=== PATIENT | female | born 1970 | race Caucasian/White ===

== ENCOUNTER 2016-07-21 12:32 | Emergency (ER) | payer SELFPAY ==
[2016-07-21] MEDS ORDERED: Rocephin 1000 MG INJ IM ONE (12:43)
[2016-07-21] MEDS ORDERED: Rocephin 1000 MG INJ ONE (12:46)
[2016-07-21] MEDS ORDERED: XYLOCAINE 1% HCL 20 ML MDV ONE (12:47)
--- NOTE | 2016-07-21 12:47 | ERPHSYRPT ---
- History of Present Illness Time Seen by Provider: 07/21/16 12:44 Source: patient Exam Limitations: no limitations Patient Subjective Stated Complaint: left side of jaw swollen gargled salt water and its continued to swell Triage Nursing Assessment: patient left side of jaw swollen, major tooth decay in patients mouth Physician History: left side of jaw swollen gargled salt water and its continued to swell for 2-3 days Timing/Duration: day(s) (2-3 days) Severity: moderate Allergies/Adverse Reactions: aspirin Allergy (Verified 02/15/16 01:50) Hx Tetanus, Diphtheria Vaccination/Date Given: No Hx Influenza Vaccination/Date Given: No Hx Pneumococcal Vaccination/Date Given: No Immunizations Up to Date: No - Review of Systems Constitutional: No Symptoms Eyes: No Symptoms Ears, Nose, & Throat: Mouth Pain, Mouth Swelling, Loose Teeth Respiratory: No Symptoms Cardiac: No Symptoms Abdominal/Gastrointestinal: No Symptoms - Past Medical History Pertinent Past Medical History: Yes Other Medical History: BLOOD DISORDER: LUAN WILDEBRENDS - Past Surgical History Past Surgical History: Yes Female Surgical History: Tubal Ligation Other Surgical History: TUBAL LIGATION IN 1991 - Social History Smoking Status: Current every day smoker How long have you smoked: 30 Exposure to second hand smoke: Yes Drug Use: none Patient Lives Alone: No - Nursing Vital Signs Nursing Vital Signs: Initial Vital Signs Temperature 98.2 F Temperature Source Oral Pulse Rate 89 Respiratory Rate 20 Blood Pressure [Left Arm] 178/87 Pain Intensity 9 - Physical Exam General Appearance: no apparent distress Eye Exam: PERRL/EOMI Ears, Nose, Throat Exam: normal ENT inspection, other (multiple teeth decays) SpO2: 98 Oxygen Delivery: Room Air - Course Nursing assessment & vital signs reviewed: Yes - Progress Progress: unchanged Counseled pt/family regarding: diagnosis, need for follow-up - Departure Time of Disposition: 12:45 Departure Disposition: Home Clinical Impression: Dental caries extending into pulp Condition: Stable Critical Care Time: No Referrals: LUISA DELACRUZ MD [Primary Care Provider] - Instructions: Tooth Decay Additional Instructions: Please follow the instructions given to you. Please take your medication as prescribed if given. If symptoms recur or get worse, come back to the emergency room if you cannot reach your primary care physician, or call your primary care physician for an appointment. Again if your symptoms get worse, come back to the emergency room. Thanks for visiting emergency room, and let us take care of you. Prescriptions: Cephalexin Mh 500 mg [Keflex 500 mg] 500 mg PO Q6H #40 capsule
[2016-07-21 13:14] VITALS: BP 155/79; PULSE 79; O2SAT 100
== END 2016-07-21 13:14 | disposition home or self-care (01) ==
LOC: ED 12:32
DX: K02.9 Dental caries, unspecified (principal)
CPT/HCPCS: 96372; 99282; J0696

== ENCOUNTER 2016-08-21 01:15 | Emergency (ER) | payer SELFPAY ==
[2016-08-21] MEDS ORDERED: Rocephin 1000 MG INJ IM ONE (01:33)
[2016-08-21] MEDS ORDERED: PERCOCET TABLET 5/325MG PO STA (01:33)
--- NOTE | 2016-08-21 01:46 | ERPHSYRPT ---
- History of Present Illness Time Seen by Provider: 08/21/16 01:22 Source: patient Exam Limitations: no limitations Patient Subjective Stated Complaint: pt states she has had pain and swelling in her lt lower jaw for approx 3-4 days. states she came here to the er (does not know what day) and was prescribed keflex. states it isnt working. Triage Nursing Assessment: pt alert and oriented. answers questions approp. pt ambulatory with steady gait noted. respirations nonlabored. lungs cta. skin pink warm and dry. pt has multiple blackened teeth and swelling to lt lower jaw. Physician History: FOR THE PAST 5 DAYS PT HAS HAD PAINFUL SWELLING OF HER LEFT LOWER JAW; DENIES FEVER, VOMITING, CHEST PAIN, SHORTNESS OF AIR. Allergies/Adverse Reactions: aspirin Allergy (Verified 02/15/16 01:50) Home Medications: No Home Meds 1 ea UD 08/21/16 [History] Hx Tetanus, Diphtheria Vaccination/Date Given: No Hx Influenza Vaccination/Date Given: No Hx Pneumococcal Vaccination/Date Given: No Immunizations Up to Date: No - Review of Systems Constitutional: No Fever Ears, Nose, & Throat: Other (LEFT LOWER JAW SWELLING & PAIN) Respiratory: No Dyspnea Cardiac: No Chest Pain All Other Systems: Reviewed and Negative - Past Medical History Pertinent Past Medical History: Yes Other Medical History: BLOOD DISORDER: LUAN WILDEBRENDS - Past Surgical History Past Surgical History: Yes Female Surgical History: Tubal Ligation Other Surgical History: TUBAL LIGATION IN 1991 - Social History Smoking Status: Current every day smoker How long have you smoked: 30 Exposure to second hand smoke: Yes Drug Use: none Patient Lives Alone: No - Female History Hx Last Menstrual Period: 08/12/16 - Nursing Vital Signs Nursing Vital Signs: Initial Vital Signs Temperature 100.6 F Temperature Source Oral Pulse Rate 100 Respiratory Rate 16 Blood Pressure [Right Arm] 187/99 Pain Intensity 8 - Physical Exam General Appearance: alert Eye Exam: bilateral eye: PERRL, EOMI Ear Exam: bilateral ear: TM normal Nasal Exam: normal inspection Throat Exam: mandibular swelling (MILD EDEMA, ERYTHEMA AND TENDERNESS OF THE GUM SURROUNDING A LEFT MANDIBULAR PREMOLAR.), moist mucus membranes Neck Exam: trachea midline Cardiovascular/Respiratory Exam: normal breath sounds, heart sounds normal Abdominal Exam: soft (B.S. NORMAL) Neurologic Exam: alert, cooperative Skin Exam: warm, dry SpO2 Interpretation: normal SpO2: 98 Oxygen Delivery: Room Air - Course Nursing assessment & vital signs reviewed: Yes Ordered Tests: Medication Summary Discontinued Medications Generic Name Dose Route Start Last Admin Trade Name Tabitha PRN Reason Stop Dose Admin Ceftriaxone Sodium 1,000 mg 08/21/16 01:33 Rocephin 1000 Mg Inj IM 08/21/16 01:34 STAT ONE Oxycodone/Acetaminophen 2 tab 08/21/16 01:33 Percocet Tablet 5/325mg PO 08/21/16 01:34 SENT HOME W/ PATIENT STA - Departure Time of Disposition: 01:48 Departure Disposition: Home Clinical Impression: TOOTH ABSCESS Condition: Fair Critical Care Time: No Instructions: Tooth Abscess Additional Instructions: FOLLOW UP WITH PRIVATE DOCTOR & DENTIST LATER TODAY. Prescriptions: Naproxen [Naprosyn] 500 mg PO [id number] PRN #20 tablet PRN Reason: Pain Ciprofloxacin HCl 500 mg [Cipro 500 MG] 500 mg PO BIDAC #20 tablet
[2016-08-21] MEDS ORDERED: PERCOCET TABLET 5/325MG ONE (02:02)
[2016-08-21] MEDS ORDERED: Rocephin 1000 MG INJ ONE (02:02)
[2016-08-21] MEDS ORDERED: XYLOCAINE 1% HCL 20 ML MDV ONE (02:02)
[2016-08-21 02:17] VITALS: O2SAT 97
[2016-08-21 03:04] VITALS: BP 167/87; PULSE 86
== END 2016-08-21 02:40 | disposition home or self-care (01) ==
LOC: ED 01:15
DX: K04.7 Periapical abscess without sinus (principal); R22.0 Localized swelling, mass and lump, head; R68.84 Jaw pain
CPT/HCPCS: 96365; 96372; 99284; J0696

== ENCOUNTER 2017-07-01 16:58 | Emergency (ER) | payer OTHER ==
[2017-07-01] MEDS ORDERED: TORAdol 30 mg Injection IM ONE (17:28)
--- NOTE | 2017-07-01 17:28 | ERPHSYRPT ---
- History of Present Illness Time Seen by Provider: 07/01/17 17:23 Source: patient Exam Limitations: no limitations Patient Subjective Stated Complaint: Pt states "My face has been swollen since this morning. I have tried calling dentists all day and no one accepts my insurance." Triage Nursing Assessment: Pt alert and oriented X 3,s kin pwd. Pt ambulates with an upright steady gait, able to speak in clear full sentences. Pt upper right jaw swollen, lower left slightly swollen, several dental carries noted in mouth upon inspection Physician History: The patient is a 47-year-old female with her complaining of front upper gum tenderness and swelling that began this morning. She has known poor dentition. She'll the worked half a day today. She is currently taking cephalexin for another infection. She has tried calling the dentist office today without being able to find an appointment. Her past medical history is significant for appendicitis and dental caries. Timing/Duration: gradual onset Severity: moderate ENT Location: dental Prearrival Treatment: no prearrival treatment Modifying Factors: Improves With: nothing Associated Symptoms: facial pain/swelling Allergies/Adverse Reactions: aspirin Allergy (Verified 02/15/16 01:50) Hx Tetanus, Diphtheria Vaccination/Date Given: Yes Hx Influenza Vaccination/Date Given: No Hx Pneumococcal Vaccination/Date Given: No Immunizations Up to Date: Yes - Review of Systems Constitutional: No Fever, No Chills Eyes: No Symptoms Ears, Nose, & Throat: Mouth Pain Respiratory: No Cough, No Dyspnea Cardiac: No Chest Pain, No Edema, No Syncope Abdominal/Gastrointestinal: No Abdominal Pain, No Nausea, No Vomiting, No Diarrhea Genitourinary Symptoms: No Dysuria Musculoskeletal: No Back Pain, No Neck Pain Skin: No Rash Neurological: No Dizziness, No Focal Weakness, No Sensory Changes Psychological: No Symptoms Endocrine: No Symptoms Hematologic/Lymphatic: No Symptoms Immunological/Allergic: No Symptoms All Other Systems: Reviewed and Negative - Past Medical History Pertinent Past Medical History: Yes Other Medical History: BLOOD DISORDER: LUAN WILDEBRENDS - Past Surgical History Past Surgical History: Yes Female Surgical History: Tubal Ligation Other Surgical History: TUBAL LIGATION IN 1991 - Social History Smoking Status: Current every day smoker How long have you smoked: years Exposure to second hand smoke: Yes Drug Use: none Patient Lives Alone: No - Female History Hx Last Menstrual Period: 06/30/2017 Hx Now: No - Nursing Vital Signs Nursing Vital Signs: Initial Vital Signs Temperature 97.3 F 07/01/17 17:05 Pulse Rate 92 H 07/01/17 17:05 Respiratory Rate 18 07/01/17 17:05 Blood Pressure 177/90 07/01/17 17:05 O2 Sat by Pulse Oximetry 100 07/01/17 17:05 Pain Scale Pain Intensity 6 - Physical Exam General Appearance: mild distress Eye Exam: bilateral eye: normal inspection Ear Exam: bilateral ear: auricle normal Throat Exam: dental tenderness (upper anterior gum swelling, redness, and tenderness. Poor dentition.) Neck Exam: supple Cardiovascular/Respiratory Exam: chest non-tender Abdominal Exam: non-tender, soft Neurologic Exam: alert Skin Exam: normal color, warm, dry SpO2 Interpretation: normal SpO2: 100 Oxygen Delivery: Room Air - Progress Counseled pt/family regarding: diagnosis - Departure Time of Disposition: 17:32 Departure Disposition: Home Clinical Impression: Dental abscess Condition: Stable Critical Care Time: No Referrals: LUISA DELACRUZ MD [Primary Care Provider] - Additional Instructions: You have a dental abscess in the front of the upper jaw. You were given Toradol 60 mg by IM in the ER. Take penicillin VK 500 mg 4 times a day for 10 days. Follow up as soon as possible with a dentist. Prescriptions: Penicillin V Potassium 500 mg PO QID #40 tablet
[2017-07-01] MEDS ORDERED: TORAdol 30 mg Injection ONE (17:52)
[2017-07-01 18:40] VITALS: BP 176/88; PULSE 86; O2SAT 98
== END 2017-07-01 18:07 | disposition home or self-care (01) ==
LOC: ED 16:58
DX: K04.7 Periapical abscess without sinus (principal)
CPT/HCPCS: 96372; 99283; 99284; J1885

== ENCOUNTER 2017-07-03 23:57 | Emergency (ER) | payer OTHER ==
[2017-07-04] MEDS ORDERED: Sodium Chloride 0.9% 1000 ML 1,000 ML IV STA (00:58)
[2017-07-04] MEDS ORDERED: MORPHINE SULFATE 4 MG INJ IV ONE (00:58)
[2017-07-04] MEDS ORDERED: Zofran 4 MG/2 ML VIAL IV ONE (00:58)
--- NOTE | 2017-07-04 01:05 | ERPHSYRPT ---
- History of Present Illness Time Seen by Provider: 07/04/17 00:58 Historian: patient Exam Limitations: no limitations Patient Subjective Stated Complaint: Emesis Triage Nursing Assessment: Pt states onset of emesis and nausea x2 days ago, pt states unable to eat or drink anything due to nausea. Pt states so also has LLQ abdominal pain. Pt denies chest pain, sob or other complaints. Pt is A&O x4, no distress noted. Skin PWD. Physician History: Pt is c/o LLQ abdominal pain, left flank pain, started 2 days ago, vomiting frequently, denies fever, cold symptoms except mild, nonproductive cough, no chest pain, SOB, diarrhea, urinary complaints. Timing/Duration: day(s) (2), worse Activities at Onset: none Quality: cramping Abdominal Pain Onset Location: LLQ Pain Radiation: flank Severity of Pain-Max: severe Severity of Pain-Current: severe Modifying Factors: Improves With: nothing Associated Symptoms: nausea, vomiting Previous symptoms: no prior history Allergies/Adverse Reactions: aspirin Allergy (Verified 02/15/16 01:50) Penicillins Adverse Reaction (Mild, Verified 07/04/17 00:58) Nausea and Vomiting Hx Tetanus, Diphtheria Vaccination/Date Given: No Hx Influenza Vaccination/Date Given: No Hx Pneumococcal Vaccination/Date Given: No Immunizations Up to Date: No - Review of Systems Constitutional: No Symptoms Abdominal/Gastrointestinal: Abdominal Pain, Nausea, Vomiting, No Diarrhea Genitourinary Symptoms: No Symptoms All Other Systems: Reviewed and Negative - Past Medical History Pertinent Past Medical History: Yes Other Medical History: BLOOD DISORDER: LUAN WILDEBRENDS - Past Surgical History Past Surgical History: Yes Gastrointestinal: Appendectomy Female Surgical History: Tubal Ligation Other Surgical History: TUBAL LIGATION IN 1991 - Social History Smoking Status: Current every day smoker How long have you smoked: 30 years Exposure to second hand smoke: Yes Drug Use: none Patient Lives Alone: No - Female History Hx Now: No - Nursing Vital Signs Nursing Vital Signs: Initial Vital Signs Temperature 99.6 F 07/04/17 00:50 Pulse Rate 108 H 07/04/17 00:50 Respiratory Rate 18 07/04/17 00:50 Blood Pressure 169/96 07/04/17 00:50 O2 Sat by Pulse Oximetry 97 07/04/17 00:50 Pain Scale Pain Intensity 3 - Physical Exam General Appearance: no apparent distress Eye Exam: eyes nml inspection Ears, Nose, Throat Exam: normal ENT inspection Neck Exam: normal inspection, non-tender, supple Respiratory Exam: normal breath sounds, lungs clear Cardiovascular Exam: regular rate/rhythm, normal heart sounds, normal peripheral pulses, No murmur Gastrointestinal/Abdomen Exam: soft, normal bowel sounds, tenderness (LLQ, mod. mild diffuse- abd. ), No distention, No mass Back Exam: CVA tenderness (left) Extremity Exam: normal inspection Neurologic Exam: alert, oriented x 3 Skin Exam: normal color, warm, dry, No rash Lymphatic Exam: No adenopathy SpO2 Interpretation: normal SpO2: 97 Oxygen Delivery: Room Air - CT Exams Abdomen/Pelvis CT Interpretation: Negative Ordered Tests: Active Orders 24 hr Category Date Time Status IV Insertion STAT Care 07/04/17 00:58 Active NPO (ED) STAT Care 07/04/17 00:58 Active ABDOMEN AND PELVIS W/0 CONTRAS [CT] Stat Exams 07/04/17 00:59 Taken AMYLASE Stat Lab 07/04/17 01:15 Completed CBC W DIFF Stat Lab 07/04/17 01:15 Completed CMP Stat Lab 07/04/17 01:15 Completed HCG,QUALITATIVE URINE Stat Lab 07/04/17 01:15 Completed LIPASE Stat Lab 07/04/17 01:15 Completed UA W/RFX UR CULTURE Stat Lab 07/04/17 01:15 Completed Medication Summary Discontinued Medications Generic Name Dose Route Start Last Admin Trade Name Freq PRN Reason Stop Dose Admin Sodium Chloride 1,000 mls @ 999 mls/hr 07/04/17 00:58 07/04/17 02:00 Sodium Chloride 0.9% 1000 Ml IV 07/04/17 01:58 999 mls/hr .Q1H1M STA Administration Sodium Chloride Confirm 07/04/17 01:24 Sodium Chloride 0.9% 1000 Ml Administered 07/04/17 01:25 Dose 1,000 mls @ ud .ROUTE .STK-MED ONE Morphine Sulfate 4 mg 07/04/17 00:58 07/04/17 02:00 Morphine Sulfate 4 Mg Inj IV 07/04/17 00:59 4 mg STAT ONE Administration Morphine Sulfate Confirm 07/04/17 01:24 Morphine Sulfate 4 Mg Inj Administered 07/04/17 01:25 Dose 4 mg .ROUTE .STK-MED ONE Ondansetron HCl 4 mg 07/04/17 00:58 07/04/17 02:01 Zofran 4 Mg/2 Ml Vial IV 07/04/17 00:59 4 mg STAT ONE Administration Ondansetron HCl Confirm 07/04/17 01:24 Zofran 4 Mg/2 Ml Vial Administered 07/04/17 01:25 Dose 4 mg .ROUTE .STK-MED ONE Lab/Rad Data: Laboratory Result Diagrams 07/04/17 01:15 07/04/17 01:15 Laboratory Results 07/04/17 07/04/17 07/04/17 Range/Units 01:15 01:15 01:15 WBC (4.0-10.5) K/mm3 RBC (4.1-5.4) M/mm3 Hgb (12.0-16.0) gm/dl Hct (35-47) % MCV (78-100) fl MCH (26-32) pg MCHC (32-36) g/dl RDW (11.5-14.0) % Plt Count (150-450) K/mm3 MPV (6-9.5) fl Gran % (36.0-66.0) % Lymphocytes % (24.0-44.0) % Monocytes % (0.0-12.0) % Eosinophils % (0.00-5.0) % Basophils % (0.0-0.4) % Basophils # (0-0.4) Sodium 139 (136-145) mEq/L Potassium 3.5 (3.5-5.1) mEq/L Chloride 102 (98-107) mEq/L Carbon Dioxide 28.9 (21-32) mEq/L Anion Gap 11.6 (5-15) MEQ/L BUN 12 (9-20) mg/dL Creatinine 1.15 (0.55-1.30) mg/dl Estimated GFR 54 ML/MIN Glucose 117 H (70-110) MG/DL Calcium 9.0 (8.5-10.1) mg/dL Total Bilirubin 1.00 (0.2-1.0) mg/dL AST 16 (15-37) U/L ALT 14 (12-78) U/L Alkaline Phosphatase 68 (46-116) U/L Serum Total Protein 7.1 (6.4-8.2) gm/dL Albumin 3.7 (3.4-5.0) g/dL Amylase 54 (25-115) U/L Lipase 129 (73-393) U/L Ur Collection Type CLEAN CATCH Urine Color YELLOW (YELLOW) Urine Appearance CLEAR (CLEAR) Urine pH 5.0 (5-6) Ur Specific [place] 1.015 (1.005-1.025) Urine Protein NEGATIVE (Negative) Urine Ketones NEGATIVE (NEGATIVE) Urine Blood NEGATIVE (0-5) Kareem/ul Urine Nitrite NEGATIVE (NEGATIVE) Urine Bilirubin NEGATIVE (NEGATIVE) Urine Urobilinogen NORMAL (0-1) mg/dL Ur Leukocyte Esterase NEGATIVE (NEGATIVE) Urine Culture Reflexed NO (NO) Urine Glucose 50 (NEGATIVE) mg/dL Urine HCG, Qual NEGATIVE (Negative) Specimen Received 07/04/17 0115 07/04/17 Range/Units 01:15 WBC 5.1 (4.0-10.5) K/mm3 RBC 4.84 (4.1-5.4) M/mm3 Hgb 13.1 (12.0-16.0) gm/dl Hct 40.3 (35-47) % MCV 83.3 (78-100) fl MCH 27.1 (26-32) pg MCHC 32.5 (32-36) g/dl RDW 15.4 H (11.5-14.0) % Plt Count 226 (150-450) K/mm3 MPV 10.4 H (6-9.5) fl Gran % 63.5 (36.0-66.0) % Lymphocytes % 24.2 (24.0-44.0) % Monocytes % 11.9 (0.0-12.0) % Eosinophils % 0.2 (0.00-5.0) % Basophils % 0.2 (0.0-0.4) % Basophils # 0.01 (0-0.4) Sodium (136-145) mEq/L Potassium (3.5-5.1) mEq/L Chloride (98-107) mEq/L Carbon Dioxide (21-32) mEq/L Anion Gap (5-15) MEQ/L BUN (9-20) mg/dL Creatinine (0.55-1.30) mg/dl Estimated GFR ML/MIN Glucose (70-110) MG/DL Calcium (8.5-10.1) mg/dL Total Bilirubin (0.2-1.0) mg/dL AST (15-37) U/L ALT (12-78) U/L Alkaline Phosphatase (46-116) U/L Serum Total Protein (6.4-8.2) gm/dL Albumin (3.4-5.0) g/dL Amylase (25-115) U/L Lipase (73-393) U/L Ur Collection Type Urine Color (YELLOW) Urine Appearance (CLEAR) Urine pH (5-6) Ur Specific [place] (1.005-1.025) Urine Protein (Negative) Urine Ketones (NEGATIVE) Urine Blood (0-5) Kareem/ul Urine Nitrite (NEGATIVE) Urine Bilirubin (NEGATIVE) Urine Urobilinogen (0-1) mg/dL Ur Leukocyte Esterase (NEGATIVE) Urine Culture Reflexed (NO) Urine Glucose (NEGATIVE) mg/dL Urine HCG, Qual (Negative) Specimen Received - Progress Progress: improved Progress Note: 07/04/17 03:20 Improved after iv Morphine, Zofran and fluids, afebrile, no severe pain or vomiting. Stable. I informed her and renetta about the results, and suggested 2-3 days rest and liquid diet, and return if any worsening, follow up with her PCP next week, she understood, and agreed with the plan. All questions answered. - Departure Time of Disposition: 03:22 Departure Disposition: Home Clinical Impression: Abdominal pain Qualifiers: Abdominal location: left lower quadrant Qualified Code(s): R10.32 - Left lower quadrant pain Condition: Stable Critical Care Time: No Referrals: LUISA DELACRUZ MD [Primary Care Provider] - Instructions: Vomiting -- Adult, Acute Abdomen (Belly Pain), Adult (DC) Additional Instructions: Rest x 2-3 days, drink plenty of fluids, return if severe pain, vomiting, fever > 102 F! Prescriptions: Ondansetron [Zofran Odt] 4 mg PO Q6H PRN PRN 7 Days #10 tab.rapdis PRN Reason: Nausea/Vomiting Dicyclomine HCl 20 mg [Bentyl 20 mg] 20 mg PO Q8H PRN PRN #15 tablet PRN Reason: Pain
[2017-07-04] MEDS ORDERED: Zofran 4 MG/2 ML VIAL ONE (01:24)
[2017-07-04] MEDS ORDERED: Sodium Chloride 0.9% 1000 ML 1,000 ML ONE (01:24)
[2017-07-04] MEDS ORDERED: MORPHINE SULFATE 4 MG INJ ONE (01:24)
[2017-07-04 01:26] LABS: BASOPHIL % 0.2 % (0.0-0.4); Basophil (Absolute #) 0.01 (0-0.4); Eosinophil % 0.2 % (0.00-5.0); Eosinophil (Absolute #) 0.01 (0-0.5); Granulocyte Absolute (ANC) 3.21 (1.4-6.9); Granulocytes % 63.5 % (36.0-66.0); Hematocrit 40.3 % (35-47); Hemoglobin 13.1 gm/dl (12.0-16.0); Lymphocyte (Absolute #) 1.22 (1.0-4.6); Lymphocytes % 24.2 % (24.0-44.0); Mean Cell Volume 83.3 fl (78-100); Mean Corpuscular Hemoglobin 27.1 pg (26-32); Mean Corpuscular Hgb Concent. 32.5 g/dl (32-36); Mean Platelet Volume 10.4 fl (6-9.5); Monocytes % 11.9 % (0.0-12.0); Platelet Count 226 K/mm3 (150-450); Red Blood Count 4.84 M/mm3 (4.1-5.4); Red Cell Distribution Width 15.4 % (11.5-14.0); White Blood Count 5.1 K/mm3 (4.0-10.5)
[2017-07-04 01:31] LABS: Appearance CLEAR (CLEAR)
[2017-07-04 01:32] LABS: Bilirubin NEGATIVE (NEGATIVE); Blood NEGATIVE Ery/ul (0-5); Glucose 50 mg/dL (NEGATIVE); Ketones NEGATIVE (NEGATIVE); Leukocyte Esterase NEGATIVE (NEGATIVE); Nitrite NEGATIVE (NEGATIVE); Protein,Urine Dip NEGATIVE (Negative); Specific Gravity 1.015 (1.005-1.025); Urobilinogen NORMAL mg/dL (0-1)
[2017-07-04 01:47] LABS: ALBUMIN 3.7 g/dL (3.4-5.0); ANION GAP 11.6 MEQ/L (5-15); Carbon Dioxide 28.9 mEq/L (21-32); Creatinine 1 1.15 mg/dl (0.55-1.30); Potassium 3.5 mEq/L (3.5-5.1); Total Protein 7.1 gm/dL (6.4-8.2)
[2017-07-04 03:38] VITALS: BP 152/90; PULSE 80; O2SAT 98
--- NOTE | 2017-07-04 09:43 | XRAY ---
Indication: Left lower quadrant pain. Multiple contiguous axial images obtained through the abdomen and pelvis without contrast as ordered. Comparison: February 15, 2016. Lung bases demonstrates minimal fibrosis/scarring. No infiltrate or effusion. Heart is not enlarged. Noncontrasted stomach and bowel loops nonobstructed. There is mild diffuse scattered colonic fecal debris. Interval appendectomy. New 2.5 cm right ovary cyst. No free fluid/air. Spleen remains enlarged today 14.3 cm in greatest axial dimension. Again mild fatty liver. Remaining liver, gallbladder, pancreas, spleen, adrenal glands, kidneys, ureters, bladder, and uterus appear unremarkable for noncontrast exam. There remains mild aortoiliac calcifications without AAA. Osseous structures intact. Impression: 1. Mild fecal stasis without obstruction. 2. Incidental splenomegaly, fatty liver, and 2.5 cm right ovary cyst. 3. No acute intra-abdominal/pelvic abnormalities on this noncontrast exam. Comment: Preliminary interpretation was made by [facility]. No critical discrepancy. CTDI 21.39
== END 2017-07-04 03:41 | disposition home or self-care (01) ==
LOC: ED 23:57
DX: R10.32 Left lower quadrant pain (principal); R11.2 Nausea with vomiting, unspecified
CPT/HCPCS: 36000; 36415; 74176; 80053; 81002; 82150; 83690; 84703; 85025; 96374; 96375; 99284; J2270; J2405

== ENCOUNTER 2018-04-29 21:02 | Emergency (ER) | payer OTHER ==
[2018-04-29 21:14] VITALS: BP 197/95; PULSE 84; O2SAT 100
[2018-04-29] MEDS ORDERED: Norco 10/325 MG Tablet PO ONE (21:33)
[2018-04-29] MEDS ORDERED: NORCO 5/325 MG PO ONE (21:34)
[2018-04-29] MEDS ORDERED: Augmentin 875-125 Tablet PO ONE (21:34)
--- NOTE | 2018-04-29 21:35 | ERPHSYRPT ---
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 pt is ambulatory. pt comes in with complaint of dental pain on the left side of her mouth. pt saw dentist about 3 weeks ago and was put on an antibiotic but did not finish it "because it wasn't working". pt has multiple black and rotting teeth, chipped teeth, very poor dentition. Triage Nursing Assessment: see above Physician History: PATIENT WITH A HISTORY OF TYPE 2 DIABETES, AND HYPERTENSION, COMPLAINS OF LEFT UPPER DENTAL PAIN WITH WIDESPREAD DENTAL CARIES. EVALUATED BY DENTIST 2 WEEKS AGO AWAITING REFERRAL. DENIES FEVER, CHILLS, DIFFICULTY SWALLOWING OR BREATHING. Timing/Duration: gradual onset Severity: severe ENT Location: dental Prearrival Treatment: prescription meds ( DISCONTINUED ANTIBIOTICS) Modifying Factors: Improves With: nothing Associated Symptoms: facial pain/swelling Allergies/Adverse Reactions: aspirin Allergy (Verified 02/15/16 01:50) Home Medications: Bisoprolol/Hydrochlorothiazide [Bisoprolol-Hctz 2.5-6.25 mg Tb] 1 tab PO DAILY 04/29/18 [History] Glimepiride 1 tab PO DAILY 04/29/18 [History] Metformin HCl 500 mg [Glucophage 500 MG] 500 mg PO DAILY 04/29/18 [History ] Hx Tetanus, Diphtheria Vaccination/Date Given: No Hx Influenza Vaccination/Date Given: No Hx Pneumococcal Vaccination/Date Given: No Immunizations Up to Date: Yes - Review of Systems Constitutional: No Symptoms Ears, Nose, & Throat: Mouth Pain, Loose Teeth Respiratory: No Symptoms Cardiac: No Symptoms Abdominal/Gastrointestinal: No Symptoms Musculoskeletal: No Symptoms - Past Medical History Pertinent Past Medical History: Yes Neurological History: No Pertinent History ENT History: No Pertinent History Cardiac History: Hypertension Respiratory History: No Pertinent History Endocrine Medical History: Diabetes Type II Musculoskeletal History: No Pertinent History GI Medical History: No Pertinent History History: No Pertinent History Psycho-Social History: No Pertinent History Female Reproductive Disorders: No Pertinent History Other Medical History: BLOOD DISORDER: LUAN WILDEBRENDS - Past Surgical History Past Surgical History: Yes Neuro Surgical History: No Pertinent History Cardiac: No Pertinent History Respiratory: No Pertinent History Gastrointestinal: Appendectomy Genitourinary: No Pertinent History Female Surgical History: Tubal Ligation Other Surgical History: TUBAL LIGATION IN 1991 - Social History Smoking Status: Current every day smoker How long have you smoked: 31 years Exposure to second hand smoke: Yes Drug Use: none Patient Lives Alone: No - Female History Hx Now: No - Nursing Vital Signs Nursing Vital Signs: Initial Vital Signs Temperature 98.1 F 04/29/18 21:02 Pulse Rate 84 04/29/18 21:02 Respiratory Rate 20 04/29/18 21:02 Blood Pressure 197/95 04/29/18 21:02 O2 Sat by Pulse Oximetry 100 04/29/18 21:02 Pain Scale Pain Intensity 9 - Physical Exam General Appearance: no apparent distress Eye Exam: bilateral eye: normal inspection, PERRL, EOMI Ear Exam: bilateral ear: auricle normal, canal normal, TM normal Nasal Exam: normal inspection Throat Exam: dental tenderness (WIDESPREAD DENTAL CARIES WITH EROSIONS INTO GINGIVA WITH GINGIVAL SWELLING, POSTERIOR PHARYNX NEGATIVE) Neck Exam: normal inspection, non-tender Cardiovascular/Respiratory Exam: chest non-tender, normal breath sounds SpO2 Interpretation: normal SpO2: 100 Oxygen Delivery: Room Air Ordered Tests: Medication Summary Discontinued Medications Generic Name Dose Route Start Last Admin Trade Name Freq PRN Reason Stop Dose Admin Hydrocodone Bitart/Acetaminophen 1 tab 04/29/18 21:33 Thorofare 10/325 Mg Tablet PO 04/29/18 21:34 STAT ONE Hydrocodone Bitart/Acetaminophen 2 tab 04/29/18 21:34 Thorofare 5/325 Mg PO 04/29/18 21:35 SENT HOME W/ PATIENT ONE Amoxicillin/Clavulanate Potassium 875 mg 04/29/18 21:34 Augmentin 875-125 Tablet PO 04/29/18 21:35 STAT ONE - Progress Progress Note: 04/29/18 21:40 ADMINISTERED AUGMENTIN 875MG AND NORCO 10/325 ORALLY 04/29/18 21:42 ACCUCHECK 109 Counseled pt/family regarding: diagnosis - Departure Time of Disposition: 22:00 Departure Disposition: Home Clinical Impression: WIDESPREAD DENTAL CARIES Condition: Stable Critical Care Time: No Referrals: LUISA DELACRUZ MD [Primary Care Provider] - Additional Instructions: FOLLOWUP WITH YOUR DENTIST TOMORROW FOR EVALUATION. ANTIBIOTIC AUGMENTIN 875MG TWICE DAILY FOR 10 DAYS. NORCO 5/325 EVERY 6 HOURS FOR PAIN. CONSULT YOUR PRIMARY CARE PROVIDER FOR FOLLOWUP. Prescriptions: Hydrocodone Bit/Acetaminophen [Thorofare 5-325 Tablet] 1 each PO Q4H PRN PRN #10 tablet MDD 4 PRN Reason: Pain Amox Tr/Potass Clav. 875 mg [Augmentin 875-125 Tablet] 875 mg PO BID #20 tablet
[2018-04-29] MEDS ORDERED: NORCO 5/325 MG ONE (21:40)
[2018-04-29] MEDS ORDERED: Augmentin 875-125 Tablet ONE (21:40)
[2018-04-29] MEDS ORDERED: Norco 10/325 MG Tablet ONE (21:41)
== END 2018-04-29 21:56 | disposition home or self-care (01) ==
LOC: ED 21:02
DX: K02.9 Dental caries, unspecified (principal); Z79.899 Other long term (current) drug therapy
CPT/HCPCS: 99283; A9270-GY

== ENCOUNTER 2018-05-26 19:08 | Emergency (ER) | payer OTHER ==
--- NOTE | 2018-05-26 19:34 | ERPHSYRPT ---
- History of Present Illness Time Seen by Provider: 05/26/18 19:25 Source: patient Patient Subjective Stated Complaint: body aches cough and congestion. diarrhea x1 nausea. significant other dx with influenza yesterday Triage Nursing Assessment: wheezes noted on lung ausc. no vomiting and diarrhea noted as of yet. skin warm and dry. face appears flushed Physician History: 48 y/o white female presents with body aches, cough and congestion and diarrhea today. pts sig other dx with flu yesterday. pt was placed on a z pack for dental infection recently and took last dose today. no vomiting but a little nausea Timing/Duration: today Cough Quality/Degree: mild Possible Cause: occasional episodes Modifying Factors: Improves With: coughing Associated Symptoms: cough, muscle aches International travel in last 2 weeks: No Allergies/Adverse Reactions: aspirin Allergy (Verified 02/15/16 01:50) Home Medications: Bisoprolol/Hydrochlorothiazide [Bisoprolol-Hctz 2.5-6.25 mg Tb] 1 tab PO DAILY 04/29/18 [History] Glimepiride 1 tab PO DAILY 04/29/18 [History] Metformin HCl 500 mg [Glucophage 500 MG] 500 mg PO DAILY 04/29/18 [History ] Hx Tetanus, Diphtheria Vaccination/Date Given: No Hx Influenza Vaccination/Date Given: No Hx Pneumococcal Vaccination/Date Given: No Immunizations Up to Date: Yes - Review of Systems Constitutional: No Symptoms, Fever Eyes: No Symptoms, Discharge Ears, Nose, & Throat: No Symptoms, No Ear Pain, No Nose Congestion Respiratory: Cough, No Dyspnea, No Stridor, No Wheezing Cardiac: No Symptoms Abdominal/Gastrointestinal: No Symptoms, Nausea, No Vomiting, No Diarrhea Genitourinary Symptoms: No Symptoms, No Dysuria, No Hematuria Musculoskeletal: No Symptoms Skin: No Symptoms Neurological: No Symptoms Psychological: No Symptoms Endocrine: No Symptoms Hematologic/Lymphatic: No Symptoms Immunological/Allergic: No Symptoms All Other Systems: Reviewed and Negative - Past Medical History Pertinent Past Medical History: Yes Neurological History: No Pertinent History ENT History: No Pertinent History Cardiac History: Hypertension Respiratory History: No Pertinent History Endocrine Medical History: Diabetes Type II Musculoskeletal History: No Pertinent History GI Medical History: No Pertinent History History: No Pertinent History Psycho-Social History: No Pertinent History Female Reproductive Disorders: No Pertinent History Other Medical History: BLOOD DISORDER: LUAN WILDEBRENDS - Past Surgical History Past Surgical History: Yes Neuro Surgical History: No Pertinent History Cardiac: No Pertinent History Respiratory: No Pertinent History Gastrointestinal: Appendectomy Genitourinary: No Pertinent History Female Surgical History: Tubal Ligation Other Surgical History: TUBAL LIGATION IN 1991 - Social History Smoking Status: Current every day smoker How long have you smoked: 31 years Exposure to second hand smoke: Yes Drug Use: none Patient Lives Alone: No - Female History Hx Last Menstrual Period: occasional Hx Now: No - Nursing Vital Signs Nursing Vital Signs: Initial Vital Signs Temperature 97.4 F 05/26/18 19:16 Pulse Rate 89 05/26/18 19:16 Respiratory Rate 16 05/26/18 19:16 Blood Pressure 180/99 05/26/18 19:16 O2 Sat by Pulse Oximetry 99 05/26/18 19:16 Pain Scale Pain Intensity 2 - Physical Exam General Appearance: no apparent distress, alert, anxiety Ears, Nose, Throat Exam: normal ENT inspection, TMs normal, pharynx normal Neck Exam: normal inspection, non-tender, supple, full range of motion Respiratory Exam: normal breath sounds, lungs clear, airway intact, No chest tenderness, No respiratory distress, No accessory muscle use, No rhonchi, No wheezing, No stridor Cardiovascular Exam: regular rate/rhythm, normal heart sounds, normal peripheral pulses Gastrointestinal/Abdomen Exam: soft, normal bowel sounds, No tenderness, No guarding, No rebound Pelvic Exam: not done Rectal Exam: not done Back Exam: normal inspection, normal range of motion, No CVA tenderness, No vertebral tenderness Extremity Exam: normal inspection, normal range of motion, pelvis stable Neurologic Exam: alert, oriented x 3, cooperative, qualification engineer II-XII nml as tested Skin Exam: normal color, warm, dry Lymphatic Exam: No adenopathy SpO2 Interpretation: normal SpO2: 99 Oxygen Delivery: Room Air Lab/Rad Data: Laboratory Results 05/26/18 Range/Units 19:36 Influenza Type A Ag NEGATIVE (NEGATIVE) Influenza Type B Ag NEGATIVE (NEGATIVE) RSV (PCR) NEGATIVE (Negative) - Progress Progress: re-examined Air Movement: good Counseled pt/family regarding: lab results, diagnosis, need for follow-up - Departure Time of Disposition: 20:30 Departure Disposition: Home Clinical Impression: Bronchitis Condition: Stable Critical Care Time: No Referrals: JAYME,LUISA, MD [Primary Care Provider] - Additional Instructions: drink plenty of fluids. follow up with primary doctor for further management Prescriptions: Albuterol 8 gm Mdi Hfa [Ventolin Hfa MDI] 8 gm IH Q4H #1 [email or web address] Hydrocodone Bit/Acetaminophen [Hydrocodone-Acetaminophen Soln] 10 ml PO Q6H # 120 ml
[2018-05-26 20:14] VITALS: BP 134/82
[2018-05-26 20:24] LABS: INFLUENZA A NEGATIVE (NEGATIVE); INFLUENZA B NEGATIVE (NEGATIVE); RESPIRATORY SYNCTIAL VIRUS NEGATIVE (Negative)
[2018-05-26 20:34] VITALS: O2SAT 99
[2018-05-26] MEDS ORDERED: HYDROCODONE-ACETAMIN 2.5-108/5 ML SOLUTION PO STA (20:34)
[2018-05-26] MEDS ORDERED: DELTASONE 10 MG PO ONE (20:35)
[2018-05-26] MEDS ORDERED: HYDROCODONE-ACETAMIN 2.5-108/5 ML SOLUTION ONE (20:39)
[2018-05-26] MEDS ORDERED: DELTASONE 20 MG ONE (20:39)
[2018-05-26 20:46] VITALS: PULSE 86
== END 2018-05-26 21:02 ==
LOC: ED 19:08
DX: J40 Bronchitis, not specified as acute or chronic (principal)
CPT/HCPCS: 87631; 99284; A9270-GY

== ENCOUNTER 2018-07-14 00:43 | Emergency (ER) | payer OTHER ==
--- NOTE | 2018-07-14 01:11 | ERPHSYRPT ---
- History of Present Illness Time Seen by Provider: 07/14/18 01:06 Source: patient, family Exam Limitations: no limitations Patient Subjective Stated Complaint: Left sided dental pain Triage Nursing Assessment: Patient ambulated back to ED and transferred self to bed. Patient A+O X 3. Patient's skin pink, warm and dry. Patient complains of left sided dental/jaw pain. Left jaw noted to be swollen and tender 5/10. Patient has been using orajel, which has helped some. Physician History: The patient is a 48-year-old female with her daughter complaining of worsening left-sided lower dental pain that began yesterday but has worsened today. She has known poor dentition. She wants to get her teeth pulled and have dentures. She denies fever or chills. She states her left lower jaw is swollen and tender. Her past medical history is significant for dental caries, DM, and HTN. Timing/Duration: gradual onset, yesterday Severity: moderate ENT Location: dental Prearrival Treatment: no prearrival treatment Modifying Factors: Improves With: nothing Associated Symptoms: facial pain/swelling, jaw pain, tooth pain Allergies/Adverse Reactions: aspirin Allergy (Verified 07/14/18 00:59) Home Medications: Bisoprolol/Hydrochlorothiazide [Bisoprolol-Hctz 2.5-6.25 mg Tb] 1 tab PO DAILY 04/29/18 [History] Glimepiride 1 tab PO DAILY 04/29/18 [History] Metformin HCl 500 mg [Glucophage 500 MG] 500 mg PO DAILY 04/29/18 [History ] Hx Tetanus, Diphtheria Vaccination/Date Given: No Hx Influenza Vaccination/Date Given: No Hx Pneumococcal Vaccination/Date Given: No Immunizations Up to Date: Yes - Review of Systems Constitutional: No Fever, No Chills Eyes: No Symptoms Ears, Nose, & Throat: Mouth Pain Respiratory: No Cough, No Dyspnea Cardiac: No Chest Pain, No Edema, No Syncope Abdominal/Gastrointestinal: No Abdominal Pain, No Nausea, No Vomiting, No Diarrhea Genitourinary Symptoms: No Dysuria Musculoskeletal: No Back Pain, No Neck Pain Skin: No Rash Neurological: No Dizziness, No Focal Weakness, No Sensory Changes Psychological: No Symptoms Endocrine: No Symptoms Hematologic/Lymphatic: No Symptoms Immunological/Allergic: No Symptoms All Other Systems: Reviewed and Negative - Past Medical History Pertinent Past Medical History: Yes Neurological History: No Pertinent History ENT History: No Pertinent History Cardiac History: Hypertension Respiratory History: No Pertinent History Endocrine Medical History: Diabetes Type II Musculoskeletal History: No Pertinent History GI Medical History: No Pertinent History History: No Pertinent History Psycho-Social History: No Pertinent History Female Reproductive Disorders: No Pertinent History Other Medical History: BLOOD DISORDER: LUAN WILDEBRENDS - Past Surgical History Past Surgical History: Yes Neuro Surgical History: No Pertinent History Cardiac: No Pertinent History Respiratory: No Pertinent History Gastrointestinal: Appendectomy Genitourinary: No Pertinent History Musculoskeletal: No Pertinent History Female Surgical History: Tubal Ligation Other Surgical History: TUBAL LIGATION IN 1991 - Social History Smoking Status: Current every day smoker How long have you smoked: since Exposure to second hand smoke: Yes Drug Use: none Patient Lives Alone: No - Female History Hx Last Menstrual Period: 2 weeks ago Hx Now: No - Nursing Vital Signs Nursing Vital Signs: Initial Vital Signs Temperature 98.9 F 07/14/18 00:52 Pulse Rate 114 H 07/14/18 00:52 Respiratory Rate 18 07/14/18 00:52 Blood Pressure 194/87 07/14/18 00:52 O2 Sat by Pulse Oximetry 100 07/14/18 00:52 Pain Scale Pain Intensity 5 - Physical Exam General Appearance: no apparent distress, alert Eye Exam: bilateral eye: normal inspection Ear Exam: bilateral ear: auricle normal Nasal Exam: normal inspection Throat Exam: dental tenderness (Oral examination reveals significant dental caries throughout. Left lower jaw shows gum erythema and swelling.), mandibular swelling Neck Exam: supple Cardiovascular/Respiratory Exam: normal breath sounds, regular rate/rhythm Abdominal Exam: non-tender, soft Neurologic Exam: alert, oriented x 3, sensation nml, No motor deficits Skin Exam: normal color, warm, dry SpO2 Interpretation: normal SpO2: 100 O2 Delivery: Room Air - Progress Progress: improved Counseled pt/family regarding: diagnosis, need for follow-up - Departure Time of Disposition: :10 Departure Disposition: Home Clinical Impression: Dental abscess Condition: Stable Critical Care Time: No Referrals: LUISA DELACRUZ MD [Primary Care Provider] - Additional Instructions: You have a dental abscess in your left lower jaw. You were given Toradol 60 mg by IM and penicillin 500 mg orally in the ER. Take penicillin 500 mg 4 times a day for 10 days. Take naproxen 500 mg 2 times a day as needed. Follow-up with your dentist in the next few days. Prescriptions: Naproxen 500 mg PO BID PRN #30 tablet Penicillin V Potassium 500 mg PO QID #40 tablet
[2018-07-14] MEDS ORDERED: TORAdol 30 mg Injection ONE (01:15)
[2018-07-14] MEDS ORDERED: PEN-VEE K ONE (01:16)
[2018-07-14] MEDS: PEN-VEE K PO ONE (01:19)
[2018-07-14] MEDS: TORAdol 30 mg Injection IM ONE (01:19)
[2018-07-14 01:37] VITALS: BP 159/96; PULSE 92; O2SAT 96
== END 2018-07-14 01:37 | disposition home or self-care (01) ==
LOC: ED 00:43
DX: K04.7 Periapical abscess without sinus (principal); E11.9 Type 2 diabetes mellitus without complications; Z79.4 Long term (current) use of insulin; I10 Essential (primary) hypertension; Z72.0 Tobacco use; Z79.899 Other long term (current) drug therapy
CPT/HCPCS: 96372; 99283; J1885; A9270-GY

== ENCOUNTER 2018-09-18 18:00 | Emergency (ER) | payer OTHER ==
[2018-09-18 18:13] VITALS: BP 157/97; PULSE 90; O2SAT 100
--- NOTE | 2018-09-18 18:35 | ERPHSYRPT ---
- History of Present Illness Time Seen by Provider: 09/18/18 18:15 Source: patient Exam Limitations: clinical condition Patient Subjective Stated Complaint: mouth pain on the left upper and lower Triage Nursing Assessment: Pt c/o of left sided mouth pain on the upper and lower x 2 days, unable to see any inflammation, hypertensive, rates pain 5/10 as a dull constant ache, poor oral hygeine Physician History: PATIENT COMPLAINS OF LEFT UPPER DENTAL PAIN X 4-5 DAYS. DENIES FEVER, FACIAL SWELLING, CHILLS, DIFFICULTY SWALLOWING OR BREATHING. Timing/Duration: gradual onset Severity: moderate ENT Location: dental Prearrival Treatment: no prearrival treatment Modifying Factors: Improves With: other Associated Symptoms: denies symptoms, tooth pain Allergies/Adverse Reactions: aspirin Allergy (Verified 09/18/18 18:13) Home Medications: Bisoprolol/Hydrochlorothiazide [Bisoprolol-Hctz 2.5-6.25 mg Tb] 1 tab PO DAILY 04/29/18 [History] Glimepiride 1 tab PO DAILY 04/29/18 [History] Metformin HCl 500 mg [Glucophage 500 MG] 500 mg PO DAILY 04/29/18 [History ] Hx Tetanus, Diphtheria Vaccination/Date Given: No Hx Influenza Vaccination/Date Given: No Hx Pneumococcal Vaccination/Date Given: No - Review of Systems Constitutional: No Fever, No Chills Eyes: No Symptoms Ears, Nose, & Throat: No Symptoms, Loose Teeth, Other (DENTAL PAIN) Respiratory: No Symptoms, No Cough, No Dyspnea Cardiac: No Chest Pain, No Edema, No Syncope Abdominal/Gastrointestinal: Abdominal Pain, No Nausea, No Vomiting, No Diarrhea Genitourinary Symptoms: No Dysuria Musculoskeletal: No Back Pain, No Neck Pain Skin: No Rash Neurological: No Dizziness, No Focal Weakness, No Sensory Changes Psychological: No Symptoms Endocrine: No Symptoms All Other Systems: Reviewed and Negative - Past Medical History Pertinent Past Medical History: Yes Neurological History: No Pertinent History ENT History: No Pertinent History Cardiac History: Hypertension Respiratory History: No Pertinent History Endocrine Medical History: Diabetes Type II Musculoskeletal History: No Pertinent History GI Medical History: No Pertinent History History: No Pertinent History Psycho-Social History: No Pertinent History Female Reproductive Disorders: No Pertinent History Other Medical History: BLOOD DISORDER: LUAN MONIQUEEBRENDS - Past Surgical History Past Surgical History: Yes Neuro Surgical History: No Pertinent History Cardiac: No Pertinent History Respiratory: No Pertinent History Gastrointestinal: Appendectomy Genitourinary: No Pertinent History Musculoskeletal: No Pertinent History Female Surgical History: Tubal Ligation Other Surgical History: TUBAL LIGATION IN 1991 - Social History Smoking Status: Current every day smoker How long have you smoked: since 15 Exposure to second hand smoke: Yes Drug Use: none Patient Lives Alone: No - Female History Hx Now: No (tubal) - Nursing Vital Signs Nursing Vital Signs: Initial Vital Signs Temperature 98.2 F 09/18/18 18:04 Pulse Rate 90 09/18/18 18:04 Respiratory Rate 14 09/18/18 18:04 Blood Pressure 157/97 09/18/18 18:04 O2 Sat by Pulse Oximetry 100 09/18/18 18:04 Pain Scale Pain Intensity 6 - Physical Exam General Appearance: no apparent distress, alert Eye Exam: bilateral eye: normal inspection, PERRL, EOMI Ear Exam: bilateral ear: auricle normal, canal normal Nasal Exam: normal inspection Throat Exam: dental tenderness (WIDESPREAD DENTAL CARIES WITH EROSIONS INTO GINGIVA) Neck Exam: supple Cardiovascular/Respiratory Exam: chest non-tender SpO2: 100 - Progress Counseled pt/family regarding: diagnosis, need for follow-up - Departure Departure Disposition: Home Clinical Impression: WIDESPREAD DENTAL CARIES Condition: Stable Critical Care Time: No Referrals: LUISA DELACRUZ MD [Primary Care Provider] - Additional Instructions: FOLLOWUP WITH YOUR FAMILY PHYSICIAN FOR REFERRAL TO A DENTIST. ANTIBIOTIC AUGMENTIN 875MG TWICE DAILY FOR 10 DAYS. NORCO 5/325 EVERY 6 HOURS NEEDED FOR PAIN. Prescriptions: Hydrocodone/APAP 5-325 Tab^^^ [[place] 5-325 Tablet^^^] 1 tab PO Q6HPRN PRN #10 tablet MDD 6 PRN Reason: Pain Amox Tr/Potass Clav. 875 mg [Augmentin 875-125 Tablet] 875 mg PO BID #20 tablet
== END 2018-09-18 18:51 | disposition home or self-care (01) ==
LOC: ED 18:00
DX: K02.9 Dental caries, unspecified (principal); K13.79 Other lesions of oral mucosa; R13.10 Dysphagia, unspecified; E11.9 Type 2 diabetes mellitus without complications; Z79.4 Long term (current) use of insulin; I10 Essential (primary) hypertension
CPT/HCPCS: 99283

== ENCOUNTER 2018-10-18 02:51 | Emergency (ER) | payer OTHER ==
--- NOTE | 2018-10-18 03:31 | ERPHSYRPT ---
- History of Present Illness Time Seen by Provider: 10/18/18 03:15 Source: patient Exam Limitations: no limitations Patient Subjective Stated Complaint: pt c/o left flank pain starting 4 days ago that radiates to left abd/pelvis. c/o nausea no vomiting, denies diarrhea/ constipation, denies fever. Triage Nursing Assessment: pink/warm/dry, resp easy, a&ox4, steady gait, abd soft and tender, no distress noted at this time. Physician History: 48 y/o white diabetic female with h/o htn, presents with 4 day h/o left flank pain that radiates to left groin. no abd pain and no n/v/d. pt currently on her menstrual period that began 2 days ago Timing/Duration: day(s) (4) Activites at Onset: none Quality: aching Onset Location: left flank, groin (left) Severity of Pain-Max: moderate Severity of Pain-Current: mild Associated Symptoms: lower back pain (left), No abdominal pain, No diaphoresis, No nausea, No vomiting, No dysuria Allergies/Adverse Reactions: aspirin Allergy (Verified 10/18/18 02:57) Home Medications: Bisoprolol/Hydrochlorothiazide [Bisoprolol-Hctz 2.5-6.25 mg Tb] 1 tab PO HS 01/07 [History] Glimepiride 1 tab PO DAILY 04/29/18 [History] Metformin HCl 500 mg [Glucophage 500 MG] 500 mg PO DAILY 04/29/18 [History ] Hx Tetanus, Diphtheria Vaccination/Date Given: Yes Hx Influenza Vaccination/Date Given: No Hx Pneumococcal Vaccination/Date Given: No - Review of Systems Constitutional: No Symptoms Eyes: No Symptoms Ears, Nose, & Throat: No Symptoms Respiratory: No Symptoms Cardiac: No Symptoms Abdominal/Gastrointestinal: No Symptoms Genitourinary Symptoms: Flank Pain (left) Musculoskeletal: No Symptoms Skin: No Symptoms Neurological: No Symptoms Psychological: No Symptoms Endocrine: No Symptoms Hematologic/Lymphatic: No Symptoms Immunological/Allergic: No Symptoms All Other Systems: Reviewed and Negative - Past Medical History Pertinent Past Medical History: Yes Neurological History: No Pertinent History ENT History: No Pertinent History Cardiac History: Hypertension Respiratory History: No Pertinent History Endocrine Medical History: Diabetes Type II Musculoskeletal History: No Pertinent History GI Medical History: No Pertinent History History: No Pertinent History Psycho-Social History: No Pertinent History Female Reproductive Disorders: No Pertinent History Other Medical History: BLOOD DISORDER: LUAN MONIQUEEBRENDS - Past Surgical History Past Surgical History: Yes Neuro Surgical History: No Pertinent History Cardiac: No Pertinent History Respiratory: No Pertinent History Gastrointestinal: Appendectomy Genitourinary: No Pertinent History Musculoskeletal: No Pertinent History Female Surgical History: Tubal Ligation Other Surgical History: TUBAL LIGATION IN 1991 - Social History Smoking Status: Current every day smoker How long have you smoked: since 15 Exposure to second hand smoke: Yes Drug Use: none Patient Lives Alone: No - Female History Hx Last Menstrual Period: now Hx Now: No - Nursing Vital Signs Nursing Vital Signs: Initial Vital Signs Temperature 98.9 F 10/18/18 02:58 Pulse Rate 88 10/18/18 02:58 Respiratory Rate 16 10/18/18 02:58 Blood Pressure 184/102 10/18/18 02:58 O2 Sat by Pulse Oximetry 100 10/18/18 02:58 Pain Scale Pain Intensity 8 - Physical Exam General Appearance: mild distress, alert Eye Exam: PERRL/EOMI Ears, Nose, Throat Exam: normal ENT inspection, moist mucous membranes Neck Exam: normal inspection, non-tender, supple, full range of motion Respiratory Exam: normal breath sounds, lungs clear, airway intact, No chest tenderness, No respiratory distress Cardiovascular Exam: regular rate/rhythm, normal heart sounds, normal peripheral pulses Gastrointestinal/Abdomen Exam: soft, normal bowel sounds, No tenderness, No guarding, No rebound Pelvic Exam: not done Rectal Exam: not done Back Exam: normal inspection, normal range of motion, CVA tenderness (left), No vertebral tenderness Extremity Exam: normal inspection, normal range of motion, pelvis stable Neurologic Exam: alert, oriented x 3, cooperative, incident coordinator II-XII nml as tested, normal mood/affect, nml cerebellar function, nml station & gait Skin Exam: normal color, warm, dry Lymphatic Exam: No adenopathy SpO2 Interpretation: normal SpO2: 100 O2 Delivery: Room Air - Course Nursing assessment & vital signs reviewed: Yes Ordered Tests: Active Orders 24 hr Category Date Time Status ABDOMEN AND PELVIS W/0 CONTRAS [CT] Stat Exams 10/18/18 03:34 Taken CULTURE,URINE Stat Lab 10/18/18 03:16 Received HCG,QUALITATIVE URINE Stat Lab 04/28/19 03:16 Completed UA W/RFX UR CULTURE Stat Lab 10/18/18 03:16 Completed Lab/Rad Data: Laboratory Results 10/18/18 10/18/18 Range/Units 03:16 03:16 Urine Color YELLOW (YELLOW) Urine Appearance SLIGHTLY CLOUDY (CLEAR) Urine pH 6.0 (5-6) Ur Specific Fowler 1.023 (1.005-1.025) Urine Protein 30 (Negative) Urine Ketones NEGATIVE (NEGATIVE) Urine Blood SMALL (0-5) Kareem/ul Urine Nitrite NEGATIVE (NEGATIVE) Urine Bilirubin NEGATIVE (NEGATIVE) Urine Urobilinogen 2 (0-1) mg/dL Ur Leukocyte Esterase TRACE (NEGATIVE) Urine WBC (Auto) 3-5 (0-5) /HPF Urine RBC (Auto) 11-15 (0-2) /HPF U Epithel Cells (Auto) RARE (FEW) /HPF Urine Bacteria (Auto) NONE (NEGATIVE) /HPF Urine Mucus (Auto) SLIGHT (NEGATIVE) /HPF Urine Culture Reflexed YES (NO) Urine Glucose NEGATIVE (NEGATIVE) mg/dL Urine HCG, Qual NEGATIVE (Negative) - Progress Progress: unchanged Air Movement: good Progress Note: 10/18/18 04:58 ct abd/pelvis-no acute intraabd process Blood Culture(s) Obtained: No Antibiotics given: No Counseled pt/family regarding: lab results, diagnosis, need for follow-up, rad results - Departure Departure Disposition: Home Clinical Impression: Left flank pain Condition: Stable Critical Care Time: No Referrals: LUISA DELACRUZ MD [Primary Care Provider] - Additional Instructions: drink plenty of fluids. use tylenol for pain. follow up with primary doctor for persistent symptoms
[2018-10-18 03:41] LABS: Appearance SLIGHTLY CLOUDY (CLEAR); Bilirubin NEGATIVE (NEGATIVE); Blood SMALL Ery/ul (0-5); Epithelial Cells RARE /HPF (FEW); Glucose NEGATIVE (NEGATIVE); Ketones NEGATIVE (NEGATIVE); Leukocyte Esterase TRACE (NEGATIVE); Mucus SLIGHT /HPF (NEGATIVE); Nitrite NEGATIVE (NEGATIVE); Protein,Urine Dip 30 (Negative); Specific Gravity 1.023 (1.005-1.025); Urobilinogen 2 mg/dL (0-1)
[2018-10-18] MEDS ORDERED: NORCO 5/325 MG PO ONE (04:59)
[2018-10-18] MEDS ORDERED: NORCO 5/325 MG ONE (05:11)
[2018-10-18 05:12] VITALS: BP 133/90; PULSE 79; O2SAT 95
--- NOTE | 2018-10-18 08:10 | XRAY ---
Indication: Left flank pain. Multiple contiguous axial images obtained through the abdomen and pelvis without contrast as ordered. Comparison: July 04, 2017. Lung bases remain clear. Heart is not enlarged. Noncontrasted stomach and bowel loops appear nonobstructed. And appendectomy. Again mild diffuse scattered colonic fecal debris, more than before. No free fluid/air. Stable fatty liver. Spleen remains enlarged today measuring 13 cm. Prominent uterus with endometrial cavity thickening, possible menses. A few prominent left ovary follicular cyst, largest 1.7 cm. Remaining liver, gallbladder, pancreas, spleen, adrenal glands, kidneys, ureters, and bladder appear unremarkable for noncontrast exam. Again mild aortoiliac calcifications without AAA. Osseous structures intact. No ventral or inguinal hernias. Impression: 1. Again mild fecal stasis without obstruction. 2. Prominent uterus with endometrial cavity thickening and prominent left ovary cysts. Correlate with patient's menstrual cycle. Pelvic sonogram may yield further information if clinically warranted. 3. Again incidental fatty liver and splenomegaly. 4. Remaining CT abdomen/pelvis without contrast exam is negative. Comment: Preliminary interpretation was made by C. No discrepancy. CTDI 22.76
== END 2018-10-18 05:25 | disposition home or self-care (01) ==
LOC: ED 02:51
DX: R10.9 Unspecified abdominal pain (principal); I10 Essential (primary) hypertension; E11.9 Type 2 diabetes mellitus without complications
CPT/HCPCS: 74176; 81001; 84703; 87086; 99284; A9270-GY

== ENCOUNTER 2018-10-27 10:36 | Emergency (ER) | payer MEDICAID, OTHER ==
[2018-10-27] MEDS ORDERED: CLEOCIN 150 MG CAPSULE PO ONE (10:53)
[2018-10-27] MEDS ORDERED: XYLOCAINE HCl Viscous MM PRN (10:53)
--- NOTE | 2018-10-27 10:59 | ERPHSYRPT ---
- History of Present Illness Time Seen by Provider: 10/27/18 10:55 Source: patient Patient Subjective Stated Complaint: left side of face swollen when she woke up this am. hx dental abscesses. states she has no dentist because no will take her teeth out due to blood disorder. Triage Nursing Assessment: left side of face very swollen. upper lip swollen. ambulated to room per self. skin w/d, face flushed. Physician History: mild to mod throbbing ache of the upper left dental margin for 3 days, no injury , no fever, speech fluent Allergies/Adverse Reactions: aspirin Allergy (Verified 10/27/18 10:51) Home Medications: Bisoprolol/Hydrochlorothiazide [Bisoprolol-Hctz 2.5-6.25 mg Tb] 1 tab PO HS 01/07 [History] Glimepiride 1 tab PO DAILY 04/29/18 [History] Metformin HCl 500 mg [Glucophage 500 MG] 500 mg PO DAILY 04/29/18 [History ] Hx Tetanus, Diphtheria Vaccination/Date Given: No Hx Influenza Vaccination/Date Given: No Hx Pneumococcal Vaccination/Date Given: No Immunizations Up to Date: No - Review of Systems Constitutional: No Fever Eyes: No Vision Changes Ears, Nose, & Throat: No Epistaxis, No Throat Swelling Respiratory: No Dyspnea Skin: No Rash Neurological: No Dizziness - Past Medical History Pertinent Past Medical History: Yes Neurological History: No Pertinent History ENT History: No Pertinent History Cardiac History: Hypertension Respiratory History: No Pertinent History Endocrine Medical History: Diabetes Type II Musculoskeletal History: No Pertinent History GI Medical History: No Pertinent History History: No Pertinent History Psycho-Social History: No Pertinent History Female Reproductive Disorders: No Pertinent History Other Medical History: BLOOD DISORDER: LUAN WILDEBRENDS - Past Surgical History Past Surgical History: Yes Neuro Surgical History: No Pertinent History Cardiac: No Pertinent History Respiratory: No Pertinent History Gastrointestinal: Appendectomy Genitourinary: No Pertinent History Musculoskeletal: No Pertinent History Female Surgical History: Tubal Ligation Other Surgical History: TUBAL LIGATION IN 1991 - Social History Smoking Status: Current every day smoker How long have you smoked: since 15 Exposure to second hand smoke: Yes Drug Use: none Patient Lives Alone: No - Female History Hx Last Menstrual Period: one week ago Hx Now: No - Nursing Vital Signs Nursing Vital Signs: Initial Vital Signs Temperature 99 F 10/27/18 10:43 Pulse Rate 97 H 10/27/18 10:43 Respiratory Rate 16 10/27/18 10:43 Blood Pressure 157/88 10/27/18 10:43 O2 Sat by Pulse Oximetry 100 10/27/18 10:43 Pain Scale Pain Intensity 8 - Physical Exam General Appearance: no apparent distress Eye Exam: eyes nml inspection Ears, Nose, Throat Exam: other (tender upper left dental margin, no fluc mass, no trismus) Neck Exam: non-tender, supple Respiratory Exam: No respiratory distress Neurologic Exam: alert, oriented x 3, cooperative Skin Exam: normal color, warm, dry SpO2 Interpretation: normal SpO2: 100 - Course Nursing assessment & vital signs reviewed: Yes Ordered Tests: Medication Summary Generic Name Dose Route Start Last Admin Trade Name Freq PRN Reason Stop Dose Admin Lidocaine HCl 20 ml 10/27/18 10:53 Xylocaine Hcl Viscous * MM 11/26/18 10:52 PRN PRN PAIN Discontinued Medications Generic Name Dose Route Start Last Admin Trade Name Freq PRN Reason Stop Dose Admin Clindamycin HCl 300 mg 10/27/18 10:53 Cleocin 150 Mg Capsule PO 10/27/18 10:54 STAT ONE - Progress Progress: unchanged Progress Note: 10/27/18 10:57 see a dentist, cleocin and viscus lidocaine, return if worse - Departure Departure Disposition: Home Clinical Impression: Pain, dental Condition: Stable Critical Care Time: No Referrals: LUISA DELACRUZ MD [Primary Care Provider] - Prescriptions: Clindamycin HCl [Cleocin HCl] 150 mg PO BIDWMEALS 10 Days #20 capsule
[2018-10-27] MEDS ORDERED: XYLOCAINE HCl Viscous ONE (11:05)
[2018-10-27] MEDS ORDERED: CLEOCIN 150 MG CAPSULE ONE ×2 (11:05→11:08)
[2018-10-27 12:27] VITALS: BP 154/88; PULSE 90; O2SAT 98
== END 2018-10-27 12:34 | disposition home or self-care (01) ==
LOC: ED 10:36
DX: K08.89 Other specified disorders of teeth and supporting structures (principal); E11.9 Type 2 diabetes mellitus without complications; Z79.4 Long term (current) use of insulin
CPT/HCPCS: 99283; A9270-GY

== ENCOUNTER 2018-12-10 21:34 | Emergency (ER) | payer MEDICAID ==
--- NOTE | 2018-12-10 22:17 | ERPHSYRPT ---
- History of Present Illness Time Seen by Provider: 12/10/18 22:01 Source: patient Exam Limitations: no limitations Patient Subjective Stated Complaint: Pt states on Friday she started having pain in her left arm, that starts just above her elbow and goes down into her hand. Fingers also feel tingly. Pt also states she has been having pain in her left knee. Hurts when she bends down or stands up Triage Nursing Assessment: Pt a & o x3. Ambulated to dept and onto bed. Respirations easy and non-labored. No obvious injury to left arm or knee. Pt able to move arm up and down and out to the side. Pt states she has more pain with movement. Knee does not appear swollen Physician History: 48-year-old white female with history of diabetes type 2, high blood pressure, von Willebrand's. Patient arrives with complaint of pain in her left arm radiating to her left left hand and wrist symptoms for 4 days she states she's been having some paresthesia in the left fingers. Also had some pain in her left knee. Chest no shortness of breath no chest pain no nausea no vomiting. Past medical history includes high blood pressure, diabetes type 2, von Willebrand's, left ovarian cyst. Past surgical history includes appendectomy and tubal ligation. Timing/Duration: day(s) (4 days) Severity: moderate Modifying Factors: Improves With: nothing Associated Symptoms: No nausea, No vomiting, No abdominal pain, No shortness of breath, No heartburn, No diaphoresis, No cough, No chills, No chest pain, No fever, No headaches, No loss of appetite, No malaise, No rash, No syncope, No seizure Allergies/Adverse Reactions: aspirin Allergy (Verified 10/27/18 10:51) Home Medications: Bisoprolol/Hydrochlorothiazide [Bisoprolol-Hctz 2.5-6.25 mg Tb] 1 tab PO HS 01/07 [History] Glimepiride 1 mg PO DAILY 04/29/18 [History] Metformin HCl 500 mg [Glucophage 500 MG] 500 mg PO DAILY 04/29/18 [History ] Norethindrone 1 tab PO HS 12/10/18 [History] Hx Tetanus, Diphtheria Vaccination/Date Given: No Hx Influenza Vaccination/Date Given: No Hx Pneumococcal Vaccination/Date Given: No - Review of Systems Constitutional: No Fever, No Chills Eyes: No Symptoms Ears, Nose, & Throat: No Symptoms Respiratory: No Cough, No Dyspnea Cardiac: No Chest Pain, No Edema, No Syncope Abdominal/Gastrointestinal: No Abdominal Pain, No Nausea, No Vomiting, No Diarrhea Genitourinary Symptoms: No Dysuria Musculoskeletal: Other (left arm and hand pain. pain left knee with movement) Skin: No Rash Neurological: Parasthesia (intermittent paresthesias to fingersleft hand) Psychological: No Symptoms Endocrine: No Symptoms All Other Systems: Reviewed and Negative - Past Medical History Pertinent Past Medical History: Yes Neurological History: No Pertinent History ENT History: No Pertinent History Cardiac History: Hypertension Respiratory History: No Pertinent History Endocrine Medical History: Diabetes Type II Musculoskeletal History: No Pertinent History GI Medical History: No Pertinent History History: No Pertinent History Psycho-Social History: No Pertinent History Female Reproductive Disorders: Other Other Medical History: BLOOD DISORDER: LUAN WILDEBRENDS. Left ovarian cyst - Past Surgical History Past Surgical History: Yes Neuro Surgical History: No Pertinent History Cardiac: No Pertinent History Respiratory: No Pertinent History Gastrointestinal: Appendectomy Genitourinary: No Pertinent History Musculoskeletal: No Pertinent History Female Surgical History: Tubal Ligation Other Surgical History: TUBAL LIGATION IN 1991 - Social History Smoking Status: Current every day smoker How long have you smoked: since Exposure to second hand smoke: Yes Drug Use: none Patient Lives Alone: No - Female History Hx Last Menstrual Period: currently on period Hx Now: No - Nursing Vital Signs Nursing Vital Signs: Initial Vital Signs Temperature 97.7 F 12/10/18 21:43 Pulse Rate 90 12/10/18 21:43 Respiratory Rate 18 12/10/18 21:43 Blood Pressure 196/99 12/10/18 21:43 O2 Sat by Pulse Oximetry 99 12/10/18 21:43 Pain Scale Pain Intensity 5 - Physical Exam General Appearance: no apparent distress, alert Eye Exam: PERRL/EOMI, eyes nml inspection Ears, Nose, Throat Exam: normal ENT inspection, TMs normal, pharynx normal, moist mucous membranes Neck Exam: normal inspection, non-tender, supple, full range of motion Respiratory Exam: normal breath sounds, lungs clear, No respiratory distress Cardiovascular Exam: regular rate/rhythm, normal heart sounds, normal peripheral pulses, capillary refill <2 sec Back Exam: normal inspection, normal range of motion, No CVA tenderness, No vertebral tenderness Extremity Exam: other (full range of motion all extremities left knee stable to exam no tenderness good For a refill all extremities pulses equal two over four upper and lower good capillary refill all fingers Tinel's positive left wrist Phalen's positive left wrist.) Neurologic Exam: alert, oriented x 3, cooperative, normal mood/affect, nml cerebellar function, nml station & gait, sensation nml, No motor deficits Skin Exam: normal color, warm, dry, No rash Lymphatic Exam: No adenopathy SpO2 Interpretation: normal (99%) SpO2: 99 - Course Nursing assessment & vital signs reviewed: Yes EKG Interpreted by Me: RATE (72 bpm), Sinus Rhythm, NORMAL AXIS, Other (EKG: Sinus rhythm, 72 beats per minute, normal axis, T-wave depression in 1 and L., no old EKG for comparison) - Radiology Exams Left Wrist X-ray Interpretation: Interpreted by me, Negative, No Fracture, No Subluxation Ordered Tests: Active Orders 24 hr Category Date Time Status EKG-ER Only STAT Care 12/10/18 22:11 Active WRIST (MIN 3 VIEWS) Stat Exams 12/10/18 22:10 Taken CBC W DIFF Stat Lab 12/10/18 22:23 Completed CMP Stat Lab 12/10/18 22:23 Completed TROPONIN Q3H Lab 12/10/18 22:23 Completed TROPONIN Q3H Lab 12/11/18 01:15 Ordered TROPONIN Q3H Lab 12/11/18 04:15 Ordered TROPONIN Q3H Lab 12/11/18 07:15 Ordered TROPONIN Q3H Lab 12/11/18 10:15 Ordered Lab/Rad Data: Laboratory Result Diagrams 12/10/18 22:23 12/10/18 22:23 Laboratory Results 12/10/18 12/10/18 12/10/18 Range/Units 22:23 22:23 22:23 WBC 5.4 (4.0-10.5) K/mm3 RBC 4.60 (4.1-5.4) M/mm3 Hgb 13.0 (12.0-16.0) gm/dl Hct 39.0 (35-47) % MCV 84.8 (78-100) fl MCH 28.3 (26-32) pg MCHC 33.3 (32-36) g/dl RDW 15.9 H (11.5-14.0) % Plt Count 226 (150-450) K/mm3 MPV 10.9 H (6-9.5) fl Gran % 55.0 (36.0-66.0) % Eos # (Auto) 0.02 (0-0.5) Absolute Lymphs (auto) 1.98 (1.0-4.6) Absolute Monos (auto) 0.43 (0.0-1.3) Lymphocytes % 36.5 (24.0-44.0) % Monocytes % 7.9 (0.0-12.0) % Eosinophils % 0.4 (0.00-5.0) % Basophils % 0.2 (0.0-0.4) % Absolute Granulocytes 2.99 (1.4-6.9) Basophils # 0.01 (0-0.4) Sodium 139 (137-145) mmol/L Potassium 3.5 (3.5-5.1) mmol/L Chloride 100 (98-107) mmol/L Carbon Dioxide 27 (22-30) mmol/L Anion Gap 15.5 H (5-15) MEQ/L BUN 9 (7-17) mg/dL Creatinine 0.62 (0.52-1.04) mg/dL Estimated GFR > 60.0 ML/MIN Glucose 118 H (74-106) mg/dL Calcium 10.0 (8.4-10.2) mg/dL Total Bilirubin 0.60 (0.2-1.3) mg/dL AST 16 (14-36) U/L ALT 13 (0-35) U/L Alkaline Phosphatase 60 (38-126) U/L Troponin I < 0.012 (0.000-0.034) ng/mL Serum Total Protein 7.6 (6.3-8.2) g/dL Albumin 4.3 (3.5-5.0) g/dL - Progress Progress: improved Progress Note: 12/10/18 22:15 48-year-old white female with history of high blood pressure, von Willebrand's, diabetes type 2, left ovarian cyst. Patient arrives with complaint of pain in her left forearm radiating to her hand symptoms for 4 days denies any injury. Patient with positive Phalen's and positive Tinel's on the left side. Radial and Amado pulses are intact and symmetrical two over four. Patient with full range of motion to all extremities Patient's left knee with normal examination. Will go ahead and obtain x-ray left wrist. Because of the patient's history of diabetes and von Willebrand's will obtain CBC CMP patient is worried about heart problems will go ahead and obtain a troponin and EKG. Expect the patient will have splinting of her left wrist avoiding nonsteroidals because of patient's history of von Willebrand's. .. 12/10/18 23:13 Patient's labs, x-ray left wrist, EKG essentially normal. Will go ahead and discharge patient with the wristlet on the left wrist. Will write for limited use of left hand at work for 48 hours patient to use her left wristlet for one week and followup with her family . - Departure Departure Disposition: Home Clinical Impression: Left arm pain, paresthesias left fingers Carpal tunnel syndrome Qualifiers: Laterality: left Qualified Code(s): G56.02 - Carpal tunnel syndrome, left upper limb Condition: Fair Critical Care Time: No Referrals: LUISA DELACRUZ MD [Primary Care Provider] - Additional Instructions: Return home. wear wristlet left wrist x 1 week. Tylenol every 4 hours as needed for pain. Limited use left hand 48 hours. Followup with your family Dr. perales for acute distress or symptoms or for any problems. .
[2018-12-10 22:26] LABS: BASOPHIL % 0.2 % (0.0-0.4); Basophil (Absolute #) 0.01 (0-0.4); Eosinophil % 0.4 % (0.00-5.0); Eosinophil (Absolute #) 0.02 (0-0.5); Granulocyte Absolute (ANC) 2.99 (1.4-6.9); Lymphocyte (Absolute #) 1.98 (1.0-4.6); Lymphocytes % 36.5 % (24.0-44.0); Mean Cell Volume 84.8 fl (78-100); Mean Corpuscular Hemoglobin 28.3 pg (26-32); Mean Corpuscular Hgb Concent. 33.3 g/dl (32-36); Mean Platelet Volume 10.9 fl (6-9.5); Monocytes % 7.9 % (0.0-12.0); Platelet Count 226 K/mm3 (150-450); Red Cell Distribution Width 15.9 % (11.5-14.0); White Blood Count 5.4 K/mm3 (4.0-10.5)
[2018-12-10 22:27] VITALS: PULSE 75
[2018-12-10 22:34] VITALS: O2SAT 99
[2018-12-10 22:38] LABS: ALBUMIN 4.3 g/dL (3.5-5.0); ALKALINE PHOSPHATASE 60 U/L (38-126); ANION GAP 15.5 MEQ/L (5-15); BLOOD UREA NITROGEN 9 mg/dL (7-17); CHLORIDE 100 mmol/L (98-107); Carbon Dioxide 27 mmol/L (22-30); Creatinine 1 0.62 mg/dL (0.52-1.04); Glucose 118 mg/dL (74-106); Potassium 3.5 mmol/L (3.5-5.1); SGOT/AST 16 U/L (14-36); SGPT/ALT 13 U/L (0-35); SODIUM 139 mmol/L (137-145); Total Protein 7.6 g/dL (6.3-8.2)
[2018-12-10 23:27] VITALS: BP 137/79
--- NOTE | 2018-12-11 08:46 | XRAY ---
Indication: Pain and numbness. No known injury. Comparison: None 3 views of the left wrist demonstrates mild 1st metacarpal multangular degenerative changes and mild radiocarpal joint space narrowing with punctate lateral heterotopic ossification. No other bony, articular, or soft tissue abnormalities.
== END 2018-12-10 23:28 | disposition home or self-care (01) ==
LOC: ED 21:34
DX: M79.602 Pain in left arm (principal); R20.2 Paresthesia of skin; G56.02 Carpal tunnel syndrome, left upper limb
CPT/HCPCS: 36415; 73110; 80053; 84484; 85025; 93005; 99284; L3908

== ENCOUNTER 2019-02-12 14:27 | Emergency (ER) | payer MEDICAID | END 2019-02-12 21:25 | disposition home or self-care (01) | LOC: ED 14:27 ==

== ENCOUNTER 2019-08-03 12:00 | Emergency (ER) | payer SELFPAY ==
--- NOTE | 2019-08-03 12:15 | ERPHSYRPT ---
- History of Present Illness Source: patient Exam Limitations: no limitations Timing/Duration: other (2 weeks) Associated Symptoms: cough, No nausea, No vomiting, No abdominal pain, No shortness of breath, No fever, No rash Hx Tetanus, Diphtheria Vaccination/Date Given: No Hx Influenza Vaccination/Date Given: No Hx Pneumococcal Vaccination/Date Given: No - History of Present Illness Time Seen by Provider: 08/03/19 12:14 Physician History: She is a 49-year-old female with a past medical history significant for diabetes mellitus in addition to ongoing cigarette smoking in which she smokes a half a pack a day presents with a chief complaint of cough and cold symptoms that started 2 weeks ago. She endorsed having clear rhinorrhea, postnasal drip in addition to a sore throat, sinus congestion and a cough in which she is coughing up "white phlegm" for the past couple weeks. She reportedly has been taking Mucinex twice a day to treat her symptoms over the last few days but to no avail in addition to [id number] cough medicine. She denies fever, chills, shortness of breath, nausea, vomiting, diarrhea, chest pain and abdominal pain. She endorsed having recent sick contacts, specifically grandchildren with a diagnosis of "viral pharyngitis" in addition to viral URI symptoms over the last 1 to 2 weeks. (ALISA HERCULES) Allergies/Adverse Reactions: aspirin Allergy (Verified 02/12/19 14:44) Home Medications: Bisoprolol/Hydrochlorothiazide [Bisoprolol-Hctz 2.5-6.25 mg Tb] 1 tab PO HS 01/07 [History] Glimepiride 1 mg PO DAILY 04/29/18 [History] Metformin HCl 500 mg [Glucophage 500 MG] 500 mg PO DAILY 04/29/18 [History ] - Review of Systems Constitutional: No Fever, No Chills Eyes: No Symptoms Ears, Nose, & Throat: Nose Congestion, Throat Pain, No Ear Pain, No Painful Swallowing, No Stridor Respiratory: Cough, No Dyspnea, No Dyspnea on Exertion (SILVA), No Stridor, No Wheezing Abdominal/Gastrointestinal: No Abdominal Pain, No Nausea, No Vomiting, No Diarrhea, No Constipation Genitourinary Symptoms: No Dysuria, No Frequency, No Hematuria Musculoskeletal: No Symptoms Skin: No Symptoms Neurological: No Symptoms Psychological: No Symptoms Endocrine: No Symptoms Hematologic/Lymphatic: No Symptoms Immunological/Allergic: No Symptoms - Past Medical History Pertinent Past Medical History: Yes Neurological History: No Pertinent History ENT History: No Pertinent History Cardiac History: Hypertension Respiratory History: No Pertinent History Endocrine Medical History: Diabetes Type II Musculoskeletal History: No Pertinent History GI Medical History: No Pertinent History History: No Pertinent History Psycho-Social History: No Pertinent History Female Reproductive Disorders: Other Other Medical History: BLOOD DISORDER: LUAN WILDEBRENDS. Left ovarian cyst - Past Surgical History Past Surgical History: Yes Neuro Surgical History: No Pertinent History Cardiac: No Pertinent History Respiratory: No Pertinent History Gastrointestinal: Appendectomy Genitourinary: No Pertinent History Musculoskeletal: No Pertinent History Female Surgical History: Tubal Ligation Other Surgical History: TUBAL LIGATION IN 1991 - Social History Smoking Status: Current every day smoker How long have you smoked: since 15 Exposure to second hand smoke: Yes Drug Use: none Patient Lives Alone: No - Nursing Vital Signs Nursing Vital Signs: Initial Vital Signs Temperature 98.5 F 08/03/19 12:21 Pulse Rate 90 08/03/19 12:21 Respiratory Rate 08/03/19 12:21 Blood Pressure 179/97 08/03/19 12:21 O2 Sat by Pulse Oximetry 98 08/03/19 12:21 Pain Scale Pain Intensity 0 - Course Nursing assessment & vital signs reviewed: Yes - Radiology Exams Chest X-ray Interpretation: Reviewed by me, Negative Ordered Tests: Active Orders 24 hr Category Date Time Status CHEST 2 VIEWS (PA AND LAT) Stat Exams 08/03/19 12:20 Completed - Progress Progress: unchanged Counseled pt/family regarding: diagnosis, need for follow-up, rad results, smoking cessation - Departure Departure Disposition: Home Critical Care Time: No - Departure Clinical Impression: Upper respiratory infection, viral, Tobacco abuse Condition: Stable Referrals: LUISA DELACRUZ MD [Primary Care Provider] - Forms: Work/School Release Form Prescriptions: Benzonatate [Tessalon [place]] 100 mg PO [id number] PRN #30 capsule PRN Reason: Cough Albuterol 8 gm Mdi Hfa [Ventolin Hfa MDI] 90 mcg IH Q4H PRN #1 [id number] PRN Reason: Shortness Of Breath Oxymetazoline HCl Nasal [Afrin Nasal [place]] 15 ml NS BID 3 Days #1 bottle Sodium Chloride [Saline Nasal [place]] 30 ml NS BID PRN #1 spray
[2019-08-03 12:30] VITALS: O2SAT 98
--- NOTE | 2019-08-03 13:05 | XRAY ---
Indication: Cough 2 weeks. Comparison: None PA/lateral chest demonstrates normal heart and lungs. Bony thorax intact with mild degenerative changes.
[2019-08-03 13:40] VITALS: BP 128/70; PULSE 80
== END 2019-08-03 13:39 | disposition home or self-care (01) ==
LOC: ED 12:00
DX: J06.9 Acute upper respiratory infection, unspecified (principal); Z72.0 Tobacco use
CPT/HCPCS: 71046; 99284

== ENCOUNTER 2019-09-06 13:32 | Emergency (ER) | payer OTHER ==
[2019-09-06] MEDS ORDERED: solu-MEDROL 125 MG IV ONE (13:59)
[2019-09-06] MEDS ORDERED: HYDROCODONE-ACETAMIN 2.5-108/5 ML SOLUTION ONE (14:09)
[2019-09-06] MEDS ORDERED: solu-MEDROL 125 MG ONE (14:09)
[2019-09-06] MEDS ORDERED: HYDROCODONE-ACETAMIN 2.5-108/5 ML SOLUTION PO STA (14:09)
--- NOTE | 2019-09-06 14:09 | ERPHSYRPT ---
- History of Present Illness Time Seen by Provider: 09/06/19 13:55 Source: patient Exam Limitations: no limitations Patient Subjective Stated Complaint: Pt states "I have had a cough for over a month now and I had a chest x ray a couple of weeks ago and my doctor gave me cough medicine to take but nothing is helping. I went to work and they sent me home and said I need to go get checked out." Triage Nursing Assessment: PT presented alert and oriented X 3, skin wpd pt ambulates with an upright steady gait, able to speak in clear full sentences pt in no apparent respiratory distress. Physician History: This is a 49-year-old female who states that she is allergic only to aspirin and presents with 1 month history of intermittent coughing. Patient was seen by her primary care physician approximately 2 weeks ago and underwent a chest x- ray. This chest x-ray was negative for pneumonia per the patient's report. Patient was given a prescription for a cough medicine and it has not helped. Her symptoms have persisted over the last 2 weeks. Patient was at work today and was told to go to the emergency room to be evaluated. Patient denies fever she denies chest pain she denies abdominal pain she denies nausea vomiting or diarrhea. Patient does not have shortness of breath unless she is coughing. Patient's coughing has kept her awake at night. He has no known exposures to individuals with diagnosis of any type of flu. Patient is aware that we do not test for the coronavirus at this time. Timing/Duration: week(s) (4) Cough Quality/Degree: moderate, dry cough Possible Cause: occasional episodes Modifying Factors: Improves With: nothing Associated Symptoms: cough, No fever, No chills, No chest pain/soreness, No dizziness, No headache, No muscle aches, No nasal congestion, No nasal drainage , No shortness of breath, No sinus infection, No sore throat, No wheezing Allergies/Adverse Reactions: aspirin Allergy (Verified 02/12/19 14:44) Home Medications: Bisoprolol/Hydrochlorothiazide [Bisoprolol-Hctz 2.5-6.25 mg Tb] 1 tab PO HS 01/07 [History] Glimepiride 1 mg PO DAILY 04/29/18 [History] Metformin HCl 500 mg [Glucophage 500 MG] 500 mg PO DAILY 04/29/18 [History ] Guaifenesin/Codeine Phos [Guaiatussin AC Liquid] 10 ml PO QID 09/06/19 [History] Hx Tetanus, Diphtheria Vaccination/Date Given: No Hx Influenza Vaccination/Date Given: No Hx Pneumococcal Vaccination/Date Given: No Immunizations Up to Date: Yes - Review of Systems Constitutional: No Symptoms Eyes: No Symptoms Ears, Nose, & Throat: No Symptoms Respiratory: Cough Cardiac: No Symptoms Abdominal/Gastrointestinal: No Symptoms Genitourinary Symptoms: No Symptoms Musculoskeletal: No Symptoms Skin: No Symptoms Neurological: No Symptoms Psychological: No Symptoms Endocrine: No Symptoms Hematologic/Lymphatic: No Symptoms Immunological/Allergic: No Symptoms All Other Systems: Reviewed and Negative - Past Medical History Pertinent Past Medical History: Yes Neurological History: No Pertinent History ENT History: No Pertinent History Cardiac History: Hypertension Respiratory History: No Pertinent History Endocrine Medical History: Diabetes Type II Musculoskeletal History: No Pertinent History GI Medical History: No Pertinent History History: No Pertinent History Psycho-Social History: No Pertinent History Female Reproductive Disorders: Other Other Medical History: BLOOD DISORDER: LUAN WILDEBRENDS. Left ovarian cyst - Past Surgical History Past Surgical History: Yes Neuro Surgical History: No Pertinent History Cardiac: No Pertinent History Respiratory: No Pertinent History Gastrointestinal: Appendectomy Genitourinary: No Pertinent History Musculoskeletal: No Pertinent History Female Surgical History: Tubal Ligation Other Surgical History: TUBAL LIGATION IN 1991 - Social History Smoking Status: Current every day smoker How long have you smoked: years Exposure to second hand smoke: Yes Drug Use: none Patient Lives Alone: No - Female History Hx Last Menstrual Period: menopause Hx Now: No - Nursing Vital Signs Nursing Vital Signs: Initial Vital Signs Temperature 98.4 F 09/06/19 13:39 Pulse Rate 100 H 09/06/19 13:39 Respiratory Rate 22 09/06/19 13:39 Blood Pressure 225/108 09/06/19 13:39 O2 Sat by Pulse Oximetry 99 09/06/19 13:39 Pain Scale Pain Intensity 0 - Physical Exam General Appearance: no apparent distress, alert, anxiety Eye Exam: PERRL/EOMI, eyes nml inspection Ears, Nose, Throat Exam: normal ENT inspection, moist mucous membranes Neck Exam: normal inspection, non-tender, supple, full range of motion Respiratory Exam: normal breath sounds, lungs clear, airway intact, No chest tenderness, No respiratory distress, No accessory muscle use, No rhonchi, No wheezing, No stridor Cardiovascular Exam: regular rate/rhythm, normal heart sounds, normal peripheral pulses Gastrointestinal/Abdomen Exam: soft, normal bowel sounds, No tenderness Pelvic Exam: not done Rectal Exam: not done Back Exam: normal inspection, normal range of motion, No CVA tenderness, No vertebral tenderness Extremity Exam: normal inspection, normal range of motion, pelvis stable Neurologic Exam: alert, oriented x 3, cooperative, 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 nml as tested, normal mood/affect, nml cerebellar function, nml station & gait Skin Exam: normal color, warm, dry Lymphatic Exam: No adenopathy SpO2 Interpretation: normal SpO2: 99 O2 Delivery: Room Air - Course Nursing assessment & vital signs reviewed: Yes Ordered Tests: Active Orders 24 hr Category Date Time Status IV Insertion STAT Care 09/06/19 13:58 Active Pulse Oximetry (ED) STAT Care 09/06/19 13:58 Active CHEST 1 VIEW (PORTABLE) Stat Exams 09/06/19 13:59 Completed BLOOD CULTURE Stat Lab 09/06/19 14:25 Received BMP Stat Lab 09/06/19 14:20 Completed CBC W DIFF Stat Lab 09/06/19 14:20 Completed [place] Screen Stat Lab 09/06/19 14:20 Completed Medication Summary Discontinued Medications Generic Name Dose Route Start Last Admin Trade Name Tabitha PRN Reason Stop Dose Admin Hydrocodone Bitart/Acetaminophen 10 ml 09/06/19 14:09 09/06/19 14:11 Hydrocodone-Acetamin 2.5-108/5 Ml Solution PO 09/06/19 14:10 10 ml STAT STA Administration Hydrocodone Bitart/Acetaminophen Confirm 09/06/19 14:09 Hydrocodone-Acetamin 2.5-108/5 Ml Solution Administered 09/06/19 14:10 Dose 10 ml .ROUTE .STK-MED ONE Methylprednisolone Sodium Succinate 125 mg 09/06/19 13:59 09/06/19 14:11 Solu-Medrol 125 Mg IV 09/06/19 14:00 125 mg STAT ONE Administration Methylprednisolone Sodium Succinate Confirm 09/06/19 14:09 Solu-Medrol 125 Mg Administered 09/06/19 14:10 Dose 125 mg .ROUTE .STK-MED ONE Potassium Chloride 20 meq 09/06/19 15:19 09/06/19 15:28 Klor Con 10 Meq PO 09/06/19 15:20 20 meq STAT ONE Administration Potassium Chloride Confirm 09/06/19 15:27 Klor Con 10 Meq Administered 09/06/19 15:28 Dose 20 meq PO .STK-MED ONE Lab/Rad Data: Laboratory Result Diagrams 09/06/19 14:20 09/06/19 14:20 Laboratory Results 09/06/19 09/06/19 09/06/19 Range/Units 14:25 14:20 14:20 WBC (4.0-10.5) K/mm3 RBC (4.1-5.4) M/mm3 Hgb (12.0-16.0) gm/dl Hct (35-47) % MCV (78-100) fl MCH (26-32) pg MCHC (32-36) g/dl RDW (11.5-14.0) % Plt Count (150-450) K/mm3 MPV (7.5-11.0) fl Gran % (36.0-66.0) % Eos # (Auto) (0-0.5) Absolute Lymphs (auto) (1.0-4.6) Absolute Monos (auto) (0.0-1.3) Lymphocytes % (24.0-44.0) % Monocytes % (0.0-12.0) % Eosinophils % (0.00-5.0) % Basophils % (0.0-0.4) % Absolute Granulocytes (1.4-6.9) Basophils # (0-0.4) Sodium 141 (137-145) mmol/L Potassium 3.0 L (3.5-5.1) mmol/L Chloride 98 (98-107) mmol/L Carbon Dioxide 32 H (22-30) mmol/L Anion Gap 14.0 (5-15) MEQ/L BUN 10 (7-17) mg/dL Creatinine 0.61 (0.52-1.04) mg/dL Estimated GFR > 60.0 ML/MIN Glucose 148 H (74-106) mg/dL Calcium 9.7 (8.4-10.2) mg/dL Monoscreen NEGATIVE (Negative) Influenza Type A Ag NEGATIVE (NEGATIVE) Influenza Type B Ag NEGATIVE (NEGATIVE) RSV (PCR) NEGATIVE (Negative) Group A Strep Antibody NOT DETECTED (NEGATIVE) 09/06/19 Range/Units 14:20 WBC 6.6 (4.0-10.5) K/mm3 RBC 4.70 (4.1-5.4) M/mm3 Hgb 13.6 (12.0-16.0) gm/dl Hct 41.5 (35-47) % MCV 88.3 (78-100) fl MCH 28.9 (26-32) pg MCHC 32.8 (32-36) g/dl RDW 16.2 H (11.5-14.0) % Plt Count 202 (150-450) K/mm3 MPV 11.6 H (7.5-11.0) fl Gran % 61.0 (36.0-66.0) % Eos # (Auto) 0.02 (0-0.5) Absolute Lymphs (auto) 1.94 (1.0-4.6) Absolute Monos (auto) 0.59 (0.0-1.3) Lymphocytes % 29.5 (24.0-44.0) % Monocytes % 9.0 (0.0-12.0) % Eosinophils % 0.3 (0.00-5.0) % Basophils % 0.2 (0.0-0.4) % Absolute Granulocytes 4.02 (1.4-6.9) Basophils # 0.01 (0-0.4) Sodium (137-145) mmol/L Potassium (3.5-5.1) mmol/L Chloride (98-107) mmol/L Carbon Dioxide (22-30) mmol/L Anion Gap (5-15) MEQ/L BUN (7-17) mg/dL Creatinine (0.52-1.04) mg/dL Estimated GFR ML/MIN Glucose (74-106) mg/dL Calcium (8.4-10.2) mg/dL Monoscreen (Negative) Influenza Type A Ag (NEGATIVE) Influenza Type B Ag (NEGATIVE) RSV (PCR) (Negative) Group A Strep Antibody (NEGATIVE) - Progress Progress: re-examined Air Movement: good Progress Note: 09/06/19 15:29 Chest x-ray no acute infiltrate or other process. Antibiotics given: Yes Counseled pt/family regarding: lab results, diagnosis, need for follow-up, rad results - Departure Departure Disposition: Home Clinical Impression: Bronchitis Condition: Stable Critical Care Time: No Referrals: LUISA DELACRUZ MD [Primary Care Provider] - Additional Instructions: Avoid exposure to any kind of smoke. Drink plenty of fluids. Take your medication as prescribed. Follow-up with your primary care for persistent symptoms. Forms: Work/School Release Form Prescriptions: Albuterol 8 gm Mdi Hfa [Ventolin Hfa MDI] 8 gm IH Q4H #1 hfa.aer.ad Azithromycin 250 mg [Zithromax 250 MG TABLET] 250 mg PO ZPACK #6 tablet Hydrocodone Bit/Acetaminophen [Hydrocodone-Acetaminophen Soln] 10 ml PO Q6H # 120 ml Prednisone 10 mg [Deltasone 10 mg] 10 mg PO TID #12 tablet
--- NOTE | 2019-09-06 14:34 | XRAY ---
Indication: Cough and short of breath. Comparison: August 03, 2019. Portable chest continues to demonstrate normal heart and lungs. Bony thorax intact again with mild degenerative changes. No new/acute findings.
[2019-09-06 14:50] LABS: Absolute Neutrophil Ct (ANC) 4.02 (1.4-6.9); BASOPHIL % 0.2 % (0.0-0.4); Basophil (Absolute #) 0.01 (0-0.4); Eosinophil % 0.3 % (0.00-5.0); Eosinophil (Absolute #) 0.02 (0-0.5); Hematocrit 41.5 % (35-47); Hemoglobin 13.6 gm/dl (12.0-16.0); Lymphocyte (Absolute #) 1.94 (1.0-4.6); Lymphocytes % 29.5 % (24.0-44.0); Mean Cell Volume 88.3 fl (78-100); Mean Corpuscular Hemoglobin 28.9 pg (26-32); Mean Corpuscular Hgb Concent. 32.8 g/dl (32-36); Mean Platelet Volume 11.6 fl (7.5-11.0); Monocyte (Absolute #) 0.59 (0.0-1.3); Platelet Count 202 K/mm3 (150-450); Red Cell Distribution Width 16.2 % (11.5-14.0); White Blood Count 6.6 K/mm3 (4.0-10.5)
[2019-09-06 15:09] VITALS: BP 146/72; PULSE 80
[2019-09-06 15:15] LABS: BLOOD UREA NITROGEN 10 mg/dL (7-17); CHLORIDE 98 mmol/L (98-107); Calcium 9.7 mg/dL (8.4-10.2); Carbon Dioxide 32 mmol/L (22-30); Creatinine 1 0.61 mg/dL (0.52-1.04); Glucose 148 mg/dL (74-106); SODIUM 141 mmol/L (137-145)
[2019-09-06 15:19] LABS: Group A Strep NOT DETECTED (NEGATIVE)
[2019-09-06] MEDS ORDERED: Klor Con 10 MEQ PO ONE ×2 (15:19→15:27)
[2019-09-06 15:23] LABS: INFLUENZA A NEGATIVE (NEGATIVE); INFLUENZA B NEGATIVE (NEGATIVE); RESPIRATORY SYNCTIAL VIRUS NEGATIVE (Negative)
[2019-09-06 15:29] VITALS: O2SAT 99
[2019-09-06] MEDS ORDERED: ROCEPHIN 1 Gm-D5w 50 ml Bag** 1 G/50 ML IVPB IV ONE ×2 (15:31→15:32)
== END 2019-09-06 15:54 | disposition home or self-care (01) ==
LOC: ED 13:32
DX: J40 Bronchitis, not specified as acute or chronic (principal); R05 Cough; I10 Essential (primary) hypertension; E11.9 Type 2 diabetes mellitus without complications; Z79.899 Other long term (current) drug therapy; Z79.84 Long term (current) use of oral hypoglycemic drugs
CPT/HCPCS: 36000; 36415; 71045; 80048; 85025; 86308; 87040; 87631; 87651; 94760; 96365; 96374; 99284; J0696; J2930; A9270-GY

== ENCOUNTER 2021-05-20 14:34 | Emergency (ER) | payer OTHER ==
--- NOTE | 2021-05-20 14:52 | ERPHSYRPT ---
- History of Present Illness Time Seen by Provider: 05/20/21 14:46 Source: patient Exam Limitations: no limitations Physician History: Patient is a 51-year-old female who presents with a complaint of swelling and pain in the anterior left maxillary area. This is gone on for 24 hours swelling started today. She apparently has not had any dental care in her life. Timing/Duration: yesterday Severity: moderate ENT Location: dental Prearrival Treatment: no prearrival treatment Modifying Factors: Improves With: nothing Associated Symptoms: facial pain/swelling, tooth pain Allergies/Adverse Reactions: aspirin Allergy (Verified 02/12/19 14:44) Home Medications: Bisoprolol/Hydrochlorothiazide [Bisoprolol-Hctz 2.5-6.25 mg Tb] 1 tab PO HS 04/29/18 [History] Glimepiride 1 mg PO DAILY 04/29/18 [History] Metformin HCl 500 mg [Glucophage 500 MG] 500 mg PO DAILY 04/29/18 [History] Hx Tetanus, Diphtheria Vaccination/Date Given: No Hx Influenza Vaccination/Date Given: No Hx Pneumococcal Vaccination/Date Given: No - Review of Systems Constitutional: No Fever, No Chills Eyes: No Symptoms Ears, Nose, & Throat: No Symptoms Respiratory: No Cough, No Dyspnea Cardiac: No Chest Pain, No Edema, No Syncope Abdominal/Gastrointestinal: No Abdominal Pain, No Nausea, No Vomiting, No Diarrhea Genitourinary Symptoms: No Dysuria Musculoskeletal: No Back Pain, No Neck Pain Skin: No Rash Neurological: No Dizziness, No Focal Weakness, No Sensory Changes Psychological: No Symptoms Endocrine: No Symptoms All Other Systems: Reviewed and Negative - Past Medical History Pertinent Past Medical History: Yes Neurological History: No Pertinent History ENT History: No Pertinent History Cardiac History: Hypertension Respiratory History: No Pertinent History Endocrine Medical History: Diabetes Type II Musculoskeletal History: No Pertinent History GI Medical History: No Pertinent History History: No Pertinent History Psycho-Social History: No Pertinent History Female Reproductive Disorders: Other Other Medical History: BLOOD DISORDER: LUAN WILDEBRENDS. Left ovarian cyst - Past Surgical History Past Surgical History: Yes Neuro Surgical History: No Pertinent History Cardiac: No Pertinent History Respiratory: No Pertinent History Gastrointestinal: Appendectomy Genitourinary: No Pertinent History Musculoskeletal: No Pertinent History Female Surgical History: Tubal Ligation Other Surgical History: TUBAL LIGATION IN 1991 - Social History Smoking Status: Current every day smoker How long have you smoked: years Exposure to second hand smoke: Yes Drug Use: none Patient Lives Alone: No - Physical Exam General Appearance: moderate distress Eye Exam: bilateral eye: normal inspection, PERRL, EOMI Ear Exam: bilateral ear: auricle normal, canal normal Nasal Exam: normal inspection, No active bleeding Throat Exam: dental tenderness (The patient has extreme caries with almost every tooth eroded to the gumline. There is swelling over the left maxillary area anteriorly it appears that it is a abscess that is pointing and should drain spontaneously soon) Neck Exam: normal inspection, non-tender, supple Neurologic Exam: alert, oriented x 3, cooperative Skin Exam: normal color, warm, dry SpO2 Interpretation: normal O2 Delivery: Room Air - Course Nursing assessment & vital signs reviewed: Yes - Progress Progress: unchanged - Departure Departure Disposition: Home Clinical Impression: Dental abscess Condition: Stable Critical Care Time: No Referrals: LUISA DELACRUZ MD [Primary Care Provider] - Follow up/PCP as directed Instructions: Tooth Abscess (DC) Prescriptions: Hydrocodone/Acetaminophen [Hydrocodone-Acetamin 5-325 mg] 1 tab PO Q6HPRN PRN 3 Days #12 tablet MDD 4 PRN Reason: Pain clindamycin HCL [Cleocin HCl] 300 mg PO TID #30 cap
[2021-05-20 15:18] VITALS: BP 170/95; PULSE 93; O2SAT 99
== END 2021-05-20 15:18 | disposition home or self-care (01) ==
LOC: ED 14:34
DX: K04.7 Periapical abscess without sinus (principal); E11.8 Type 2 diabetes mellitus with unspecified complications; Z79.84 Long term (current) use of oral hypoglycemic drugs; I10 Essential (primary) hypertension; D68.0 Von Willebrand disease; Z72.0 Tobacco use; Z79.891 Long term (current) use of opiate analgesic
CPT/HCPCS: 99283

== ENCOUNTER 2021-11-01 18:03 | Emergency (ER) | payer OTHER ==
[2021-11-01 18:17] VITALS: O2SAT 99
[2021-11-01] MEDS ORDERED: Augmentin 875-125 Tablet PO ONE (18:28)
[2021-11-01] MEDS ORDERED: CLONIDINE 0.1 MG TABLET PO ONE (18:28)
[2021-11-01] MEDS ORDERED: MORPHINE SULFATE 4 MG INJ IM ONE (18:28)
--- NOTE | 2021-11-01 18:34 | ERPHSYRPT ---
- History of Present Illness Time Seen by Provider: 11/01/21 18:21 Source: patient Exam Limitations: no limitations Patient Subjective Stated Complaint: abscess and tooth pain x couple days Triage Nursing Assessment: pt to ED c/o abscess and tooth pain for a couple days. pt reports she has had this in the past and normally she can controll it with tylenol and topical ointment. rates 04/01 now. noted multiple dental carries. tender and hard to touch. does not have established dentist. Physician History: 51 years old female with history of hypertension, hyperlipidemia, diabetes mellitus, multiple bad dentition with dental caries/periodontal disease presented to the ER with 2 days of left lower jaw pain and swelling with gradually worsening and minimal relief with [id number] medication. Fever or chills reported. No swelling floor of mouth, tongue swelling or difficulty breathing/swallowing. Timing/Duration: gradual onset, persistent, days (2) Severity: moderate, severe ENT Location: dental Prearrival Treatment: over the counter meds Modifying Factors: Improves With: other Associated Symptoms: facial pain/swelling, tooth pain Allergies/Adverse Reactions: aspirin Allergy (Verified 11/01/21 18:09) Home Medications: Bisoprolol/Hydrochlorothiazide [Bisoprolol-Hctz 2.5-6.25 mg Tb] 1 tab PO HS 04/29/18 [History] Glimepiride 1 mg PO DAILY 04/29/18 [History] Metformin HCl 500 mg [Glucophage 500 MG] 500 mg PO DAILY 04/29/18 [History] Hx Tetanus, Diphtheria Vaccination/Date Given: No Hx Influenza Vaccination/Date Given: No Hx Pneumococcal Vaccination/Date Given: No Immunizations Up to Date: No Travel Risk - International Travel Have you traveled outside of the country in past 3 weeks: No - Coronavirus Screening Are you exhibiting any of the following symptoms?: No Close contact with a COVID-19 positive Pt in past 14-21 Days: No - Vaccine Status Have you recieved a Covid-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: Yes [facility]: [place] - Vaccination Dates Date of 2cond Vaccination (if applicable): has not had yet - Review of Systems Constitutional: No Symptoms Eyes: No Symptoms Ears, Nose, & Throat: Mouth Pain, Mouth Swelling Respiratory: No Symptoms Cardiac: No Symptoms Abdominal/Gastrointestinal: No Symptoms Genitourinary Symptoms: No Symptoms Musculoskeletal: No Symptoms Skin: No Symptoms Neurological: No Symptoms Psychological: No Symptoms Endocrine: No Symptoms Hematologic/Lymphatic: No Symptoms Immunological/Allergic: No Symptoms - Past Medical History Pertinent Past Medical History: Yes Neurological History: No Pertinent History ENT History: No Pertinent History Cardiac History: Hypertension Respiratory History: No Pertinent History Endocrine Medical History: Diabetes Type II Musculoskeletal History: No Pertinent History GI Medical History: No Pertinent History History: No Pertinent History Psycho-Social History: No Pertinent History Female Reproductive Disorders: Other Other Medical History: BLOOD DISORDER: LUAN WILDEBRENDS. Left ovarian cyst - Past Surgical History Past Surgical History: Yes Neuro Surgical History: No Pertinent History Cardiac: No Pertinent History Respiratory: No Pertinent History Gastrointestinal: Appendectomy Genitourinary: No Pertinent History Musculoskeletal: No Pertinent History Female Surgical History: Tubal Ligation Other Surgical History: TUBAL LIGATION IN 1991 - Social History Smoking Status: Current every day smoker How long have you smoked: years Exposure to second hand smoke: Yes Drug Use: none Patient Lives Alone: No - Nursing Vital Signs Nursing Vital Signs: Initial Vital Signs Temperature 99 F 11/01/21 18:11 Pulse Rate 105 H 11/01/21 18:11 Respiratory Rate 20 11/01/21 18:11 Blood Pressure 208/117 11/01/21 18:11 O2 Sat by Pulse Oximetry 99 11/01/21 18:11 Pain Scale Pain Intensity 10 - Physical Exam General Appearance: no apparent distress, alert Eye Exam: bilateral eye: normal inspection, PERRL, EOMI Ear Exam: bilateral ear: auricle normal Nasal Exam: normal inspection Throat Exam: normal, dental tenderness (Left lower premolar with associated gingival swelling. Negative fluctuation. 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 Started on Augmentin and given 1 dose of 0.1 mg clonidine for elevated blood pressure. Patient does take medications in the evening which she is advised to take once at home. Part of elevated pressure is secondary to pain. Recommended outpatient dental follow-up. Counseled pt/family regarding: diagnosis, need for follow-up - Departure Departure Disposition: Home Clinical Impression: Dental infection, Uncontrolled hypertension Condition: Stable Critical Care Time: No Referrals: LUISA DELACRUZ MD [Primary Care Provider] - Follow up/PCP as directed (1-2 days for reevaluation) [employer] DDS [NON-STAFF PHY W/O PRIVILEGES] - Follow up/PCP as directed (1-2 days for reevaluation) Instructions: Tooth Abscess (DC), High Blood Pressure (DC) Additional Instructions: Take pain medications as needed. Monitor your blood pressure regularly, keep a log and follow-up with PCP. Return to ER if having intractable headache, blurry vision, chest pain palpitation, shortness of breath, abdominal pain etc. Follow-up with dentist for reevaluation. Return to ER for increasing facial swelling, fever chills, difficulty swallowing/breathing etc. Prescriptions: Tramadol HCl 50 mg [Ultram 50 mg] 50 mg PO Q6HPRN PRN 3 Days #12 tablet PRN Reason: Pain Amox Tr/Potass Clav. 875 mg [Augmentin 875-125 Tablet] 875 mg PO BID #14 tablet
[2021-11-01] MEDS ORDERED: CLONIDINE 0.1 MG TABLET ONE (18:38)
[2021-11-01] MEDS ORDERED: MORPHINE SULFATE 4 MG INJ ONE (18:39)
[2021-11-01] MEDS ORDERED: Augmentin 875-125 Tablet ONE (18:39)
[2021-11-01 20:06] VITALS: BP 150/97; PULSE 80
== END 2021-11-01 20:06 | disposition home or self-care (01) ==
LOC: ED 18:03
DX: K04.7 Periapical abscess without sinus (principal); I10 Essential (primary) hypertension; R68.84 Jaw pain; R60.0 Localized edema; E78.5 Hyperlipidemia, unspecified; E11.9 Type 2 diabetes mellitus without complications; Z72.0 Tobacco use; Z79.84 Long term (current) use of oral hypoglycemic drugs; Z79.899 Other long term (current) drug therapy; Z79.891 Long term (current) use of opiate analgesic
CPT/HCPCS: 96372; 99284; J2270; A9270-GY

== ENCOUNTER 2022-01-20 18:32 | Emergency (ER) | payer OTHER ==
[2022-01-20 18:50] VITALS: O2SAT 98
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
[2022-01-20 19:22] VITALS: BP 144/83; PULSE 95
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
== END 2022-01-20 19:25 | disposition home or self-care (01) ==
LOC: ED 18:32
DX: S40.021A Contusion of right upper arm, initial encounter (principal); V87.7XXA Person injured in collision between other specified motor vehicles (traffic), initial encounter; M25.511 Pain in right shoulder; M79.601 Pain in right arm; I10 Essential (primary) hypertension; E11.9 Type 2 diabetes mellitus without complications; D68.0 Von Willebrand disease; Z72.0 Tobacco use; Z79.84 Long term (current) use of oral hypoglycemic drugs; Z79.899 Other long term (current) drug therapy
CPT/HCPCS: 73030; 73060; 99282

== ENCOUNTER 2022-07-22 11:52 | Emergency (ER) | payer OTHER ==
[2022-07-22] MEDS ORDERED: CLONIDINE 0.1 MG TABLET PO ONE (12:19)
[2022-07-22 12:26] LABS: Absolute Neutrophil Ct (ANC) 3.24 x10^3/uL (1.4-6.9); BASOPHIL % 0.2 % (0.0-0.4); Basophil (Absolute #) 0.01 x10^3/uL (0-0.4); Eosinophil % 0.2 % (0.00-5.0); Eosinophil (Absolute #) 0.01 x10^3/uL (0-0.5); Hematocrit 42.4 % (35-47); Hemoglobin 13.7 g/dL (12.0-16.0); IMMATURE GRAN # 0.03 x10^3u/L (0.00-0.03); IMMATURE GRAN % 0.5 % (0.00-0.4); Lymphocyte (Absolute #) 1.77 x10^3/uL (1.0-4.6); Lymphocytes % 30.8 % (24.0-44.0); Mean Cell Volume 80.3 fL (78-100); Mean Corpuscular Hemoglobin 25.9 pg (26-32); Mean Corpuscular Hgb Concent. 32.3 g/dL (32-36); Mean Platelet Volume 11.2 fL (7.5-11.0); Monocyte (Absolute #) 0.68 x10^3/uL (0.0-1.3); Monocytes % 11.8 % (0.0-12.0); Neutrophil % 56.5 % (36.0-66.0); Platelet Count 153 x10^3/uL (150-450); Red Blood Count 5.28 x10^6/uL (4.1-5.4); Red Cell Distribution Width 15.1 % (11.5-14.0); White Blood Count 5.7 x10^3/uL (4.0-10.5)
[2022-07-22] MEDS ORDERED: CLONIDINE 0.1 MG TABLET ONE (12:29)
[2022-07-22 12:53] LABS: Appearance Clear (Clear); Bacteria None Seen /HPF (None Seen); Bilirubin Negative (Negative); Blood Negative (Negative); Epithelial Cells Rare /HPF (None Seen); Glucose, Urine 500 mg/dL (Negative); Hyaline Casts NONE SEEN /LPF (0-2); Ketones Negative (Negative); Leukocyte Esterase Negative (Negative); Nitrite Negative (Negative); Protein,Urine Dip Negative (Negative); RBC 0-2 /HPF (0-5); Urobilinogen 0.2 mg/dL (0.2)
[2022-07-22 12:58] LABS: ADD URINE CULTURE? NO (NO)
[2022-07-22 12:59] LABS: ISTAT K 3.5 mmol/L (3.5-4.9); ISTAT iCA 1.1 mmol/L (1.12-1.32)
[2022-07-22 13:00] LABS: ISTAT CREA 0.6 mg/dL (0.6-1.3)
--- NOTE | 2022-07-22 14:00 | XRAY ---
Indication: Lightheaded and dizziness. Hyperglycemia. Multiple contiguous axial images obtained through the head without contrast. Comparison: None Normal appearing brain parenchyma, ventricles, and bony calvarium. Visualized paranasal sinuses and mastoid air cells are clear. Impression: Normal CT head without contrast exam.
--- NOTE | 2022-07-22 14:19 | ERPHSYRPT ---
- History of Present Illness Source: patient Exam Limitations: other (Poor historian) Patient Subjective Stated Complaint: Hyperglycemia Triage Nursing Assessment: Patient ambulated back to ED and transferred self to bed. Patient A+O X3. Patient's skin pink, warm and dry. Patient complains of hyperglycemia. Patient states he blood sugar prior to coming in was 272. Patient states around 1100 she started feeling dizzy and lightheaded. Patient states she has hyperglycemia and checked her blood sugar. Patient denies pain or discomfort. Physician History: 55 yo wf stated that while at work at [employer] today she developed scotoma/lightheadedness/mild dizziness. Pt states that she had similar symptoms when her glucose was elevated. She denies focal weakness/headache/chest pain/dyspnea/nausea/vomiting/diarrhea/fever. Timing/Duration: today Severity: mild Modifying Factors: Improves With: nothing Associated Symptoms: denies symptoms, weakness Allergies/Adverse Reactions: aspirin Allergy (Verified 02/25/22 15:52) Home Medications: Bisoprolol/Hydrochlorothiazide [Bisoprolol-Hctz 2.5-6.25 mg Tb] 1 tab PO HS 04/29/18 [History] Glimepiride 1 mg PO DAILY 04/29/18 [History] Metformin HCl 500 mg [Glucophage 500 MG] 500 mg PO DAILY 04/29/18 [History] PANTOPRAZOLE 40 mg Tablet [Protonix 40MG Tablet] 40 mg PO QAM 02/25/22 [History] Hx Tetanus, Diphtheria Vaccination/Date Given: No Hx Influenza Vaccination/Date Given: No Hx Pneumococcal Vaccination/Date Given: No Immunizations Up to Date: Yes Travel Risk - International Travel Have you traveled outside of the country in past 3 weeks: No - Coronavirus Screening Are you exhibiting any of the following symptoms?: No Close contact with a COVID-19 positive Pt in past 14-21 Days: No - Vaccine Status Have you recieved a Covid-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: 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[employer] - Vaccination Dates Date of 2cond Vaccination (if applicable): not recieved - Review of Systems Constitutional: No Symptoms, Lethargy, Weakness Eyes: No Symptoms Ears, Nose, & Throat: No Symptoms Respiratory: No Symptoms Cardiac: No Symptoms Genitourinary Symptoms: No Symptoms Musculoskeletal: No Symptoms Skin: No Symptoms Neurological: No Symptoms, Dizziness, Lethargy Psychological: No Symptoms Endocrine: No Symptoms Hematologic/Lymphatic: No Symptoms Immunological/Allergic: No Symptoms - Past Medical History Pertinent Past Medical History: Yes Neurological History: No Pertinent History ENT History: No Pertinent History Cardiac History: Hypertension Respiratory History: No Pertinent History Endocrine Medical History: Diabetes Type II Musculoskeletal History: No Pertinent History GI Medical History: No Pertinent History History: No Pertinent History Psycho-Social History: No Pertinent History Female Reproductive Disorders: Other Other Medical History: BLOOD DISORDER: LUAN WILDEBRENDS. Left ovarian cyst - Past Surgical History Past Surgical History: Yes Neuro Surgical History: No Pertinent History Cardiac: No Pertinent History Respiratory: No Pertinent History Gastrointestinal: Appendectomy Genitourinary: No Pertinent History Musculoskeletal: No Pertinent History Female Surgical History: Tubal Ligation Other Surgical History: TUBAL LIGATION IN 1991 - Social History Smoking Status: Current every day smoker How long have you smoked: years Exposure to second hand smoke: Yes Drug Use: none Patient Lives Alone: No - Nursing Vital Signs Nursing Vital Signs: Initial Vital Signs Temperature 97.0 F 07/22/22 12:07 Pulse Rate 89 07/22/22 12:07 Respiratory Rate 18 07/22/22 12:07 Blood Pressure 207/107 07/22/22 12:07 O2 Sat by Pulse Oximetry 100 07/22/22 12:07 Pain Scale Pain Intensity 0 - Physical Exam General Appearance: no apparent distress Eye Exam: PERRL/EOMI, eyes nml inspection Ears, Nose, Throat Exam: normal ENT inspection, TMs normal, pharynx normal, moist mucous membranes Neck Exam: normal inspection, non-tender, supple, full range of motion, No meningismus, No mass, No Brudzinski, No Kernig's, No carotid bruit Respiratory Exam: normal breath sounds, lungs clear, airway intact Cardiovascular Exam: regular rate/rhythm, normal heart sounds, normal peripheral pulses, capillary refill <2 sec, No murmur Gastrointestinal/Abdomen Exam: soft, normal bowel sounds Back Exam: normal inspection, normal range of motion, No CVA tenderness, No vertebral tenderness Extremity Exam: normal inspection, normal range of motion Neurologic Exam: alert, oriented x 3, cooperative, 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 nml as tested, normal mood/affect, nml cerebellar function, nml station & gait, sensation nml, No motor deficits, No sensory deficit Skin Exam: normal color, warm, dry Lymphatic Exam: No adenopathy SpO2 Interpretation: normal SpO2: 100 O2 Delivery: Room Air - Course Nursing assessment & vital signs reviewed: Yes EKG Interpreted by Me: RATE (NSR/Rate 82/Normal QT-QTc/Flipped anterior T waves/Non-specific ST-Twave changes) - CT Exams Head CT Interpretation: Discussed w/radiologist (CT head negative) Ordered Tests: Active Orders 24 hr Category Date Time Status EKG-ER Only STAT Care 07/22/22 13:33 Completed IV Insertion STAT Care 07/22/22 12:26 Completed POCT Glucose Check STAT Care 07/22/22 12:05 Completed HEAD WITHOUT CONTRAST [CT] Stat Exams 07/22/22 13:32 Completed CBC W DIFF Stat Lab 07/22/22 12:00 Completed POCT GLUCOSE Stat Lab 07/22/22 12:05 Completed TROPONIN Q4H Lab 07/22/22 13:00 Completed UA W/RFX UR CULTURE Stat Lab 07/22/22 12:00 Completed Medication Summary Discontinued Medications Generic Name Dose Route Start Last Admin Trade Name Tabitha PRN Reason Stop Dose Admin Clonidine 0.2 mg 07/22/22 12:19 07/22/22 12:29 Clonidine Hcl 0.1 Mg Tablet PO 07/22/22 12:20 0.2 mg STAT ONE Administration Clonidine Confirm 07/22/22 12:29 Clonidine Hcl 0.1 Mg Tablet Administered 07/22/22 12:30 Dose 0.2 mg .ROUTE .STK-MED ONE Lab/Rad Data: Laboratory Result Diagrams 07/22/22 12:00 07/22/22 12:00 Laboratory Results 07/22/22 07/22/22 07/22/22 Range/Units 13:00 12:05 12:00 WBC (4.0-10.5) x10^3/uL RBC (4.1-5.4) x10^6/uL Hgb (12.0-16.0) g/dL Hct (35-47) % MCV (78-100) fL MCH (26-32) pg MCHC (32-36) g/dL RDW (11.5-14.0) % Plt Count (150-450) x10^3/uL MPV (7.5-11.0) fL Gran % (36.0-66.0) % Immature Gran % (Auto) (0.00-0.4) % Nucleat RBC Rel Count (0.00-0.1) % Eos # (Auto) (0-0.5) x10^3/uL Immature Gran # (Auto) (0.00-0.03) x10^3u/L Absolute Lymphs (auto) (1.0-4.6) x10^3/uL Absolute Monos (auto) (0.0-1.3) x10^3/uL Absolute Nucleated RBC (0.00-0.01) x10^3u/L Lymphocytes % (24.0-44.0) % Monocytes % (0.0-12.0) % Eosinophils % (0.00-5.0) % Basophils % (0.0-0.4) % Absolute Granulocytes (1.4-6.9) x10^3/uL Basophils # (0-0.4) x10^3/uL Sodium Direct 133 L (138-146) mmol/L Potassium 3.5 (3.5-4.9) mmol/L Chloride 95 L (98-109) mmol/L Carbon Dioxide 29 (24-29) mmol/L Venous BUN 9 (8-26) mg/dL Creatinine 0.6 (0.6-1.3) mg/dL Glucose 251 H (70-105) mg/dL POC Glucometer 229 H (74 to 106) mg/dL Ionized Calcium 1.10 L (1.12-1.32) mmol/L Troponin I < 0.012 (0.000-0.034) ng/mL Urine Color (Yellow) Urine Appearance (Clear) Urine pH (4.6-8.0) Ur Specific Sunburst (1.005-1.030) Urine Protein (Negative) Urine Glucose (UA) (Negative) mg/dL Urine Ketones (Negative) Urine Blood (Negative) Urine Nitrite (Negative) Urine Bilirubin (Negative) Urine Urobilinogen (0.2) mg/dL Ur Leukocyte Esterase (Negative) U Hyaline Cast (Auto) (0-2) /LPF Urine Microscopic RBC (0-5) /HPF Urine Microscopic WBC (0-5) /HPF Ur Epithelial Cells (None Seen) /HPF Urine Bacteria (None Seen) /HPF Urine Culture Reflexed (NO) 07/22/22 07/22/22 Range/Units 12:00 12:00 WBC 5.7 (4.0-10.5) x10^3/uL RBC 5.28 (4.1-5.4) x10^6/uL Hgb 13.7 (12.0-16.0) g/dL Hct 42.4 (35-47) % MCV 80.3 (78-100) fL MCH 25.9 L (26-32) pg MCHC 32.3 (32-36) g/dL RDW 15.1 H (11.5-14.0) % Plt Count 153 (150-450) x10^3/uL MPV 11.2 H (7.5-11.0) fL Gran % 56.5 (36.0-66.0) % Immature Gran % (Auto) 0.5 H (0.00-0.4) % Nucleat RBC Rel Count 0.0 (0.00-0.1) % Eos # (Auto) 0.01 (0-0.5) x10^3/uL Immature Gran # (Auto) 0.03 (0.00-0.03) x10^3u/L Absolute Lymphs (auto) 1.77 (1.0-4.6) x10^3/uL Absolute Monos (auto) 0.68 (0.0-1.3) x10^3/uL Absolute Nucleated RBC 0.00 (0.00-0.01) x10^3u/L Lymphocytes % 30.8 (24.0-44.0) % Monocytes % 11.8 (0.0-12.0) % Eosinophils % 0.2 (0.00-5.0) % Basophils % 0.2 (0.0-0.4) % Absolute Granulocytes 3.24 (1.4-6.9) x10^3/uL Basophils # 0.01 (0-0.4) x10^3/uL Sodium Direct (138-146) mmol/L Potassium (3.5-4.9) mmol/L Chloride (98-109) mmol/L Carbon Dioxide (24-29) mmol/L Venous BUN (8-26) mg/dL Creatinine (0.6-1.3) mg/dL Glucose (70-105) mg/dL POC Glucometer (74 to 106) mg/dL Ionized Calcium (1.12-1.32) mmol/L Troponin I (0.000-0.034) ng/mL Urine Color Yellow (Yellow) Urine Appearance Clear (Clear) Urine pH 6.0 (4.6-8.0) Ur Specific Sunburst 1.010 (1.005-1.030) Urine Protein Negative (Negative) Urine Glucose (UA) 500 A (Negative) mg/dL Urine Ketones Negative (Negative) Urine Blood Negative (Negative) Urine Nitrite Negative (Negative) Urine Bilirubin Negative (Negative) Urine Urobilinogen 0.2 (0.2) mg/dL Ur Leukocyte Esterase Negative (Negative) U Hyaline Cast (Auto) NONE SEEN (0-2) /LPF Urine Microscopic RBC 0-2 (0-5) /HPF Urine Microscopic WBC 3-5 (0-5) /HPF Ur Epithelial Cells Rare (None Seen) /HPF Urine Bacteria None Seen (None Seen) /HPF Urine Culture Reflexed NO (NO) - Progress Progress: improved Progress Note: 07/22/22 21:59 Nursing note and vital signs reviewed All labs/Ct results reviewed and shared w pt Glucose wo critical elevation, and pt nonketotic w normal anion gap. No focal weakness, dyspnea, or chest pain in ER Pt w normal serial neuro exams Pt is a full code No housing or food insecurities noted 07/22/22 22:00 Counseled pt/family regarding: lab results, diagnosis, need for follow-up, rad results - Departure Departure Disposition: Home Clinical Impression: Near syncope, Hyperglycemia Condition: Stable Critical Care Time: No Referrals: LUISA DELACRUZ MD [Primary Care Provider] - Follow up/PCP as directed Instructions: High Blood Sugar, Adult (DC), Near Fainting (DC) Additional Instructions: Watch your glucose closely Follow up with your family MD in 1-2 days Return to ER for focal weakness, chest pain, headache, or shortness of breath Forms: Work/School Release Form
[2022-07-22 16:31] VITALS: BP 98/63; PULSE 67
[2022-07-22 22:03] VITALS: O2SAT 100
== END 2022-07-22 16:31 | disposition home or self-care (01) ==
LOC: ED 11:52
DX: E11.65 Type 2 diabetes mellitus with hyperglycemia (principal); R55 Syncope and collapse; R42 Dizziness and giddiness; H53.459 Other localized visual field defect, unspecified eye; I10 Essential (primary) hypertension; Z79.84 Long term (current) use of oral hypoglycemic drugs; Z79.899 Other long term (current) drug therapy; Z72.0 Tobacco use
CPT/HCPCS: 36000; 36415; 70450; 80047; 81001; 82947; 84484; 85025; 93005; 99284; A9270-GY

== ENCOUNTER 2022-12-13 12:05 | Emergency (ER) | payer OTHER ==
[2022-12-13 12:21] VITALS: BP 138/79; PULSE 94; O2SAT 98
--- NOTE | 2022-12-13 12:52 | XRAY ---
Indication: Pain following injury. Comparison: February 25, 2022 3 view left wrist unchanged again demonstrating osteopenia, radiocarpal joint space narrowing, and mild 1st metacarpal multangular degenerative changes. No new/acute abnormalities.
--- NOTE | 2022-12-13 12:54 | XRAY ---
Indication: Pain following injury. Comparison: February 25, 2022 3 view left hand unchanged again demonstrating osteopenia, radiocarpal joint space narrowing, and mild 1st metacarpal multangular degenerative changes. No new/acute abnormalities.
--- NOTE | 2022-12-13 12:57 | ERPHSYRPT ---
- History of Present Illness Time Seen by Provider: 12/13/22 12:11 Source: patient Exam Limitations: no limitations Patient Subjective Stated Complaint: Pt smashed her left hand between 2 bun racks while working at [employer] Nursing Assessment: Pt brought self to the ER, vitals wnl, rates pain as 5/10, left hand slightly swollen, denies any other injuries, pulses normal, skin n/w/d, n bruising noted at this time Physician History: Left hand and wrist pain. Patient states that her grill at work hit her hand. She works at [employer]. States that it got caught in between this. No fever no chills no falls no other trauma. She has not done anything to make it better or worse. Allergies/Adverse Reactions: aspirin Allergy (Verified 12/13/22 12:21) Home Medications: Bisoprolol/Hydrochlorothiazide [Bisoprolol-Hctz 2.5-6.25 mg Tb] 1 tab PO HS 04/29/18 [History] Glimepiride 1 mg PO DAILY 04/29/18 [History] Metformin HCl 500 mg [Glucophage 500 MG] 500 mg PO DAILY 04/29/18 [History] Hx Tetanus, Diphtheria Vaccination/Date Given: No Hx Influenza Vaccination/Date Given: No Hx Pneumococcal Vaccination/Date Given: No Travel Risk - International Travel Have you traveled outside of the country in past 3 weeks: No - Coronavirus Screening Are you exhibiting any of the following symptoms?: No Close contact with a COVID-19 positive Pt in past 14-21 Days: No - Vaccine Status Have you recieved a Covid-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: 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[employer] - Vaccination Dates Date of 2cond Vaccination (if applicable): not recieved - Review of Systems Constitutional: No Fever, No Chills Eyes: No Symptoms Ears, Nose, & Throat: No Symptoms Respiratory: No Cough, No Dyspnea Cardiac: No Chest Pain, No Edema, No Syncope Abdominal/Gastrointestinal: No Abdominal Pain, No Nausea, No Vomiting, No Diarrhea Genitourinary Symptoms: No Dysuria Musculoskeletal: No Back Pain, No Neck Pain Skin: No Rash Neurological: No Dizziness, No Focal Weakness, No Sensory Changes Psychological: No Symptoms Endocrine: No Symptoms All Other Systems: Reviewed and Negative - Past Medical History Pertinent Past Medical History: Yes Neurological History: No Pertinent History ENT History: No Pertinent History Cardiac History: Hypertension Respiratory History: No Pertinent History Endocrine Medical History: Diabetes Type II Musculoskeletal History: No Pertinent History GI Medical History: No Pertinent History History: No Pertinent History Psycho-Social History: No Pertinent History Female Reproductive Disorders: Other Other Medical History: BLOOD DISORDER: LUAN WILDEBRENDS. Left ovarian cyst - Past Surgical History Past Surgical History: Yes Neuro Surgical History: No Pertinent History Cardiac: No Pertinent History Respiratory: No Pertinent History Gastrointestinal: Appendectomy Genitourinary: No Pertinent History Musculoskeletal: No Pertinent History Female Surgical History: Tubal Ligation Other Surgical History: TUBAL LIGATION IN 1991 - Social History Smoking Status: Current every day smoker How long have you smoked: years Exposure to second hand smoke: Yes Drug Use: none Patient Lives Alone: No - Nursing Vital Signs Nursing Vital Signs: Initial Vital Signs Temperature 98.4 F 12/13/22 12:12 Pulse Rate 94 H 12/13/22 12:12 Blood Pressure 138/79 12/13/22 12:12 O2 Sat by Pulse Oximetry 98 12/13/22 12:12 Pain Scale Pain Intensity 5 - Physical Exam General Appearance: no apparent distress, alert Eye Exam: PERRL/EOMI, eyes nml inspection Ears, Nose, Throat Exam: normal ENT inspection, TMs normal, pharynx normal, moist mucous membranes Neck Exam: normal inspection, non-tender, supple, full range of motion Respiratory Exam: normal breath sounds, lungs clear, No respiratory distress Cardiovascular Exam: regular rate/rhythm, normal heart sounds, normal peripheral pulses Gastrointestinal/Abdomen Exam: soft, normal bowel sounds, No tenderness, No mass Back Exam: normal inspection, normal range of motion, No CVA tenderness, No vertebral tenderness Extremity Exam: normal inspection, normal range of motion, pelvis stable, other (Left wrist tenderness. No deformity. Full range of motion with some pain.) Neurologic Exam: alert, oriented x 3, cooperative, normal mood/affect, nml cerebellar function, nml station & gait, sensation nml, No motor deficits Skin Exam: normal color, warm, dry, No rash Lymphatic Exam: No adenopathy SpO2: 98 - Course Nursing assessment & vital signs reviewed: Yes Ordered Tests: Active Orders 24 hr Category Date Time Status HAND (MINIMUM 3 VIEWS) Stat Exams 12/13/22 12:23 Completed WRIST (MIN 3 VIEWS) Stat Exams 12/13/22 12:24 Completed - Progress Progress: improved Progress Note: 12/13/22 13:50 Patient has tenderness of left wrist and hand. X-rays obtained. This shows no acute fracture. Plan for [facility] wrap close follow-up with PCP. May return here sooner for new or changing symptoms. Counseled pt/family regarding: diagnosis, need for follow-up, rad results - Departure Departure Disposition: Home Clinical Impression: Left wrist sprain Condition: Stable Critical Care Time: No Referrals: LUISA DELACRUZ MD [Primary Care Provider] - Follow up/PCP as directed Instructions: Hand Pain (DC)
== END 2022-12-13 13:09 | disposition home or self-care (01) ==
LOC: ED 12:05
DX: S63.502A Unspecified sprain of left wrist, initial encounter (principal); W22.8XXA Striking against or struck by other objects, initial encounter; Y92.511 Restaurant or cafe as the place of occurrence of the external cause; Y99.0 Civilian activity done for income or pay; I10 Essential (primary) hypertension; E11.9 Type 2 diabetes mellitus without complications; Z79.84 Long term (current) use of oral hypoglycemic drugs; Z79.899 Other long term (current) drug therapy; Z72.0 Tobacco use
CPT/HCPCS: 73110; 73130; 99282

== ENCOUNTER 2023-01-16 10:19 | Emergency (ER) | payer OTHER ==
[2023-01-16 10:45] VITALS: RESP 16; TEMP 98
[2023-01-16] MEDS ORDERED: NORCO 5/325 MG ONE (11:04)
[2023-01-16] MEDS ORDERED: NORCO 5/325 MG PO ONE (11:06)
--- NOTE | 2023-01-16 11:11 | ERPHSYRPT ---
- History of Present Illness Time Seen by Provider: 01/16/23 10:27 Source: patient Exam Limitations: no limitations Patient Subjective Stated Complaint: Pt reports a couple of days ago I got a sharp pain in my right leg (pointing to right calf) and it has just gotten worse . Pain is now reported to extend up to top of right leg. Triage Nursing Assessment: Pt alert and oriented x3. No apparent respiratory distress. Wheeled to ED cot by ED staff, transfered from chair to cot without difficulty. Skin w/p/d. No obvious deformities/discoloration. Pt feels right calf is more swollen than normal. Pt rates pain 01/30. Physician History: 52-year-old female with history of hypertension, diabetes mellitus presented in the ER with chief complaint of right lower extremity pain gradually worsening for the last 2 to 3 days. Patient reported initially it started in the right calf and gradually involving the right thigh without any fall or trauma. Patient reports dull aching cramping/sharp pain with no significant aggravating or relieving factors. Reports associated swelling of the leg without redness No difficulty movements at any joint. Normal numbness or weakness of lower extremity. Denies any back pain. Timing/Duration: day(s) (2), gradual onset, worse Severity: moderate Associated Symptoms: denies symptoms Allergies/Adverse Reactions: aspirin Allergy (Verified 01/16/23 10:36) Home Medications: Bisoprolol/Hydrochlorothiazide [Bisoprolol-Hctz 2.5-6.25 mg Tb] 1 tab PO HS [History] Glimepiride 1 mg PO DAILY 04/29/18 [History] Metformin HCl 500 mg [Glucophage 500 MG] 500 mg PO DAILY 04/29/18 [History] Hx Tetanus, Diphtheria Vaccination/Date Given: No Hx Influenza Vaccination/Date Given: No Hx Pneumococcal Vaccination/Date Given: No Travel Risk - International Travel Have you traveled outside of the country in past 3 weeks: No - Coronavirus Screening Are you exhibiting any of the following symptoms?: No Close contact with a COVID-19 positive Pt in past 14-21 Days: No - Vaccine Status Have you recieved a Covid-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: 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[employer]: [employer] - Vaccination Dates Date of 2cond Vaccination (if applicable): not recieved - Review of Systems Constitutional: No Symptoms Eyes: No Symptoms Ears, Nose, & Throat: No Symptoms Respiratory: No Symptoms Cardiac: No Symptoms Abdominal/Gastrointestinal: No Symptoms Genitourinary Symptoms: No Symptoms Musculoskeletal: Myalgias Skin: No Symptoms Neurological: No Symptoms Psychological: No Symptoms Hematologic/Lymphatic: No Symptoms - Past Medical History Pertinent Past Medical History: Yes Neurological History: No Pertinent History ENT History: No Pertinent History Cardiac History: Hypertension Respiratory History: No Pertinent History Endocrine Medical History: Diabetes Type II Musculoskeletal History: No Pertinent History GI Medical History: No Pertinent History History: No Pertinent History Psycho-Social History: No Pertinent History Female Reproductive Disorders: Other Other Medical History: BLOOD DISORDER: LUAN WILDEBRENDS. Left ovarian cyst - Past Surgical History Past Surgical History: Yes Neuro Surgical History: No Pertinent History Cardiac: No Pertinent History Respiratory: No Pertinent History Gastrointestinal: Appendectomy Genitourinary: No Pertinent History Musculoskeletal: No Pertinent History Female Surgical History: Tubal Ligation Other Surgical History: TUBAL LIGATION IN 1991 - Social History Smoking Status: Current every day smoker How long have you smoked: years Exposure to second hand smoke: Yes Drug Use: none Patient Lives Alone: No - Nursing Vital Signs Nursing Vital Signs: Initial Vital Signs Temperature 98 F 01/16/23 10:36 Pulse Rate 89 01/16/23 10:36 Respiratory Rate 16 01/16/23 10:36 Blood Pressure 119/75 01/16/23 10:36 O2 Sat by Pulse Oximetry 98 01/16/23 10:36 Pain Scale Pain Intensity 2 - Physical Exam General Appearance: no apparent distress, alert Eye Exam: PERRL/EOMI Ears, Nose, Throat Exam: normal ENT inspection Neck Exam: normal inspection, full range of motion Respiratory Exam: normal breath sounds, lungs clear Cardiovascular Exam: regular rate/rhythm, normal heart sounds Back Exam: normal inspection, normal range of motion, No CVA tenderness, No vertebral tenderness Extremity Exam: normal inspection, normal range of motion, pelvis stable, patricia's sign (Right side with tenderness of right thigh muscle. No osseous tenderness. Intact range of motion of all joints. No signs of cellulitis.) Neurologic Exam: alert, oriented x 3, cooperative Skin Exam: normal color SpO2 Interpretation: normal SpO2: 98 O2 Delivery: Room Air Ordered Tests: Active Orders 24 hr Category Date Time Status Ultrasound Unilateral Extremities [VENOUS UNILAT/ Exams 01/16/23 11:03 Completed LIMITED EXTREMIT] [US] Stat Medication Summary Discontinued Medications Generic Name Dose Route Start Last Admin Trade Name Tabitha PRN Reason Stop Dose Admin Hydrocodone Bitart/Acetaminophen Confirm 01/16/23 11:04 Hydrocodone/Apap 5/325 1 Tab Tablet Administered 01/16/23 11:05 Dose 1 tab .ROUTE .STK-MED ONE Hydrocodone Bitart/Acetaminophen 1 tab 01/16/23 11:06 01/16/23 11:08 Hydrocodone/Apap 5/325 1 Tab Tablet PO 01/16/23 11:07 1 tab STAT ONE Administration - Progress Progress: improved, re-examined Progress Note: 01/16/23 11:10 52-year-old female with history of hypertension, diabetes mellitus presented in the ER with chief complaint of right lower extremity pain gradually worsening for the last 2 to 3 days. Patient reported initially it started in the right ca lf and gradually involving the right thigh without any fall or trauma. Patient reports dull aching cramping/sharp pain with no significant aggravating or relieving factors. Reports associated swelling of the leg without redness No difficulty movements at any joint. Normal numbness or weakness of lower extremity. Denies any back pain. Patient does not have any bony tenderness. Has positive Homans' sign and tenderness of right thigh. No signs of cellulitis. No fever or chills reported. No fall or trauma reported. Will obtain ultrasound, given symptomatic treatment for pain. Pain is not radiating from the back and in fact it started initially in the calf and gradually extending proximally. Good dorsalis pedis pulse with cap refill less than 3 seconds. 01/16/23 12:50 She is given [place] for symptomatic relief, on reevaluation her pain is improved. I have obtained ultrasound right lower extremity and is negative for DVT. No signs of cellulitis, no bony injury., Do not think needs any other work-up as I think is probably muscular pain. Recommended Tylenol to take as needed. Outpatient follow-up for reevaluation in 1 week and may need to repeat an ultrasound if pain does not go away. Discussed signs symptoms of worsening needing return to ER which she seems understanding. Counseled pt/family regarding: diagnosis, need for follow-up, rad results Medical Desision Making - Diagnostic Testing Radiological Interpretation: Reviewed by me - Risk of complications Low Risk: Low risk of morbidity from additional dx testing or treatment - Departure Departure Disposition: Home Clinical Impression: Right leg pain Condition: Stable Critical Care Time: No Referrals: LUISA DELACRUZ MD [Primary Care Provider] - Follow Up with PCP/3 days Instructions: Muscle and Bone Pain (DC) Additional Instructions: Take Tylenol as needed. Follow-up with primary care for reevaluation and may need another ultrasound if pain does not go away or having worsening of swelling after a week. Return to ER for any worsening.
--- NOTE | 2023-01-16 11:45 | XRAY ---
Indication: Pain and swelling. Two-dimensional sonogram and color Doppler imaging of the major venous vessels of the right leg performed. Comparison: None No thrombus seen in the examined deep venous vessels of the right leg including greater saphenous vein. Veins demonstrate normal compressibility. Venous waveforms are normal with and without augmentation. Impression: Right leg negative for DVT.
[2023-01-16 13:03] VITALS: BP 108/71; PULSE 88; O2SAT 97
== END 2023-01-16 13:02 | disposition home or self-care (01) ==
LOC: ED 10:19
DX: M79.604 Pain in right leg (principal); I10 Essential (primary) hypertension; E11.9 Type 2 diabetes mellitus without complications; Z79.84 Long term (current) use of oral hypoglycemic drugs; Z79.899 Other long term (current) drug therapy; Z72.0 Tobacco use
CPT/HCPCS: 93971; 99282; A9270-GY

== ENCOUNTER 2023-06-22 19:54 | Emergency (ER) | payer OTHER ==
[2023-06-22 20:14] VITALS: TEMP 97.3; O2SAT 100
--- NOTE | 2023-06-22 21:06 | ERPHSYRPT ---
- History of Present Illness Time Seen by Provider: 06/22/23 20:09 Source: patient Exam Limitations: no limitations Patient Subjective Stated Complaint: pt states that she has fractured her left hand/ wrist multiple times over the years starting in early adulthood. pt repo rts that a couple of hours prior to coming to ED this evening it started hurting again, is swollen, with some numbness to entire area. denies recent injury or accident to account for pain at this time. Triage Nursing Assessment: pt ambulated into room 8 independently with slow steady gait after standing on scale for weight acquisition. pt is alert and oriented times three, able to move all extremities (limited to left arm due to pain), able to speak in complete sentences, and with resp even and unlabored. left radial pulse palpable, left hand color, cap refill, movement all within normal limits. pt states that she can feel touch to hand/ wrist/ fingers but that it is dulled. Physician History: 53 years old right-handed dominant female with history of hypertension, GERD, diabetes mellitus presented in the ER with chief complaint of left hand and wrist pain with some numbness and tingling sensation in the fingers intermittently. Patient reports having multiple fractures in the left hand/wrist in the past and lately having increased pain with movements at the wrist and the dorsum of the hand and some tingly sensation in the fingers. Also reports hand going numb while sleeping and has to flicker. Pain and numbness gets worse with hyperflexion at the wrist. No new fall or trauma reported. Does report some swelling on the dorsum of the hand as well. Allergies/Adverse Reactions: aspirin Allergy (Severe, Verified 06/22/23 20:02) type 3 vonWillenbrand's so doesn't clot Home Medications: Bisoprolol/Hydrochlorothiazide [Bisoprolol-Hctz 2.5-6.25 mg Tb] 1 tab PO DAILY 04/29/18 [History] Glimepiride 1 mg PO DAILY 04/29/18 [History] Metformin HCl 500 mg [Glucophage 500 MG] 500 mg PO DAILY 04/29/18 [History] PANTOPRAZOLE 40 mg Tablet [Protonix 40MG Tablet] 40 mg PO QAM 06/22/23 [History] Hx Tetanus, Diphtheria Vaccination/Date Given: No Hx Influenza Vaccination/Date Given: No Hx Pneumococcal Vaccination/Date Given: No Immunizations Up to Date: No Travel Risk - International Travel Have you traveled outside of the country in past 3 weeks: No - Coronavirus Screening Are you exhibiting any of the following symptoms?: No Close contact with a COVID-19 positive Pt in past 14-21 Days: No - Vaccine Status Have you recieved a 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-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: 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: [employer] - Vaccination Dates Date of 2cond Vaccination (if applicable): not recieved - Review of Systems Constitutional: No Symptoms Ears, Nose, & Throat: No Symptoms Respiratory: No Symptoms Cardiac: No Symptoms Abdominal/Gastrointestinal: No Symptoms Genitourinary Symptoms: No Symptoms Musculoskeletal: Joint Pain Skin: No Symptoms Neurological: No Symptoms Hematologic/Lymphatic: No Symptoms Immunological/Allergic: No Symptoms - Past Medical History Pertinent Past Medical History: Yes Neurological History: No Pertinent History ENT History: No Pertinent History Cardiac History: Hypertension Respiratory History: No Pertinent History Endocrine Medical History: Diabetes Type II Musculoskeletal History: No Pertinent History GI Medical History: No Pertinent History History: No Pertinent History Psycho-Social History: No Pertinent History Female Reproductive Disorders: Other Other Medical History: BLOOD DISORDER: LUAN WILDEBRENDS. Left ovarian cyst - Past Surgical History Past Surgical History: Yes Neuro Surgical History: No Pertinent History Cardiac: No Pertinent History Respiratory: No Pertinent History Gastrointestinal: Appendectomy Genitourinary: No Pertinent History Musculoskeletal: No Pertinent History Female Surgical History: Tubal Ligation Other Surgical History: TUBAL LIGATION IN 1991 - Social History Smoking Status: Current every day smoker How long have you smoked: 15yo Exposure to second hand smoke: Yes Drug Use: none Patient Lives Alone: No - Nursing Vital Signs Nursing Vital Signs: Initial Vital Signs Pulse Rate 95 H 06/22/23 20:00 Respiratory Rate 18 06/22/23 20:00 Blood Pressure 201/113 06/22/23 20:00 O2 Sat by Pulse Oximetry 99 06/22/23 20:00 Pain Scale Pain Intensity 5 - Physical Exam General Appearance: no apparent distress, alert Eyes, Ears, Nose, Throat Exam: normal ENT inspection Neck Exam: normal inspection, supple, full range of motion Cardiovascular/Respiratory Exam: normal breath sounds, regular rate/rhythm Elbow/Forearm Exam: normal inspection, non-tender, no evidence of injury, normal ROM Wrist Exam: normal inspection, non-tender Hand Exam: normal inspection, bone tenderness (Dorsum of hand with minimal swelling. 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 She has multiple fractures in the past in the left wrist. She has numbness and tingling sensation in the ulnar distribution. Positive Phalen and Tinel test. X-rays are negative for fracture dislocation reviewed by me, official report is pending. Patient is feeling better on reevaluation without any medications. I believe patient has some element of carpal tunnel. Placed in a splint, recommended outpatient follow-up for reevaluation and nerve conduction studies. Discussed signs symptoms of worsening needing return to ER which she seems understanding. Stable for discharge. Counseled pt/family regarding: diagnosis, need for follow-up, rad results Medical Desision Making - Diagnostic Testing Diagnostic test were ordered, analyzed, and reviewed by me: Yes Radiological Interpretation: Interpreted by me, Reviewed by me - Departure Departure Disposition: Home Clinical Impression: Carpal tunnel syndrome Condition: Stable Critical Care Time: No Referrals: LUISA DELACRUZ MD [Primary Care Provider] - Follow up with PCP 2 days DYLON - CHATA FORBES NP [NON-STAFF PHY W/O PRIVILEGES] - Follow up/PCP as directed (In 2 days for reevaluation) Instructions: Carpal Tunnel Syndrome (DC) Additional Instructions: Take Tylenol/ibuprofen as needed. Follow-up with primary care/orthopedics for reevaluation. Return to ER for worsening.
[2023-06-22 21:25] VITALS: RESP 18
[2023-06-22 22:27] VITALS: BP 175/103; PULSE 80
--- NOTE | 2023-06-23 08:18 | XRAY ---
Indication: Pain. Comparison: December 13, 2022 3 view left hand unchanged again demonstrating osteopenia, radiocarpal joint space narrowing, and mild 1st metacarpal multangular degenerative changes. No new/acute abnormalities.
== END 2023-06-22 22:31 | disposition home or self-care (01) ==
LOC: ED 19:54
DX: G56.02 Carpal tunnel syndrome, left upper limb (principal); M79.642 Pain in left hand; M25.532 Pain in left wrist; I10 Essential (primary) hypertension; E11.9 Type 2 diabetes mellitus without complications; Z79.84 Long term (current) use of oral hypoglycemic drugs; Z79.899 Other long term (current) drug therapy; Z72.0 Tobacco use
CPT/HCPCS: 73130; 99283; L3908

== ENCOUNTER 2024-07-26 15:18 | Emergency (ER) | payer OTHER ==
--- NOTE | 2024-07-26 16:12 | ERPHSYRPT ---
- History of Present Illness Time Seen by Provider: 07/26/24 16:11 Historian: patient, family Exam Limitations: no limitations Physician History: This is a 54-year-old white female patient of Dr. Delacruz who presents to the emergency department by private vehicle accompanied by his spouse secondary to left lower quadrant abdominal pain and vomiting that has been present for 2 days. Patient denies chest pain. Patient denies shortness of breath. Patient has not had any diarrhea. She occasionally gets constipated. The pain is described as sharp and constant. Patient has never had a colonoscopy. Patient has had an appendectomy in the past and has known left ovarian cyst in the past. Patient has a history of hypertension, diabetes, gastroesophageal reflux di sease, bilateral tubal ligation Timing/Duration: day(s) (2) Activities at Onset: none Quality: sharpness Abdominal Pain Onset Location: LLQ, flank (Left flank) Severity of Pain-Max: moderate Severity of Pain-Current: moderate Modifying Factors: Improves With: vomiting Associated Symptoms: nausea, vomiting, No chest pain, No shortness of breath Previous symptoms: no prior history, no recent treatment Allergies/Adverse Reactions: aspirin Allergy (Severe, Verified 07/26/24 16:08) type 3 vonWillenbrand's so doesn't clot Home Medications: Bisoprolol/Hydrochlorothiazide [Bisoprolol-Hctz 2.5-6.25 mg Tb] 1 tab PO DAILY 04/29/18 [History] Glimepiride 1 mg PO DAILY 04/29/18 [History] Metformin HCl 500 mg [Glucophage 500 MG] 500 mg PO DAILY 04/29/18 [History] PANTOPRAZOLE 40 mg Tablet [Protonix 40MG Tablet] 40 mg PO QAM 06/22/23 [History] Hx Tetanus, Diphtheria Vaccination/Date Given: No Hx Influenza Vaccination/Date Given: No Hx Pneumococcal Vaccination/Date Given: No Travel Risk - International Travel Have you traveled outside of the country in past 3 weeks: No - Emerging Infectious Disease Are you exhibiting symptoms associated with any current EIDs: No - Review of Systems Constitutional: No Symptoms Eyes: No Symptoms Ears, Nose, & Throat: No Symptoms Respiratory: No Symptoms Cardiac: No Symptoms Abdominal/Gastrointestinal: Abdominal Pain (Left lower quadrant) Genitourinary Symptoms: No Symptoms, Flank Pain (Left side) Musculoskeletal: No Symptoms Skin: No Symptoms Neurological: No Symptoms Psychological: No Symptoms Endocrine: No Symptoms Hematologic/Lymphatic: No Symptoms Immunological/Allergic: No Symptoms All Other Systems: Reviewed and Negative - Past Medical History Pertinent Past Medical History: Yes Neurological History: No Pertinent History ENT History: No Pertinent History Cardiac History: Hypertension Respiratory History: No Pertinent History Endocrine Medical History: Diabetes Type II Musculoskeletal History: No Pertinent History GI Medical History: No Pertinent History History: No Pertinent History Psycho-Social History: No Pertinent History Female Reproductive Disorders: Other Other Medical History: BLOOD DISORDER: LUAN WILDEBRENDS. Left ovarian cyst - Past Surgical History Past Surgical History: Yes Neuro Surgical History: No Pertinent History Cardiac: No Pertinent History Respiratory: No Pertinent History Gastrointestinal: Appendectomy Genitourinary: No Pertinent History Musculoskeletal: No Pertinent History Female Surgical History: Tubal Ligation Other Surgical History: TUBAL LIGATION IN 1991 - Social History Smoking Status: Current every day smoker How long have you smoked: 15yo Exposure to second hand smoke: Yes Drug Use: none Patient Lives Alone: No - Nursing Vital Signs Nursing Vital Signs: Initial Vital Signs Temperature 98.3 F 07/26/24 16:05 Pulse Rate 100 H 07/26/24 16:05 Respiratory Rate 13 07/26/24 16:05 Blood Pressure 172/86 07/26/24 16:05 O2 Sat by Pulse Oximetry 100 07/26/24 16:05 Pain Scale Pain Intensity 4 - Physical Exam General Appearance: no apparent distress, alert, anxiety, thin Eye Exam: PERRL/EOMI, eyes nml inspection Ears, Nose, Throat Exam: normal ENT inspection, moist mucous membranes Neck Exam: normal inspection, non-tender, supple, full range of motion Respiratory Exam: normal breath sounds, lungs clear, airway intact, No chest tenderness, No respiratory distress Cardiovascular Exam: regular rate/rhythm, normal heart sounds, normal peripheral pulses Gastrointestinal/Abdomen Exam: soft, normal bowel sounds, tenderness (Left lower quadrant to palpation), guarding (Left lower quadrant to palpation), rebound (Left lower quadrant to palpation) Pelvic Exam: not done Rectal Exam: not done Back Exam: normal inspection, normal range of motion, No CVA tenderness, No vertebral tenderness Extremity Exam: normal inspection, normal range of motion, pelvis stable Neurologic Exam: alert, oriented x 3, cooperative, nml cerebellar function, nml station & gait, sensation nml Skin Exam: normal color, warm, dry Lymphatic Exam: No adenopathy SpO2 Interpretation: normal O2 Delivery: Room Air - Course Nursing assessment & vital signs reviewed: Yes Ordered Tests: Active Orders 24 hr Category Date Time Status IV Insertion STAT Care 07/26/24 16:39 Active ABDOMEN AND PELVIS W/0 CONTRAS [CT] Stat Exams 07/26/24 16:40 Taken AMYLASE Stat Lab 07/26/24 16:42 Completed CBC W DIFF Stat Lab 07/26/24 16:42 Completed CMP Stat Lab 07/26/24 16:42 Completed CULTURE,URINE Stat Lab 07/26/24 16:43 Received LIPASE Stat Lab 07/26/24 16:42 Completed UA W/RFX UR CULTURE Stat Lab 07/26/24 16:43 Completed Medication Summary Discontinued Medications Generic Name Dose Route Start Last Admin Trade Name Freq PRN Reason Stop Dose Admin Hydromorphone HCl 1 mg 07/26/24 16:39 07/26/24 16:59 Hydromorphone 1 Mg/1ml Inj IV 07/26/24 16:40 1 mg STAT ONE Administration Hydromorphone HCl Confirm 07/26/24 16:58 Hydromorphone 1 Mg/1ml Inj Administered 07/26/24 16:59 Dose 1 mg .ROUTE .STK-MED ONE Sodium Chloride 1,000 mls @ 999 mls/hr 07/26/24 16:39 07/26/24 18:35 Sodium Chloride 0.9% 1000 Ml IV 07/26/24 17:39 Infused .Q1H1M STA Infusion Sodium Chloride Confirm 07/26/24 16:58 Sodium Chloride 0.9% 1000 Ml Administered 07/26/24 16:59 Dose 1,000 mls @ ud .ROUTE .STK-MED ONE Ondansetron HCl 4 mg 07/26/24 16:39 07/26/24 16:59 Ondansetron Hcl 4 Mg/2 Ml Vial IV 07/26/24 16:40 4 mg STAT ONE Administration Ondansetron HCl Confirm 07/26/24 16:57 Ondansetron Hcl 4 Mg/2 Ml Vial Administered 07/26/24 16:58 Dose 4 mg .ROUTE .STK-MED ONE Lab/Rad Data: Laboratory Result Diagrams 07/26/24 16:42 07/26/24 16:42 Laboratory Results 07/26/24 07/26/24 07/26/24 Range/Units 16:43 16:42 16:42 WBC 5.3 (3.98-10.04) x10^3/uL RBC 4.60 (3.93-5.22) x10^6/uL Hgb 10.6 L (11.2-15.7) g/dL Hct 34.3 (34.1-44.9) % MCV 74.6 L (79.4-94.8) fL MCH 23.0 L (25.6-32.2) pg MCHC 30.9 L (32.2-35.5) g/dL RDW 17.9 H (11.7-14.4) % Plt Count 144 L (182-369) x10^3/uL Gran % 53.4 (34.0-71.1) % Immature Gran % (Auto) 1.3 H (0.001-0.429) % Nucleat RBC Rel Count 0.0 (0.00-0.2) % Eos # (Auto) 0 L (0.04-0.36) x10^3/uL Immature Gran # (Auto) 0.07 H (0.001-0.031) x10^3u/L Absolute Lymphs (auto) 1.39 (1.18-3.74) x10^3/uL Absolute Monos (auto) 1.02 H (0.24-0.86) x10^3/uL Absolute Nucleated RBC 0.00 (0.00-0.012) x10^3u/L Lymphocytes % 26.1 (19.3-51.7) % Monocytes % 19.2 H (4.7-12.5) % Eosinophils % 0.0 L (0.7-5.8) % Basophils % 0.0 L (0.1-1.2) % Absolute Granulocytes 2.84 (1.56-6.13) x10^3/uL Basophils # 0 L (0.01-0.08) x10^3/uL Sodium 138 (135-145) mmol/L Potassium 3.3 L (3.5-5.1) mmol/L Chloride 97 L (98-107) mmol/L Carbon Dioxide 30 (22-30) mmol/L Anion Gap 14.9 (5-15) MEQ/L BUN 9 (7-17) mg/dL Creatinine 0.62 (0.52-1.04) mg/dL Estimated GFR 106.4 ML/MIN Glucose 208 H (74-106) mg/dL Calcium 9.4 (8.4-10.2) mg/dL Total Bilirubin 0.80 (0.2-1.3) mg/dL AST 18 (14-36) U/L ALT 12 (0-35) U/L Alkaline Phosphatase 80 (38-126) U/L Serum Total Protein 7.7 (6.3-8.2) g/dL Albumin 4.1 (3.5-5.0) g/dL Amylase 56 (30-110) U/L Lipase 57 (23-300) U/L Urine Color Dark Yellow A (Yellow) Urine Appearance Cloudy A (Clear) Urine pH 5.5 (4.6-8.0) Ur Specific [place] 1.025 (1.005-1.030) Urine Protein 30 (Negative) Urine Glucose (UA) Negative (Negative) mg/dL Urine Ketones Trace A (Negative) Urine Blood Negative (Negative) Urine Nitrite Negative (Negative) Urine Bilirubin Negative (Negative) Urine Urobilinogen 1.0 A (0.2) mg/dL Ur Leukocyte Esterase Negative (Negative) U Hyaline Cast (Auto) NONE SEEN (0-2) /LPF Urine Microscopic RBC 0-2 (0-5) /HPF Urine Microscopic WBC 6-10 A (0-5) /HPF Ur Epithelial Cells Moderate A (None Seen) /HPF Urine Bacteria Moderate A (None Seen) /HPF Urine Culture Reflexed YES (NO) - Progress Progress: improved, pain not gone completely Progress Note: 07/26/24 17:35 My medical decision making and the assignment of moderate complexity to this patient's medical issue today is based on review of the patient's past medical history, review the patient's medication list, reviewed patient drug allergy list, history present illness and physical findings on examination. The workup in this patient includes placement of intravenous line, infusion of normal salin e solution, infusion of Zofran, infusion of Dilaudid, CBC, CMP, amylase, lipase, urinalysis and CT scan of the abdomen pelvis without contrast. Differential diagnosis includes was not limited to urinary tract infection, pyelonephritis, ureterolithiasis, diverticulitis, pancreatitis 07/26/24 19:30 I interpreted the patient's laboratory data results. Based on the laboratory data results, the patient's urine does have white cells and significant amount of bacteria present. Since she has flank pain we will go ahead and proceed with antibiotic treatment. The culture will be pending. There are epithelial cells present. She is mildly dehydrated as well. CT scan of the abdomen pelvis without contrast was compared to similar study dated 02/12/2019. There is moderate fecal stasis. There is persistent hepatosplenomegaly. There is no renal stones present. There is no evidence of obstructive uropathy. There are no acute findings. Medical Desision Making - Independent Historian Additional History obtained from: Spouse - Diagnostic Testing Diagnostic test were ordered, analyzed, and reviewed by me: Yes Radiological Interpretation: Reviewed by me, Teleradiologist Report - Risk of complications The pt has a mod risk of morbidity or mortality based on: Need for prescription drug management - Departure Departure Disposition: Home Clinical Impression: Constipation Condition: Stable Critical Care Time: No Referrals: LUISA DELACRUZ MD [Primary Care Provider] - Follow up/PCP as directed Additional Instructions: Drink plenty of fluids. Take your antibiotics as prescribed. May use [id number] MiraLAX and/or milk of magnesia. Call your primary care provider tomorrow, 07/27/2024, to make arrangements for follow-up appointment for further evaluation and management. Prescriptions: Cephalexin Mh 500 mg [Keflex 500 mg] 500 mg PO TID #21 cap
[2024-07-26 16:14] VITALS: TEMP 98.3
[2024-07-26 16:47] LABS: Absolute Neutrophil Ct (ANC) 2.84 x10^3/uL (1.56-6.13); Basophil (Absolute #) 0 x10^3/uL (0.01-0.08); Eosinophil (Absolute #) 0 x10^3/uL (0.04-0.36); Hematocrit 34.3 % (34.1-44.9); Hemoglobin 10.6 g/dL (11.2-15.7); IMMATURE GRAN # 0.07 x10^3u/L (0.001-0.031); IMMATURE GRAN % 1.3 % (0.001-0.429); Lymphocyte (Absolute #) 1.39 x10^3/uL (1.18-3.74); Lymphocytes % 26.1 % (19.3-51.7); Mean Cell Volume 74.6 fL (79.4-94.8); Mean Corpuscular Hgb Concent. 30.9 g/dL (32.2-35.5); Monocyte (Absolute #) 1.02 x10^3/uL (0.24-0.86); Monocytes % 19.2 % (4.7-12.5); Neutrophil % 53.4 % (34.0-71.1); Platelet Count 144 x10^3/uL (182-369); Red Cell Distribution Width 17.9 % (11.7-14.4); White Blood Count 5.3 x10^3/uL (3.98-10.04)
[2024-07-26 16:56] LABS: Appearance Cloudy (Clear); Bacteria Moderate /HPF (None Seen); Bilirubin Negative (Negative); Blood Negative (Negative); Epithelial Cells Moderate /HPF (None Seen); Glucose, Urine Negative (Negative); Hyaline Casts NONE SEEN /LPF (0-2); Ketones Trace (Negative); Leukocyte Esterase Negative (Negative); Nitrite Negative (Negative); Ph 5.5 (4.6-8.0); Protein,Urine Dip 30 (Negative); RBC 0-2 /HPF (0-5); Specific Gravity 1.025 (1.005-1.030)
[2024-07-26] MEDS ORDERED: Zofran 4 MG/2 ML VIAL ONE (16:57)
[2024-07-26] MEDS ORDERED: Hydromorphone 1 mg/ml Injection ONE (16:58)
[2024-07-26] MEDS ORDERED: Sodium Chloride 0.9% 1000 ML 1,000 ML ONE (16:58)
[2024-07-26] MEDS: Sodium Chloride 0.9% 1000 ML 1,000 ML IV STA (16:59)
[2024-07-26] MEDS: Zofran 4 MG/2 ML VIAL IV ONE (16:59)
[2024-07-26] MEDS: Hydromorphone 1 mg/ml Injection IV ONE (16:59)
[2024-07-26 17:02] LABS: ALBUMIN 4.1 g/dL (3.5-5.0); ANION GAP 14.9 MEQ/L (5-15); BILIRUBIN,TOTAL 0.8 mg/dL (0.2-1.3); Calcium 9.4 mg/dL (8.4-10.2); Creatinine 1 0.62 mg/dL (0.52-1.04); EST GLOMERULAR FILTRATION RATE 106.4 ML/MIN; Potassium 3.3 mmol/L (3.5-5.1); Total Protein 7.7 g/dL (6.3-8.2)
[2024-07-26 17:05] VITALS: O2SAT 97
[2024-07-26] MEDS ORDERED: KEFLEX 500 MG ONE (19:40)
[2024-07-26] MEDS: KEFLEX 500 MG PO ONE (19:41)
[2024-07-26 19:48] VITALS: BP 156/79; PULSE 95; RESP 13
--- NOTE | 2024-07-27 08:45 | XRAY ---
Indication: Left abdomen pain. Multiple contiguous axial images obtained through the abdomen and pelvis without contrast using renal stone protocol. Comparison: February 12, 2019 Lung bases clear. Heart not enlarged again with a few tiny right infrahilar calcified granulomas. No renal calculus or evidence for obstructive uropathy in either system. Noncontrasted stomach and bowel loops appear nonobstructed again with appendectomy. New moderate diffuse scattered colonic fecal debris. Liver enlarged measuring 20.5 cm and spleen remains enlarged measuring 14.2 cm. No free fluid/air. Remaining liver, gallbladder, pancreas, spleen, adrenal glands, kidneys, ureters, bladder, and uterus are unremarkable for noncontrast exam. Progressive worsening moderate scattered arteriosclerotic calcifications without AAA. Osseous structures intact with now osteopenia, minimal/mild degenerative changes throughout thoracolumbar spine, and mild degenerative changes both hips. Impression: 1. Continued negative for renal calculus or evidence for obstructive uropathy. 2. New moderate diffuse fecal stasis. 3. Chronic findings including hepatosplenomegaly, arteriosclerotic disease, chronic bony findings, and old granulomatous disease. 4. Remaining CT abdomen/pelvis without contrast exam is negative.
== END 2024-07-26 20:13 | disposition home or self-care (01) ==
LOC: ED 15:18
DX: K59.00 Constipation, unspecified (principal); R10.32 Left lower quadrant pain; R11.2 Nausea with vomiting, unspecified; I10 Essential (primary) hypertension; E11.9 Type 2 diabetes mellitus without complications; Z79.84 Long term (current) use of oral hypoglycemic drugs; Z79.899 Other long term (current) drug therapy; Z72.0 Tobacco use
CPT/HCPCS: 36415; 74176; 80053; 81001; 82150; 83690; 85025; 87086; 96374; 96375; 99284; J1171; J2405; A9270-GY

== ENCOUNTER 2025-04-14 16:02 | Emergency (ER) | payer OTHER ==
[2025-04-14 16:16] VITALS: TEMP 97.6
[2025-04-14 16:18] LABS: BASOPHIL % 0.0 % (0.1-1.2); Basophil (Absolute #) 0 x10^3/uL (0.01-0.08); Eosinophil (Absolute #) 0 x10^3/uL (0.04-0.36); Hematocrit 33.9 % (34.1-44.9); Hemoglobin 10.0 g/dL (11.2-15.7); IMMATURE GRAN # 0.05 x10^3u/L (0.001-0.031); IMMATURE GRAN % 1.4 % (0.001-0.429); Lymphocyte (Absolute #) 0.61 x10^3/uL (1.18-3.74); Mean Corpuscular Hemoglobin 22.7 pg (25.6-32.2); Mean Corpuscular Hgb Concent. 29.5 g/dL (32.2-35.5); Monocyte (Absolute #) 0.42 x10^3/uL (0.24-0.86); NUCLEATED RBC # 0.00 x10^3u/L (0.00-0.012); NUCLEATED RBC % 0.0 % (0.00-0.2); Platelet Count 125 x10^3/uL (182-369); Red Blood Count 4.40 x10^6/uL (3.93-5.22); White Blood Count 3.5 x10^3/uL (3.98-10.04)
--- NOTE | 2025-04-14 16:33 | ERPHSYRPT ---
- History of Present Illness Time Seen by Provider: 04/14/25 16:05 Historian: patient Patient Subjective Stated Complaint: "woke up in the middle of the night and had this pain and diziness come over me all of a sudden when I stood up. So I sat back down, it went away for a while but never went away fully. I am fine one minute and the next I am not." Triage Nursing Assessment: . Physician History: Patient comes to the emergency room due to chest pain and dizziness going on for the past couple hours at this time she is asymptomatic. Patient has history of having myocardial infarction couple months ago patient states that her pain was sharp in nature located in center chest and started on its own at this time is asymptomatic. Patient has no other complaints. Activities at Onset: none Chest Pain Radiation: no radiation Severity of Pain-Max: none Severity of Pain-Current: none Associated Symptoms: dizziness Prior Chest Pain/Cardiac Workup: heart attack Nitro Today/Relief: no nitro taken today Aspirin Treatment Today: 81 mg x 1 Allergies/Adverse Reactions: aspirin Allergy (Severe, Verified 02/14/25 20:37) type 3 vonWillenbrand's so doesn't clot Home Medications: Aspirin 81 mg PO DAILY 02/14/25 [History] Atorvastatin Calcium 80 mg PO HS 02/14/25 [History] Ferrous Sulfate 324 mg PO .M,W,F 02/14/25 [History] Metoprolol Succinate 25 mg PO DAILY 02/14/25 [History] Nitroglycerin 0.4 mg SL DAILY PRN PRN 02/14/25 [History] lisinopriL [Zestril] 2.5 mg PO DAILY 02/14/25 [History] Insulin Glargine [Lantus Insulin] 30 units SQ HS 04/14/25 [History] Hx Tetanus, Diphtheria Vaccination/Date Given: Yes Hx Influenza Vaccination/Date Given: No Hx Pneumococcal Vaccination/Date Given: No Immunizations Up to Date: No Travel Risk - International Travel Have you traveled outside of the country in past 3 weeks: No - Emerging Infectious Disease Are you exhibiting symptoms associated with any current EIDs: No Symptoms: Abdominal Pain, Vomitting - Review of Systems Constitutional: No Fever, No Chills Eyes: No Symptoms Respiratory: No Cough, No Dyspnea Cardiac: Chest Pain, No Edema, No Syncope Abdominal/Gastrointestinal: No Abdominal Pain, No Nausea, No Vomiting, No Diarrhea Neurological: Dizziness Psychological: No Symptoms - Past Medical History Pertinent Past Medical History: Yes Neurological History: No Pertinent History ENT History: No Pertinent History Cardiac History: Hypertension Respiratory History: No Pertinent History Endocrine Medical History: Diabetes Type II Musculoskeletal History: No Pertinent History GI Medical History: No Pertinent History History: No Pertinent History Psycho-Social History: No Pertinent History Female Reproductive Disorders: Other Other Medical History: BLOOD DISORDER: LUAN WILDEBRENDS. Left ovarian cyst. maker in 2024 and stent placed - Past Surgical History Past Surgical History: Yes Neuro Surgical History: No Pertinent History Cardiac: Cardiac Stent Respiratory: No Pertinent History Gastrointestinal: Appendectomy Genitourinary: No Pertinent History Musculoskeletal: No Pertinent History Female Surgical History: Tubal Ligation Other Surgical History: TUBAL LIGATION IN 1991 - Female History Hx Last Menstrual Period: tubal ligation - Social History Smoking Status: Current every day smoker How long have you smoked: 40 yrs Exposure to second hand smoke: Yes Drug Use: none - Social Determinants of Health Will the patient participate in the screening: Yes Do you worry about a steady place to live?: No Do you have any problems with any of the following?: No known problems In the past 12 months,have you had to go without utilities?: No Transportation Issues: No Has anyone in your support network made you feel unsafe?: No Have you or anyone in your house had to go w/o enough food: No - Nursing Vital Signs Nursing Vital Signs: Initial Vital Signs Temperature 97.6 F 04/14/25 16:03 Pulse Rate 87 04/14/25 16:03 Respiratory Rate 18 04/14/25 16:03 Blood Pressure 149/69 04/14/25 16:03 O2 Sat by Pulse Oximetry 100 04/14/25 16:03 Pain Scale Pain Intensity 5 - Physical Exam General Appearance: no apparent distress, alert Ears, Nose, Throat Exam: normal ENT inspection, moist mucous membranes Respiratory Exam: normal breath sounds, lungs clear, No respiratory distress Cardiovascular Exam: regular rate/rhythm, normal heart sounds Extremity Exam: normal inspection, normal range of motion Neurologic Exam: alert, oriented x 3, cooperative, normal mood/affect, sensation nml, No motor deficits SpO2: 100 - Course EKG Interpreted by Me: RATE, Sinus Rhythm, NORMAL AXIS, NORMAL INTERVALS, NORMAL QRS Ordered Tests: Active Orders 24 hr Category Date Time Status EKG-ER Only STAT Care 04/14/25 16:11 Active CHEST 1 VIEW (PORTABLE) Stat Exams 04/14/25 16:12 Completed CBC W DIFF Stat Lab 04/14/25 16:00 Completed CK-Creatinine Phosphokinase Stat Lab 04/14/25 16:00 Completed CMP Stat Lab 04/14/25 16:00 Completed CULTURE,URINE Stat Lab 04/14/25 16:44 Received TROPONIN Q3H Lab 04/14/25 16:00 Completed TROPONIN Q3H Lab 04/14/25 19:10 Completed TROPONIN Q3H Lab 04/14/25 22:15 Ordered UA W/RFX UR CULTURE Stat Lab 04/14/25 16:44 Completed Lab/Rad Data: Laboratory Result Diagrams 04/14/25 16:00 04/14/25 16:00 Laboratory Results 04/14/25 04/14/25 04/14/25 Range/Units 19:10 16:44 16:00 WBC (3.98-10.04) x10^3/uL RBC (3.93-5.22) x10^6/uL Hgb (11.2-15.7) g/dL Hct (34.1-44.9) % MCV (79.4-94.8) fL MCH (25.6-32.2) pg MCHC (32.2-35.5) g/dL RDW (11.7-14.4) % Plt Count (182-369) x10^3/uL Gran % (34.0-71.1) % Immature Gran % (Auto) (0.001-0.429) % Nucleat RBC Rel Count (0.00-0.2) % Eos # (Auto) (0.04-0.36) x10^3/uL Immature Gran # (Auto) (0.001-0.031) x10^3u/L Absolute Lymphs (auto) (1.18-3.74) x10^3/uL Absolute Monos (auto) (0.24-0.86) x10^3/uL Absolute Nucleated RBC (0.00-0.012) x10^3u/L Lymphocytes % (19.3-51.7) % Monocytes % (4.7-12.5) % Eosinophils % (0.7-5.8) % Basophils % (0.1-1.2) % Absolute Granulocytes (1.56-6.13) x10^3/uL Basophils # (0.01-0.08) x10^3/uL Sodium (135-145) mmol/L Potassium (3.5-5.1) mmol/L Chloride (98-107) mmol/L Carbon Dioxide (22-30) mmol/L Anion Gap (5-15) MEQ/L BUN (7-17) mg/dL Creatinine (0.52-1.04) mg/dL Estimated GFR ML/MIN Glucose (74-106) mg/dL Calcium (8.4-10.2) mg/dL Total Bilirubin (0.2-1.3) mg/dL AST (14-36) U/L ALT (0-35) U/L Alkaline Phosphatase (38-126) U/L Creatine Kinase (30-135) U/L Troponin I < 0.012 < 0.012 (0.000-0.033) ng/mL Serum Total Protein (6.3-8.2) g/dL Albumin (3.5-5.0) g/dL Urine Color Dark Yellow A (Yellow) Urine Appearance Clear (Clear) Urine pH 6.0 (4.6-8.0) Ur Specific [place] 1.020 (1.005-1.030) Urine Protein Trace A (Negative) Urine Glucose (UA) Negative (Negative) mg/dL Urine Ketones Trace A (Negative) Urine Blood Negative (Negative) Urine Nitrite Negative (Negative) Urine Bilirubin Small A (Negative) Urine Urobilinogen 1.0 A (0.2) mg/dL Ur Leukocyte Esterase Small A (Negative) U Hyaline Cast (Auto) 3-5 A (0-2) /LPF Urine Microscopic RBC 3-5 (0-5) /HPF Urine Microscopic WBC 11-20 A (0-5) /HPF Ur Epithelial Cells Moderate A (None Seen) /HPF Urine Bacteria None Seen (None Seen) /HPF Urine Culture Reflexed YES (NO) 04/14/25 04/14/25 Range/Units 16:00 16:00 WBC 3.5 L (3.98-10.04) x10^3/uL RBC 4.40 (3.93-5.22) x10^6/uL Hgb 10.0 L (11.2-15.7) g/dL Hct 33.9 L (34.1-44.9) % MCV 77.0 L (79.4-94.8) fL MCH 22.7 L (25.6-32.2) pg MCHC 29.5 L (32.2-35.5) g/dL RDW 19.1 H (11.7-14.4) % Plt Count 125 L (182-369) x10^3/uL Gran % 68.9 (34.0-71.1) % Immature Gran % (Auto) 1.4 H (0.001-0.429) % Nucleat RBC Rel Count 0.0 (0.00-0.2) % Eos # (Auto) 0 L (0.04-0.36) x10^3/uL Immature Gran # (Auto) 0.05 H (0.001-0.031) x10^3u/L Absolute Lymphs (auto) 0.61 L (1.18-3.74) x10^3/uL Absolute Monos (auto) 0.42 (0.24-0.86) x10^3/uL Absolute Nucleated RBC 0.00 (0.00-0.012) x10^3u/L Lymphocytes % 17.6 L (19.3-51.7) % Monocytes % 12.1 (4.7-12.5) % Eosinophils % 0.0 L (0.7-5.8) % Basophils % 0.0 L (0.1-1.2) % Absolute Granulocytes 2.39 (1.56-6.13) x10^3/uL Basophils # 0 L (0.01-0.08) x10^3/uL Sodium 138 (135-145) mmol/L Potassium 4.0 (3.5-5.1) mmol/L Chloride 101 (98-107) mmol/L Carbon Dioxide 24 (22-30) mmol/L Anion Gap 17.1 H (5-15) MEQ/L BUN 10 (7-17) mg/dL Creatinine 0.65 (0.52-1.04) mg/dL Estimated GFR 104.6 ML/MIN Glucose 271 H (74-106) mg/dL Calcium 9.1 (8.4-10.2) mg/dL Total Bilirubin 1.20 (0.2-1.3) mg/dL AST 17 (14-36) U/L ALT 12 (0-35) U/L Alkaline Phosphatase 101 (38-126) U/L Creatine Kinase 72 (30-135) U/L Troponin I (0.000-0.033) ng/mL Serum Total Protein 8.2 (6.3-8.2) g/dL Albumin 4.0 (3.5-5.0) g/dL Urine Color (Yellow) Urine Appearance (Clear) Urine pH (4.6-8.0) Ur Specific [place] (1.005-1.030) Urine Protein (Negative) Urine Glucose (UA) (Negative) mg/dL Urine Ketones (Negative) Urine Blood (Negative) Urine Nitrite (Negative) Urine Bilirubin (Negative) Urine Urobilinogen (0.2) mg/dL Ur Leukocyte Esterase (Negative) U Hyaline Cast (Auto) (0-2) /LPF Urine Microscopic RBC (0-5) /HPF Urine Microscopic WBC (0-5) /HPF Ur Epithelial Cells (None Seen) /HPF Urine Bacteria (None Seen) /HPF Urine Culture Reflexed (NO) - Progress Progress Note: 04/14/25 20:13 Patient has an EKG that is normal sinus rhythm no axis deviation no heart block troponin negative x 2 at this time is asymptomatic. Patient because she is asymptomatic with negative troponins will be advised to follow-up with cardiology as an outpatient. Also advised that if she has return of chest pain to return to the emergency room. At this time patient is not hypoxic or tachypneic nor is patient tachycardic breathing that would suggest the patient has a PE or dissection. - Departure Departure Disposition: Home Clinical Impression: Chest pain, rule out acute myocardial infarction Condition: Good Critical Care Time: No Referrals: GIDEON JUAREZ [Primary Care Provider, INTERNAL MEDICINE] - Follow up/PCP as directed Instructions: Chest Pain (DC), Atypical Chest Pain
[2025-04-14 16:35] LABS: CK-Creatinine Phosphokinase 72.0 U/L (30-135); Calcium 9.1 mg/dL (8.4-10.2); Carbon Dioxide 24.0 mmol/L (22-30); Creatinine 1 0.65 mg/dL (0.52-1.04); EST GLOMERULAR FILTRATION RATE 104.6 ML/MIN; Glucose 271.0 mg/dL (74-106); Potassium 4.0 mmol/L (3.5-5.1); SGOT/AST 17.0 U/L (14-36); SGPT/ALT 12.0 U/L (0-35); Total Protein 8.2 g/dL (6.3-8.2)
--- NOTE | 2025-04-14 16:52 | XRAY ---
Indication: Chest pain. Comparison: February 14, 2025 Portable chest inflated and now clear. Heart not enlarged. Bony thorax intact again with mild degenerative changes. No new/acute findings.
[2025-04-14 16:55] LABS: Glucose, Urine Negative (Negative); Protein,Urine Dip Trace (Negative)
[2025-04-14 18:31] VITALS: O2SAT 100
[2025-04-14 19:14] VITALS: BP 129/71; PULSE 75; RESP 8
== END 2025-04-14 20:29 | disposition home or self-care (01) ==
LOC: ED 16:02
DX: R07.9 Chest pain, unspecified (principal); R42 Dizziness and giddiness; I10 Essential (primary) hypertension; E11.9 Type 2 diabetes mellitus without complications; Z79.4 Long term (current) use of insulin; Z79.899 Other long term (current) drug therapy; Z72.0 Tobacco use

== ENCOUNTER 2025-04-22 12:39 | Emergency (ER) | payer OTHER ==
--- NOTE | 2025-04-22 12:42 | ERPHSYRPT ---
- History of Present Illness Time Seen by Provider: 04/22/25 12:42 Historian: patient, family, EMS Exam Limitations: no limitations Physician History: This is a 55-year-old white female patient arrives by the paramedics and is a patient of Dr. Fior Juarez for chest tightness that occurred soon after patient vomited after meal ingestion. Other family members did not have the same meal. Patient has been seen several times for chest pain symptoms since January 2025. She had a cardiac stent placed in January 2025. Patient has a history of von Willebrand's disease, she is on a baby aspirin daily, hyperlipidemia, hypertension, insulin-dependent diabetic. Patient arrives with the vital signs stable. She does not appear to be in distress. Timing/Duration: yesterday Quality: tightness Location: substernal, central Chest Pain Radiation: no radiation Severity of Pain-Max: moderate Severity of Pain-Current: mild Modifying Factors: Improves With: nothing Associated Symptoms: vomiting (Prior to the chest tightness), abdominal pain (Epigastrium last evening) Nitro Today/Relief: no nitro taken today Aspirin Treatment Today: 81 mg x 1 (Took at home earlier today), 81 mg x 3 (Provided by ED) Allergies/Adverse Reactions: aspirin Allergy (Severe, Verified 04/22/25 12:41) type 3 vonWillenbrand's so doesn't clot, pt states she takes at home Home Medications: Aspirin 81 mg PO DAILY 02/14/25 [History] Atorvastatin Calcium 80 mg PO HS 02/14/25 [History] Ferrous Sulfate 324 mg PO .M,W,F 02/14/25 [History] Metoprolol Succinate 25 mg PO DAILY 02/14/25 [History] Nitroglycerin 0.4 mg SL DAILY PRN PRN 02/14/25 [History] Insulin Glargine [Lantus Insulin] 30 units SQ HS 04/14/25 [History] Hx Tetanus, Diphtheria Vaccination/Date Given: Yes Hx Influenza Vaccination/Date Given: No Hx Pneumococcal Vaccination/Date Given: No Travel Risk - International Travel Have you traveled outside of the country in past 3 weeks: No - Emerging Infectious Disease Are you exhibiting symptoms associated with any current EIDs: No Symptoms: Abdominal Pain, Vomitting - Review of Systems Constitutional: No Symptoms Eyes: No Symptoms Ears, Nose, & Throat: No Symptoms Respiratory: No Symptoms Cardiac: Chest Pain (Described as a mild substernal central tightness) Abdominal/Gastrointestinal: Abdominal Pain (Epigastrium last evening. Symptoms resolved), Vomiting (Last evening symptoms resolved) Genitourinary Symptoms: No Symptoms Musculoskeletal: No Symptoms Skin: No Symptoms Neurological: No Symptoms Psychological: No Symptoms Endocrine: No Symptoms Hematologic/Lymphatic: No Symptoms Immunological/Allergic: No Symptoms All Other Systems: Reviewed and Negative - Past Medical History Pertinent Past Medical History: Yes Neurological History: No Pertinent History ENT History: No Pertinent History Cardiac History: Hypertension Respiratory History: No Pertinent History Endocrine Medical History: Diabetes Type II Musculoskeletal History: No Pertinent History GI Medical History: No Pertinent History History: No Pertinent History Psycho-Social History: No Pertinent History Female Reproductive Disorders: Other Other Medical History: BLOOD DISORDER: LUAN WILDEBRENDS. Left ovarian cyst. maker in 2024 and stent placed - Past Surgical History Past Surgical History: Yes Neuro Surgical History: No Pertinent History Cardiac: Cardiac Stent Respiratory: No Pertinent History Gastrointestinal: Appendectomy Genitourinary: No Pertinent History Musculoskeletal: No Pertinent History Female Surgical History: Tubal Ligation Other Surgical History: TUBAL LIGATION IN 1991 - Female History Hx Last Menstrual Period: tubal ligation - Social History Smoking Status: Current every day smoker How long have you smoked: 40 yrs Exposure to second hand smoke: Yes Drug Use: none - Social Determinants of Health Will the patient participate in the screening: Yes Do you worry about a steady place to live?: No In the past 12 months,have you had to go without utilities?: No Transportation Issues: No Has anyone in your support network made you feel unsafe?: No Have you or anyone in your house had to go w/o enough food: No - Nursing Vital Signs Nursing Vital Signs: Initial Vital Signs Pulse Rate 80 04/22/25 12:43 Pain Scale Pain Intensity 8 - Physical Exam General Appearance: no apparent distress, alert, anxiety, thin Eye Exam: PERRL/EOMI, eyes nml inspection Ears, Nose, Throat Exam: normal ENT inspection, moist mucous membranes Neck Exam: normal inspection, non-tender, supple, full range of motion Respiratory Exam: normal breath sounds, chest tenderness, lungs clear, airway intact, No respiratory distress Cardiovascular Exam: regular rate/rhythm, normal heart sounds, normal peripheral pulses Gastrointestinal/Abdomen Exam: soft, normal bowel sounds, No tenderness Pelvic Exam: not done Rectal Exam: not done Back Exam: normal inspection, normal range of motion, No CVA tenderness, No vertebral tenderness Extremity Exam: normal inspection, normal range of motion, pelvis stable Neurologic Exam: alert, oriented x 3, cooperative, slab lifting engineer II-XII nml as tested, nml cerebellar function, nml station & gait, sensation nml Skin Exam: normal color, warm, dry Lymphatic Exam: No adenopathy SpO2 Interpretation: normal O2 Delivery: Room Air - Course Nursing assessment & vital signs reviewed: Yes EKG Interpreted by Me: RATE, Sinus Rhythm, NORMAL AXIS, NORMAL INTERVALS, NORMAL QRS (QTc is 457. I do not), Other ( interpret an acute ischemic twelve-lead EKG) Ordered Tests: Active Orders 24 hr Category Date Time Status EKG-ER Only STAT Care 04/22/25 13:03 Active EKG-ER Only STAT Care 04/22/25 14:31 Active IV Insertion STAT Care 04/22/25 13:03 Active Pulse Oximetry (ED) STAT Care 04/22/25 13:03 Active CBC W DIFF Stat Lab 04/22/25 13:06 Completed CMP Stat Lab 04/22/25 13:06 Completed MAGNESIUM Stat Lab 04/22/25 13:06 Completed Manual Differential NC Stat Lab 04/22/25 13:06 Completed NT PRO BNPII Stat Lab 04/22/25 13:06 Completed PROTIME WITH INR Stat Lab 04/22/25 13:06 Completed TROPONIN Q4H Lab 04/22/25 13:06 Completed TROPONIN Q4H Lab 04/22/25 15:01 Completed TROPONIN Q4H Lab 04/22/25 21:15 Ordered Medication Summary Discontinued Medications Generic Name Dose Route Start Last Admin Trade Name Timmyq PRN Reason Stop Dose Admin Aspirin 243 mg 04/22/25 13:03 04/22/25 13:15 Aspirin 81 Mg Tab.Chew PO 04/22/25 13:04 243 mg STAT ONE Administration Aspirin Confirm 04/22/25 13:13 Aspirin 81 Mg Tab.Chew Administered 04/22/25 13:14 Dose 243 mg .ROUTE .STK-MED ONE Furosemide 40 mg 04/22/25 14:31 04/22/25 14:42 Furosemide 40 Mg/4 Ml Vial IV 04/22/25 14:32 40 mg STAT ONE Administration Furosemide Confirm 04/22/25 14:41 Furosemide 40 Mg/4 Ml Vial Administered 04/22/25 14:42 Dose 40 mg .ROUTE .STK-MED ONE Potassium Chloride 10 meq 04/22/25 13:57 04/22/25 14:04 Potassium Chloride Tab 10 Meq Tab PO 04/22/25 13:58 10 meq STAT ONE Administration Potassium Chloride Confirm 04/22/25 14:03 Potassium Chloride Tab 10 Meq Tab Administered 04/22/25 14:04 Dose 10 meq .ROUTE .STK-MED ONE Lab/Rad Data: Laboratory Result Diagrams 04/22/25 13:06 04/22/25 13:06 Laboratory Results 04/22/25 04/22/25 04/22/25 Range/Units 15:01 13:06 13:06 WBC (3.98-10.04) x10^3/uL RBC (3.93-5.22) x10^6/uL Hgb (11.2-15.7) g/dL Hct (34.1-44.9) % MCV (79.4-94.8) fL MCH (25.6-32.2) pg MCHC (32.2-35.5) g/dL RDW (11.7-14.4) % Plt Count (182-369) x10^3/uL Segmented Neutrophils (34.0-71.1) % Lymphocytes (Manual) (19.3-51.7) % Monocytes (Manual) (4.7-12.5) % Atypical Lymphocytes % Hypochromia Platelet Estimate (NORMAL) RBC Morphology Microcytosis Macrocytosis PT 11.9 (9.4-12.5) SECONDS INR 1.07 (0.8-3.0) Sodium (135-145) mmol/L Potassium (3.5-5.1) mmol/L Chloride (98-107) mmol/L Carbon Dioxide (22-30) mmol/L Anion Gap (5-15) MEQ/L BUN (7-17) mg/dL Creatinine (0.52-1.04) mg/dL Estimated GFR ML/MIN Glucose (74-106) mg/dL Calcium (8.4-10.2) mg/dL Magnesium (1.6-2.3) mg/dL Total Bilirubin (0.2-1.3) mg/dL AST (14-36) U/L ALT (0-35) U/L Alkaline Phosphatase (38-126) U/L Troponin I < 0.012 < 0.012 (0.000-0.033) ng/mL NT-Pro-B Natriuret Pep (<300) pg/mL Serum Total Protein (6.3-8.2) g/dL Albumin (3.5-5.0) g/dL 04/22/25 04/22/25 Range/Units 13:06 13:06 WBC 6.9 (3.98-10.04) x10^3/uL RBC 4.28 (3.93-5.22) x10^6/uL Hgb 9.8 L (11.2-15.7) g/dL Hct 33.0 L (34.1-44.9) % MCV 77.1 L (79.4-94.8) fL MCH 22.9 L (25.6-32.2) pg MCHC 29.7 L (32.2-35.5) g/dL RDW 20.3 H (11.7-14.4) % Plt Count 120 L (182-369) x10^3/uL Segmented Neutrophils 62 (34.0-71.1) % Lymphocytes (Manual) 27 (19.3-51.7) % Monocytes (Manual) 6 (4.7-12.5) % Atypical Lymphocytes 5 % Hypochromia 1+ Platelet Estimate DECREASED (NORMAL) RBC Morphology ABNORMAL Microcytosis 1+ Macrocytosis 1+ PT (9.4-12.5) SECONDS INR (0.8-3.0) Sodium 138 (135-145) mmol/L Potassium 3.0 L* (3.5-5.1) mmol/L Chloride 100 (98-107) mmol/L Carbon Dioxide 25 (22-30) mmol/L Anion Gap 15.2 H (5-15) MEQ/L BUN 8 (7-17) mg/dL Creatinine 0.54 (0.52-1.04) mg/dL Estimated GFR 109.3 ML/MIN Glucose 150 H (74-106) mg/dL Calcium 9.2 (8.4-10.2) mg/dL Magnesium 1.7 (1.6-2.3) mg/dL Total Bilirubin 1.00 (0.2-1.3) mg/dL AST 18 (14-36) U/L ALT 16 (0-35) U/L Alkaline Phosphatase 89 (38-126) U/L Troponin I (0.000-0.033) ng/mL NT-Pro-B Natriuret Pep 4840 (<300) pg/mL Serum Total Protein 7.3 (6.3-8.2) g/dL Albumin 3.8 (3.5-5.0) g/dL - Progress Progress: improved, re-examined Air Movement: good Progress Note: 04/22/25 14:25 My medical decision making and the assignment of moderate complexity of this patient's medical issue today is based on review of the patient's past medical history, reviewed patient's medication list, reviewed patient drug allergy list, history present illness and physical findings on examination. The workup in this patient includes placement of intravenous line, twelve-lead EKG, CBC, CMP, magnesium level, BNP, troponin level. Differential diagnosis includes but is not limited to musculoskeletal pain, epigastric discomfort, myocardial infarction, electrolyte abnormalities, arrhythmias I interpreted the patient's second twelve-lead EKG performed on 04/22/2025 at 1318. Heart rate is 83 bpm. Pattern is normal sinus rhythm. There are nonspecific T abnormalities. There is normal axis deviation. There is normal intervals and normal QRS. QTc is 435. No evidence of acute ischemia on this twelve-lead EKG. No significant change from the prior twelve-lead EKG. 04/22/25 15:48 I interpreted the patient's laboratory data results. Based on laboratory data results, the patient does have a potassium level of 3.0. We are providing her with oral potassium supplementation. Her hemoglobin is 9.8 and looking back in the last 2 to 3 months and this value is in her usual range. She has a BNP of 4840 which I have no comparison values at our facility. The patient has had 2 troponins that are normal/negative. Patient's chest pain has resolved. Blood Culture(s) Obtained: No Antibiotics given: No Counseled pt/family regarding: lab results, diagnosis, need for follow-up Medical Desision Making - Independent Historian Additional History obtained from: Spouse - Diagnostic Testing Diagnostic test were ordered, analyzed, and reviewed by me: Yes - Risk of complications Low Risk: Low risk of morbidity from additional dx testing or treatment The pt has a mod risk of morbidity or mortality based on: Need for prescription drug management - Departure Departure Disposition: Home Clinical Impression: Elevated brain natriuretic peptide (BNP) level, Hypokalemia, Nonspecific chest pain Condition: Stable Critical Care Time: No Referrals: GIDEON JUAREZ [Primary Care Provider, INTERNAL MEDICINE] - Follow up/PCP as directed Additional Instructions: Take your medications as prescribed. Call your blending operator on 04/25/2025 in the morning, to make arrangements for follow-up appointment and to discuss restarting your furosemide medication and arrange follow-up appointment to be seen in the next 3 to 5 days. Your potassium level today was 3.0. Your BNP level was 4840 Prescriptions: Potassium Chloride Tab* [Klor Con] 10 meq PO BID 3 Days #5 tab
[2025-04-22 12:46] VITALS: TEMP 97.5
[2025-04-22] MEDS ORDERED: BABY ASPIRIN 81 MG CHEW ONE (13:13)
[2025-04-22] MEDS: BABY ASPIRIN 81 MG CHEW PO ONE (13:15)
[2025-04-22 13:19] LABS: Hematocrit 33.0 % (34.1-44.9); Hemoglobin 9.8 g/dL (11.2-15.7); Mean Corpuscular Hemoglobin 22.9 pg (25.6-32.2); Mean Corpuscular Hgb Concent. 29.7 g/dL (32.2-35.5); Platelet Count 120 x10^3/uL (182-369); Red Blood Count 4.28 x10^6/uL (3.93-5.22); White Blood Count 6.9 x10^3/uL (3.98-10.04)
[2025-04-22 13:29] LABS: INR 1.07 (0.8-3.0); PROTIME 11.9 SECONDS (9.4-12.5)
[2025-04-22 13:39] LABS: Calcium 9.2 mg/dL (8.4-10.2); Carbon Dioxide 25.0 mmol/L (22-30); Creatinine 1 0.54 mg/dL (0.52-1.04); EST GLOMERULAR FILTRATION RATE 109.3 ML/MIN; Glucose 150.0 mg/dL (74-106); NT PRO BNPII 4840.0 pg/mL (<300); SGOT/AST 18.0 U/L (14-36); SGPT/ALT 16.0 U/L (0-35); Total Protein 7.3 g/dL (6.3-8.2)
[2025-04-22 13:45] LABS: Potassium 3.0 mmol/L (3.5-5.1)
[2025-04-22] MEDS ORDERED: Klor Con ONE (14:03)
[2025-04-22] MEDS: Klor Con PO ONE (14:04)
[2025-04-22 14:17] LABS: Macrocytosis 1+; Microcytosis 1+; Total Cells Counted 100
[2025-04-22] MEDS ORDERED: Lasix 40 MG/4 ML ONE (14:41)
[2025-04-22] MEDS: Lasix 40 MG/4 ML IV ONE (14:42)
[2025-04-22 17:06] VITALS: BP 106/72; PULSE 86; RESP 18; O2SAT 100
== END 2025-04-22 17:24 | disposition home or self-care (01) ==
LOC: ED 12:39
DX: E87.6 Hypokalemia (principal); R79.89 Other specified abnormal findings of blood chemistry; R07.9 Chest pain, unspecified; I10 Essential (primary) hypertension; E11.9 Type 2 diabetes mellitus without complications; Z79.4 Long term (current) use of insulin; Z79.899 Other long term (current) drug therapy; Z72.0 Tobacco use